=== PATIENT | female | born 1940 | race Caucasian/White ===

== ENCOUNTER 2023-04-03 12:30 | Emergency (ER) | payer MEDICARE, BC, SELFPAY ==
[2023-04-03] VITALS (10 sets, daily range): BP systolic 98–126; BP diastolic 49–84
[2023-04-03 13:04] LABS: % Basophils 0.4 % (0-2); % Eosinophils 0.6 % (0-6); % Immature Granulocytes 0.4 % (0-0.5); % Lymphocytes 23.2 % (20.5-51.1); % Monocytes 7.1 % (1.7-9.3); % Neutrophils 68.3 % (42.2-75.2); Absolute Lymphocytes 1.6 10^3/uL (1.2-3.4); Absolute Monocytes 0.5 10^3/uL (0.1-0.6); Absolute Neutrophils 4.8 10^3/uL (1.4-6.5); Hematocrit 36.7 % (37.0-47.0); Hemoglobin 12.4 g/dL (12.0-16.0); Mean Corp Hgb Conc. 33.8 g/dL (33.0-37.0); Mean Corpuscular Hgb 30.3 pg (27.0-31.0); Mean Corpuscular Volume 89.7 fL (81.0-99.0); Mean Platelet Volume 9.2 fL (7.4-10.4); Nucleated Red Blood Cells % 0 %; Platelet Count 142 10^3/uL (130-400); Red Blood Cell Count 4.09 10^6/uL (4.20-5.40); Red Cell Dist. Width 13.8 % (11.5-14.5)
[2023-04-03 13:15] LABS: COVID-19 Antigen Negative (Negative)
[2023-04-03 13:33] LABS: ALT (SGPT) 27 U/L (0-35); AST (SGOT) 43 U/L (14-36); Albumin 3.6 g/dl (3.5-5.0); Alkaline Phosphatase 87 U/L (38-126); Blood Urea Nitrogen 18 mg/dl (7-17); Calcium 9.5 mg/dl (8.4-10.2); Carbon Dioxide 23 mmol/L (22-30); Chloride 99 mmol/L (98-107); Glucose 128 mg/dl (70-99); Potassium 3.8 mmol/L (3.5-5.1); Sodium 132 mmol/L (135-145); Total Bilirubin 0.8 mg/dl (0.2-1.3); Total Protein 6.1 g/dl (6.3-8.2); eGFR > 60.00
--- NOTE | 2023-04-03 13:34 | ED.GENMED ---
History of Present Illness
General
Chief Complaint: Fatigue
Source: patient and records
Exam Limitations: clinical condition
Time Seen by Provider: 04/03/23 13:21
Travel History
Have you had any contact with someone who has COVID-19?: Yes
Comment: santinorajesh cruz
Do you have any symptoms of coronavirus? Fever > 100 degrees, chills, cough, shortness of breath, sore throat, loss of taste or smell, muscle aches, or headache?: Yes
Symptoms:: cough
History of Present Illness
History of Present Illness:
82-year-old female sent in for general weakness fatigue patient states she has had a cough for few days. Did vomit this morning apparently. Low-grade fever. No shortness of breath chest pain abdominal pain no urinary symptoms.
Past History
Past History
ED Past Medical History: Cancer, CVA, GERD, HTN, IDDM and Other
ED Past Surgical History: Cholecystectomy and Orthopedic
Social History
Tobacco: Non-smoker
Alcohol: None
Drug: None
Personal:
Living: half-way ([facility])
Employment: Other
Family History
Family History: Other
Review of Systems
Review of Systems
All Other Systems: Not applicable
Cardiac: Denies chest pain
ABD/GI: Denies abdominal pain
Phy Exam
Physical Exam
Physical Exam:
GENERAL: Alert. Answers questions appropriately. No distress. Elderly and frail
EYE: Orbits normal.
NECK: Supple, no significant adenopathy.
ENT: Pharynx without erythema
CARDIAC: Regular rate and rhythm with moderate midsystolic murmur
LUNGS: No respiratory distress. Pulse ox is 90 to 94%. Occasional rhonchi in the right base
ABDOMEN: Soft, without focal tenderness or distention
NEUROLOGICAL: Alert. Grossly nonfocal
SKIN: Warm and dry, no rash or lesion, no discoloration, skin intact.
MUSCULOSKELETAL: No edema,no deformity.Good color
PSYCH: Normal and appropriate interaction.
Course
Orders/Labs/Results
Orders:
Orders
04/03/23 12:45
CMP [Comprehensive Metabolic Panel] Urgent
COVID-19 Antigen Urgent
Source: Nasal Swab
Complete Blood Count/With Diff Urgent
Influenza A+B Rapid Molecular Urgent
MAY Source: Nasal Swab
Specimen Description:
04/03/23 13:26
Electrocardiogram (*1) Urgent
Reason for Study: Other
Other Reason for Exam: sepsis
Cardiac Monitoring- Treatment ONCE
EKG- Treatment ONCE
IV Insert/Care/Rem.- Treatment PRN
CXR2 [CR Chest - 2 Views ] Urgent
Comment:
Reason For Exam: cough weak
Pulse Ox/cont/shift [RESP] Urgent
Quantity: 1
04/03/23 13:39
Blood Culture Q30M
MAY Source: Blood/Venous
Specimen Description:
Blood Culture Q30M
MAY Source: Blood/Venous
Specimen Description:
04/03/23 17:22
Urinalysis Reflex To Culture Urgent
Date Specimen was Collected: 04/03/23
Time Specimen was Collected: 17:21
Abnormal Lab Results
04/03/23
12:45
RBC 4.09 L 10^6/uL
(4.20-5.40)
Hct 36.7 L %
(37.0-47.0)
Sodium 132 L mmol/L
(135-145)
BUN 18 H mg/dl
(7-17)
Glucose 128 H mg/dl
(70-99)
AST 43 H U/L
(14-36)
Total Protein 6.1 L g/dl
(6.3-8.2)
04/03/23 12:45
04/03/23 12:45
Vital Signs
Initial and Last Documented VS:
Initial Vital Signs
Temp Pulse Resp BP Pulse Ox
97.9 F 67 16 109/59 95
04/03/23 12:35 04/03/23 12:35 04/03/23 12:35 04/03/23 12:35 04/03/23 12:35
Last Documented Vital Signs
Temp Pulse Resp BP Pulse Ox
97.9 F 63 27 114/59 95
04/03/23 12:35 04/03/23 15:15 04/03/23 15:15 04/03/23 15:00 04/03/23 15:15
*Radiology
Radiology exam reviewed: radiology read reviewed (Negative)
*Pulse Oximetry
Patient hypoxic: no
*EKG
Interpreted by ED Provider?: Yes
Interpretation: abnormal
Comparison EKG: no changes
Heart Rate: 63
Rate: normal
Rhythm: sinus
[place]: normal axis
Interval: first degree heart block
QRS Pattern: normal QRS
Ischemia: no ischemia
*Critical Care Note
Total Time (30-74mins, 75-104mins- exclusive of procedures): Not Applicable
Data Reviewed
Review of Other/Old Records Reveals: Labs, Records and Testing
Update Note
Update Note:
Patient has remained medically stable and nontoxic. In no distress. Symptoms are all viral URI-like symptoms. I did try to contact the daughter to inform her of our plan to discharge and follow-up
ED Attending Note
-
Portions of this chart may have been created with voice recognition software.� Occasional wrong word or��sound alike� substitutions may have occurred due to the inherent limitations of voice recognition software.
Discharge Plan
Departure
Patient Disposition: Home (Routine Discharge)
Date of Disposition: 04/03/23
Time of Disposition: 18:44
Patient with high blood pressure during this ER visit?: No
Discharge Problem:
URI/fatigue
Instructions: Fatigue (DC), Generalized Weakness (DC)
Prescriptions:
No Action
metformin 500 MG tablet
500 mg PO BID@0800,1700
atorvastatin 80 MG tablet
80 mg PO HS
acetaminophen 325 MG tablet
650 mg PO Q4HPRN PRN (Reason: mild pain/fever>100.4)
metoprolol succinate 25 MG tablet extended release 24 hr
25 mg PO DAILY
lacosamide [Vimpat] 150 MG tablet
150 mg PO BID
nitroglycerin [Nitrostat] 0.4 mg Tablet, Sublingual
0.4 mg SUBLINGUAL [id number] PRN (Reason: chest pain)
hydrocortisone 10 mg Tablet
10 mg PO BID
(DME) Ocusoft Eyelid Cleansing Pads Pad
MISCELLANEOUS
Rx Instructions:
apply topical to both eyes
ergocalciferol (vitamin D2) 1,250 mcg (50,000 unit) Capsule
1,250 mcg PO QMONTH
sodium chloride 0.65 % Aerosol,[place]
1 spray INTRANASAL Q4HPRN PRN (Reason: congestion)
hydralazine 25 mg tablet
50 mg PO Q8H
famotidine [Pepcid] 20 mg Tablet
20 mg PO BID
magnesium hydroxide [Milk of Magnesia] 400 mg/5 mL Suspension
2,400 mg PO DAILYPRN PRN (Reason: constipation)
bisacodyl [Dulcolax (bisacodyl)] 10 mg Suppository
10 mg AR [id number] PRN (Reason: if no bm aftr mo)
ferrous sulfate 325 mg (65 mg iron) Tablet
325 mg PO MOWEFR
Coricidin HBP Cold and Flu 2-325 mg Tablet
1 tab PO Q4HPRN PRN (Reason: cough)
magnesium oxide 400 mg magnesium Tablet
400 mg PO DAILY
Senna Plus 8.6-50 mg Capsule
2 tab-cap PO Q48H@0800,1700
Gemtesa 75 mg Tablet
75 mg PO QPM
Referrals:
Dov Marshall MD [Family Provider] - Follow up in 2-3 days
Interventions
Interventions:
*Risk Screen - Suicide Last Done: 04/03/23 12:35
*General Assessment Last Done: 04/03/23 12:35
*Neglect/Abuse Screening Last Done: 04/03/23 12:35
ED- Fall Risk Assessment Last Done: 04/03/23 12:35
*ED COVID-19 Vaccine History Last Done: 04/03/23 12:35
[2023-04-03 17:30] LABS: Urine Albumin Negative (Neg - Trace); Urine Bilirubin Negative (Negative); Urine Character Clear (Clear); Urine Color Yellow; Urine Glucose Negative (Negative); Urine Ketone Negative (Negative); Urine Leukocyte Negative (Negative); Urine Nitrite Negative (Negative); Urine Occult Blood Negative (Negative); Urine Specific Gravity 1.015 (<1.030); Urine Urobilinogen Negative (Neg - 1+)
[2023-04-03] MEDS: TYLENOL 650 MG PO (20:23)
== END 2023-04-03 22:50 | disposition home or self-care (01) ==
LOC: EMR 12:30
PROVIDERS: Student in an Organized Health Care Education/Training Program; EMERGENCY PHYSICIAN Emergency Medicine; FAMILY PHYSICIAN Internal Medicine Geriatric Medicine
DX: R53.83 Other fatigue (principal); J06.9 Acute upper respiratory infection, unspecified
CPT/HCPCS: 99285; 71046; 80053; 81003; 85025; 87040; 87502; 87811; 93005

== ENCOUNTER → 2023-04-12 10:48 | Outpatient (REF) | payer MEDICARE, BC, SELFPAY ==
[2023-04-12 10:59] LABS: Urine Albumin Trace (Neg - Trace); Urine Bilirubin Negative (Negative); Urine Character Very Cloudy (Clear); Urine Color Straw; Urine Glucose Negative (Negative); Urine Ketone Negative (Negative); Urine Leukocyte 2+ (Negative); Urine Nitrite Positive (Negative); Urine Occult Blood Negative (Negative); Urine Urobilinogen Negative (Neg - 1+)
[2023-04-12 11:10] LABS: Urine Squamous Cell >30 /LPF (Few)
[2023-04-12 11:11] LABS: Urine Bacteria Many (Negative); Urine Red Blood Cell 0-2 /HPF (0-2); Urine White Cell 70-80 /HPF (0-5)
== END ==
LOC: OLABN 10:48
PROVIDERS: ATTENDING PHYSICIAN Internal Medicine Geriatric Medicine
DX: R30.9 Painful micturition, unspecified (principal)
CPT/HCPCS: 81003; 81015; 87086; 87088; 87186

== ENCOUNTER → 2023-05-04 09:27 | Outpatient (REF) | payer MEDICARE, BC, SELFPAY ==
[2023-05-04 10:00] LABS: Urine Albumin 1+ (Neg - Trace); Urine Bilirubin Negative (Negative); Urine Character Very Cloudy (Clear); Urine Color Straw; Urine Glucose Negative (Negative); Urine Ketone Negative (Negative); Urine Leukocyte 2+ (Negative); Urine Nitrite Positive (Negative); Urine Occult Blood 1+ (Negative); Urine Specific Gravity 1.015 (<1.030); Urine Urobilinogen Negative (Neg - 1+)
[2023-05-04 10:51] LABS: Urine Bacteria Many (Negative); Urine White Cell >100 /HPF (0-5)
== END ==
LOC: OLABN 09:27
PROVIDERS: ATTENDING PHYSICIAN Internal Medicine Geriatric Medicine
DX: Z87.440 Personal history of urinary (tract) infections (principal); R30.0 Dysuria
CPT/HCPCS: 81003; 81015; 87077; 87086; 87186

== ENCOUNTER → 2023-07-27 10:48 | Outpatient (REF) | payer MEDICARE, BC, SELFPAY ==
[2023-07-27 11:46] LABS: Uric Acid 6.3 mg/dl (2.5-6.2)
== END ==
LOC: OLABN 10:48
PROVIDERS: ATTENDING PHYSICIAN Internal Medicine Geriatric Medicine
DX: E79.0 Hyperuricemia without signs of inflammatory arthritis and tophaceous disease (principal)
CPT/HCPCS: 36415; 84550

== ENCOUNTER → 2023-09-06 10:36 | Outpatient (REF) | payer MEDICARE, BC, SELFPAY | LOC: HWRAD 10:36 | PROVIDERS: ATTENDING PHYSICIAN Internal Medicine Geriatric Medicine; REFERRING PHYSICIAN Internal Medicine Hematology & Oncology | DX: C34.90 Malignant neoplasm of unspecified part of unspecified bronchus or lung (principal) | CPT/HCPCS: 71260; 74177; Q9967 ==

== ENCOUNTER → 2023-09-18 11:35 | Outpatient (REF) | payer MEDICARE, BC, SELFPAY ==
[2023-09-18 12:33] LABS: ALT (SGPT) 17 U/L (0-35); AST (SGOT) 24 U/L (14-36); Albumin 3.8 g/dl (3.5-5.0); Alkaline Phosphatase 96 U/L (38-126); Blood Urea Nitrogen 24 mg/dl (7-17); Calcium 9.8 mg/dl (8.4-10.2); Carbon Dioxide 24 mmol/L (22-30); Chloride 102 mmol/L (98-107); Glucose 99 mg/dl (70-99); Potassium 4.4 mmol/L (3.5-5.1); Sodium 134 mmol/L (135-145); Total Bilirubin 0.4 mg/dl (0.2-1.3); Total Protein 6.2 g/dl (6.3-8.2); eGFR > 60.00
== END ==
LOC: OLABN 11:35
PROVIDERS: ATTENDING PHYSICIAN Internal Medicine Geriatric Medicine
DX: D63.8 Anemia in other chronic diseases classified elsewhere (principal)
CPT/HCPCS: 80053

== ENCOUNTER → 2023-10-16 13:30 | Outpatient (REF) | payer MEDICARE, BC, SELFPAY ==
[2023-10-16 16:57] LABS: Blood Urea Nitrogen 25 mg/dl (7-17); Calcium 9.7 mg/dl (8.4-10.2); Carbon Dioxide 21 mmol/L (22-30); Chloride 105 mmol/L (98-107); Glucose 120 mg/dl (70-99); HDL Cholesterol 38 mg/dl; LDL Cholesterol, Calculated 67 mg/dl; Magnesium 1.7 mg/dl (1.6-2.3); Potassium 4.2 mmol/L (3.5-5.1); Sodium 133 mmol/L (135-145); Total Cholesterol 124 mg/dl (50-199); Triglyceride 97 mg/dl (10-149); Very Low Density Lipoprotein 19 mg/dl (0-30); eGFR > 60.00
[2023-10-16 17:11] LABS: Vitamin D, 25-OH*** 53.3 ng/mL (30-80)
[2023-10-16 17:41] LABS: Hematocrit 30.6 % (37.0-47.0); Hemoglobin 10.3 g/dL (12.0-16.0); Mean Corp Hgb Conc. 33.7 g/dL (33.0-37.0); Mean Corpuscular Hgb 29.8 pg (27.0-31.0); Mean Corpuscular Volume 88.4 fL (81.0-99.0); Mean Platelet Volume 9.8 fL (7.4-10.4); Platelet Count 186 10^3/uL (130-400); Red Blood Cell Count 3.46 10^6/uL (4.20-5.40); Red Cell Dist. Width 13.7 % (11.5-14.5); White Blood Cell Count 7.1 10^3/uL (4.8-10.8)
== END ==
LOC: OLABN 13:30
PROVIDERS: ATTENDING PHYSICIAN Internal Medicine Geriatric Medicine
DX: E78.5 Hyperlipidemia, unspecified (principal); E55.9 Vitamin D deficiency, unspecified; Z79.84 Long term (current) use of oral hypoglycemic drugs; E11.9 Type 2 diabetes mellitus without complications
CPT/HCPCS: 36415; 80048; 80061; 82306; 83036; 83735; 85027

== ENCOUNTER → 2023-12-14 10:49 | Outpatient (REF) | payer MEDICARE, BC, SELFPAY ==
[2023-12-14 11:20] LABS: % Basophils 0.4 % (0-2); % Eosinophils 1.3 % (0-6); % Immature Granulocytes 0.4 % (0-0.5); % Lymphocytes 43.8 % (20.5-51.1); % Monocytes 7.4 % (1.7-9.3); % Neutrophils 46.7 % (42.2-75.2); Absolute Eosinophils 0.1 10^3/uL (0-0.7); Absolute Monocytes 0.5 10^3/uL (0.1-0.6); Absolute Neutrophils 3.2 10^3/uL (1.4-6.5); Hematocrit 33.5 % (37.0-47.0); Hemoglobin 11.6 g/dL (12.0-16.0); Mean Corp Hgb Conc. 34.6 g/dL (33.0-37.0); Mean Corpuscular Hgb 30.9 pg (27.0-31.0); Mean Corpuscular Volume 89.3 fL (81.0-99.0); Mean Platelet Volume 10.1 fL (7.4-10.4); Nucleated Red Blood Cells % 0 %; Platelet Count 158 10^3/uL (130-400); Red Blood Cell Count 3.75 10^6/uL (4.20-5.40); Red Cell Dist. Width 13.9 % (11.5-14.5); White Blood Cell Count 6.9 10^3/uL (4.8-10.8)
[2023-12-14 11:56] LABS: Free T4 1.16 ng/dl (0.78-2.19); Total Thyroxine 7.05 ug/dl (5.5-11.0)
[2023-12-14 12:09] LABS: Cortisol, Random 2.1 ug/dl; TSH 3.84 uIU/ml (0.47-4.68)
[2023-12-14 12:10] LABS: ALT (SGPT) 18 U/L (0-35); AST (SGOT) 23 U/L (14-36); Albumin 3.7 g/dl (3.5-5.0); Alkaline Phosphatase 80 U/L (38-126); Blood Urea Nitrogen 20 mg/dl (7-17); Carbon Dioxide 20 mmol/L (22-30); Chloride 106 mmol/L (98-107); Glucose 111 mg/dl (70-99); Magnesium 1.5 mg/dl (1.6-2.3); Potassium 4.5 mmol/L (3.5-5.1); Sodium 137 mmol/L (135-145); Total Bilirubin 0.5 mg/dl (0.2-1.3); Total Protein 6.2 g/dl (6.3-8.2); eGFR > 60.00
[2023-12-15 16:04] LABS: Adrenocorticotropic Hormone 67.2 pg/mL (7.2-63.3)
== END ==
LOC: OLABN 10:49
PROVIDERS: ATTENDING PHYSICIAN Internal Medicine Geriatric Medicine
DX: C34.90 Malignant neoplasm of unspecified part of unspecified bronchus or lung (principal); E27.40 Unspecified adrenocortical insufficiency; R53.83 Other fatigue; Z79.899 Other long term (current) drug therapy
CPT/HCPCS: 36415; 80053; 82024; 82533; 83735; 84436; 84439; 84443; 85025

== ENCOUNTER 2023-12-25 15:33 | Inpatient (IN) | payer MEDICARE, BC, SELFPAY ==
[2023-12-25] VITALS (114 sets, daily range): BP systolic 71–119; BP diastolic 44–100
--- NOTE | 2023-12-25 11:55 | ED.GENMED ---
History of Present Illness
General
Chief Complaint: Unresponsive
Time Seen by Provider: 12/25/23 11:54
History of Present Illness
History of Present Illness:
TIME OF INITIAL ENCOUNTER: 11:55 AM
HPI: I spoke to EMS for history as the patient is currently unresponsive. EMS indicates that they were called for concerns for 'sepsis'. Family, who arrived later, indicates the patient has a history of lung cancer and had been receiving chemo and
other immunotherapy for treatment.
EXAM:
GENERAL: The patient is unresponsive and critically ill in appearance
HEENT: Dry oral mucosa
CARDIOVASCULAR: No murmurs, tachycardic heart rate, irregular rhythm, No chest wall tenderness
PULMONARY: Increased work of breathing and increased respiratory rate
ABDOMEN: Soft with no peritoneal signs, no tenderness
NEUROLOGIC: Unresponsive, no significant response to sternal rub
PSYCHIATRIC: The patient does not participate with care and does not respond to any questioning
EXTREMITIES: Nontender, no edema, no spontaneous movement
SKIN: Skin appears somewhat mottled but warm
NUMBER AND COMPLEXITY OF PROBLEMS ADDRESSED AT THE ENCOUNTER
� Chronic conditions affecting care: The patient was here in May 2022 with septic shock requiring pressors, at that time she had norovirus gastroenteritis
� Acute Exacerbation and/or Progression of Chronic Illness: This is an acute problem
� Differential Diagnosis includes: Sepsis, septic shock, UTI, pneumonia, progression of malignancy, electrolyte abnormalities such as hyponatremia
AMOUNT AND/OR COMPLEXITY OF DATA TO BE REVIEWED AND ANALYZED
� I performed an independent evaluation of and my interpretation is:
EKG: A-fib rate of 176
CT:
X-rays: Chest x-ray shows opacities
Laboratory Studies: White count 3.3, hemoglobin 12.3, creatinine 2.1 which is new, lactic 7.4, urinalysis suggest infection
Other:
� Review of other/old records: I reviewed records, the patient was here with septic shock in the past
� Clinical information was obtained by an independent historian: I spoke to EMS at bedside and also spoke to the daughter over the phone
� Prescriptions/Medications Considered but not given:
� Further testing considered but not performed:
RISK OF COMPLICATIONS AND/OR MORBIDITY OR MORTALITY OF PATIENT MANAGEMENT
� Social determinants of health affecting care: Comes in from his [facility]
� Discussion with other providers: Hospitalist for admission
� Escalation of care including admission/observation vs risk of discharge considered: The patient is critically ill in appearance, had long discussion with family about end-of-life issues, which she is, for now she is DNR/DNI and
will defer any further treatment such as pressors to hospitalist.
ANY OTHER UPDATES:
12:15 PM: I spoke to the daughter over the phone. She confirms the patient is DNR/DNI. She does not want any aggressive measures. The patient does appear to be septic as she is tachycardic and febrile and is hypotensive. She was given rectal
Tylenol.
1:25 PM: Heart rate remains elevated with rapid A-fib�considered cardioversion versus rate control. Family could not clearly decide any further aggressive measures. For now just continuing fluids and antibiotics.
Past History
Past History
ED Past Medical History: Cancer, CVA, GERD, HTN, IDDM and Other
ED Past Surgical History: Cholecystectomy and Orthopedic
Social History
Tobacco: Non-smoker
Alcohol: None
Drug: None
Personal:
Living: alf ([facility])
Employment: Other
Family History
Family History: Other
Phy Exam
Physical Exam
Physical Exam:
See HPI
Sepsis
Sepsis Screening
Sepsis Assessment: Septic Shock
Sepsis Screening: Lactate >/=4mmol/L and Sustained Hypotension-SBP <90,MAP<65, or SBP decrease 40mmHg or more
Sepsis Screen
Sepsis Screen: Septic Shock
Date: 12/25/23
Time: 14:27
Course
Orders/Labs/Results
Orders:
Orders
12/25/23 11:54
Electrocardiogram (*1) Urgent
Reason for Study: Other
Other Reason for Exam: Possible Sepsis
Cardiac Monitoring- Treatment ONCE
IV Insert/Care/Rem.- Treatment PRN
Straight cath- Treatment ONCE
O2 Therapy [RESP] Urgent
Titrate/Wean O2 to maintain O2 sat greater than (%): 93
Special Instructions: TO MAINTAIN CONTINUOUS O2 SATS > OR = 93%
Pulse Ox/cont/shift [RESP] Urgent
Quantity: 1
Special Instructions: CONTINUOUS
12/25/23 11:55
EKG- Treatment ONCE
CR Chest Portable - 1 View Urgent
Comment:
Reason For Exam: unresposive tachypnea
Reason Study Needs to be Portable: Patient Unstable
12/25/23 11:59
Complete Blood Count/With Diff Urgent
Comprehensive Metabolic Panel Urgent
Lactic Acid Q4H
Comment: ON ICE, CANCEL 2ND ORDER IF FIRST LACTIC ACID LEVEL <2
Urinalysis Reflex To Culture Urgent
Date Specimen was Collected: 12/25/23
Time Specimen was Collected: 11:55
Urine Microscopic Reflex Cult Urgent
Blood Culture Urgent
MAY Source: Blood/Venous
Specimen Description:
Influenza A+B Rapid Molecular Urgent
MAY Source: Nasal Swab
Specimen Description:
Urine Culture Urgent
MAY Source: U
Specimen Description:
Date Specimen was Collected: 12/25/23
Time Specimen was Collected: 11:55
12/25/23 12:05
COVID-19 Antigen Urgent
Source: Nasal Swab
12/25/23 12:07
0.9% Sodium Chloride 1000 ml [Nss] 1,000 ml IV BOLUS
Acetaminophen [Tylenol/Feverall] 650 mg RECTAL NOW STA
12/25/23 12:08
Acetaminophen [Tylenol/Feverall] 650 mg .ROUTE .STK-MED ONE
12/25/23 12:10
Cortisol, Random Urgent
Hydrocortisone Sod Succinate [Solu-Cortef] 100 mg IV NOW STA
12/25/23 12:19
Cefepime HCl [Maxipime] 1,000 mg IV NOW STA
12/25/23 12:20
0.9% Sodium Chloride 1000 ml [Nss] 1,000 ml IV BOLUS
12/25/23 12:24
Sterile Water [Sterile Water For Injection] 10 ml .ROUTE .STK-MED ONE
12/25/23 12:25
Vancomycin [Vancocin] 1,250 mg 0.9% Sodium Chloride 250 ml [Nss] 250 ml IV NOW
12/25/23 14:00
VANCOMYCIN Pharmacy to Dose [VANCOCIN Pharmacy to Dose] 1 each Pharmacy To Prepare [Call Pharmacy To Prepare] 0 ml IV PER PROTOCOL
12/25/23 14:18
Urine Culture Routine
MAY Source: Urine
Specimen Description:
Precautions As Directed
Type of Precautions: Neutropenic
12/25/23 14:19
Urinalysis Routine
12/25/23 16:00
Lactic Acid Q4H
Comment: ON ICE, CANCEL 2ND ORDER IF FIRST LACTIC ACID LEVEL <2
Abnormal Lab Results
12/25/23
11:59
WBC 3.3 L 10^3/uL
(4.8-10.8)
RBC 4.03 L 10^6/uL
(4.20-5.40)
Plt Count 68 L 10^3/uL
(130-400)
Absolute Neuts (auto) 0.2 L* 10^3/uL
(1.4-6.5)
Neutrophils % 5.9 L %
(42.2-75.2)
Lymphocytes % 89.9 H %
(20.5-51.1)
Carbon Dioxide 15 L mmol/L
(22-30)
BUN 48 H mg/dl
(7-17)
Creatinine 2.1 H mg/dL
(0.6-1.0)
Glucose 122 H mg/dl
(70-99)
Lactic Acid 7.4 H* mmol/L
(0.7-2.0)
AST 37 H U/L
(14-36)
Total Protein 5.9 L g/dl
(6.3-8.2)
Albumin 3.4 L g/dl
(3.5-5.0)
Urine Ketones Trace A
(Negative)
Urine Bilirubin 1+ A
(Negative)
Leukocyte Esterase Rfl 2+ A
(Negative)
Urine RBC 3-6 A /HPF
(0-2)
Urine WBC (Reflex) 11-15 A /HPF
(0-5)
Urine Bacteria (Reflex) Moderate A
(Negative)
12/25/23 11:59
12/25/23 11:59
Vital Signs
Initial and Last Documented VS:
Initial Vital Signs
Pulse Resp
197 44
12/25/23 11:51 12/25/23 11:51
Last Documented Vital Signs
Temp Pulse Resp BP Pulse Ox
101.7 F H 163 35 84/63 98
12/25/23 13:55 12/25/23 14:05 12/25/23 14:05 12/25/23 14:05 12/25/23 14:10
*Critical Care Note
Total Time (30-74mins, 75-104mins- exclusive of procedures): 60min
comment:
The patient is critically ill in appearance. She arrives with septic shock. Broad-spectrum antibiotics were given and aggressive IV fluids were also given. Considered cardioversion/rate control however family could not give a clear answer as to
further recommendations/wishes. Confirmed that she is DNR/DNI. Will hold off on pressors for now.
ED Attending Note
-
Portions of this chart may have been created with voice recognition software.� Occasional wrong word or��sound alike� substitutions may have occurred due to the inherent limitations of voice recognition software.
Discharge Plan
Departure
Patient Disposition: Admit
Date of Disposition: 12/25/23
Time of Disposition: 13:20
Presentation/result/management discussed w/ accepting MD/DO: Hospitalist
Discharge Problem:
Septic shock
Prescriptions:
No Action
metformin 500 MG tablet
500 mg PO BID
atorvastatin 80 MG tablet
40 mg PO HS
acetaminophen 325 MG tablet
650 mg PO Q4HPRN PRN (Reason: mild pain/fever>100.4)
metoprolol succinate 25 MG tablet extended release 24 hr
25 mg PO DAILY
lacosamide [Vimpat] 150 MG tablet
150 mg PO BID
nitroglycerin [Nitrostat] 0.4 mg Tablet, Sublingual
0.4 mg SUBLINGUAL [id number] PRN (Reason: chest pain)
hydrocortisone 10 mg Tablet
10 mg PO BID
(DME) [employer]oft Eyelid Cleansing Pads Pad
MISCELLANEOUS
Rx Instructions:
apply topical to both eyes
sodium chloride 0.65 % Aerosol,[place]
1 spray INTRANASAL Q4HPRN PRN (Reason: congestion)
hydralazine 25 mg tablet
50 mg PO Q8H
famotidine [Pepcid] 20 mg Tablet
20 mg PO BID
magnesium hydroxide [Milk of Magnesia] 400 mg/5 mL Suspension
2,400 mg PO DAILYPRN PRN (Reason: constipation lasting more then 3 days)
bisacodyl [Dulcolax (bisacodyl)] 10 mg Suppository
10 mg PA [id number] PRN (Reason: if no bm aftr mom)
ferrous sulfate 325 mg (65 mg iron) Tablet
325 mg PO MOWEFR@0830
Coricidin HBP Cold and Flu 2-325 mg Tablet
2 tab PO Q6H
magnesium oxide 400 mg magnesium Tablet
400 mg PO MOWEFR@0830
Senna Plus 8.6-50 mg Capsule
2 tab-cap PO Q48H@1830
prednisone 10 mg Tablet
30 mg PO UD
Rx Instructions:
give 30mg daily 12/25/23-12/27/23, then 20mg daily on 12/28/23-12/30/23 then 10mg daily on 12/31/23-01/04/24
ondansetron HCl [Zofran] 8 mg Tablet
8 mg PO TIDPRN PRN (Reason: nausea)
dexamethasone 4 mg Tablet
4 mg PO UD
Rx Instructions:
give on 01/08/24 before and after chemo
cranberry 400 mg Capsule
400 mg PO DAILY
folic acid 1 mg Tablet
1 mg PO DAILY
Chloraseptic Lozenge
1 mónica MUCOUS MEMBRANE Q2HPRN PRN (Reason: cough)
cholecalciferol (vitamin D3) 1,250 mcg (50,000 unit) Tablet
1,250 mcg PO WE
Rx Instructions:
every Monday of each month
Eliquis 2.5 mg Tablet
2.5 mg PO BID
guaifenesin [Mucinex] 600 mg Tablet Extended Release 12hr
600 mg PO TID
Gemtesa 75 mg Tablet
75 mg PO QPM
ipratropium-albuterol [DuoNeb] 0.5 mg-3 mg(2.5 mg base)/3 mL Solution For Nebulization
3 ml INHALATION R Q6HPRN PRN (Reason: sob)
Referrals:
UNKNOWN - PT NOT,INTERVIEWE [Family Provider] -
Interventions
Interventions:
*Risk Screen - Suicide Last Done: 12/25/23 12:04
*General Assessment Last Done: 12/25/23 12:04
*Neglect/Abuse Screening Last Done: 12/25/23 12:04
ED- Fall Risk Assessment Last Done: 12/25/23 12:17
*ED COVID-19 Vaccine History Last Done: 12/25/23 12:04
ED- Neurological Assessment Last Done: 12/25/23 12:16
Discharge Date and Time
Print Language: PORTUGUESE
[2023-12-25] MEDS: TYLENOL/FEVERALL 650 MG RECTAL (12:09)
[2023-12-25] MEDS: NSS 1000 IV ×3 (12:11→21:39)
[2023-12-25] MEDS: SOLU-CORTEF 100 MG IV (12:13)
[2023-12-25] MEDS: MAXIPIME 1000 MG IV (12:25)
[2023-12-25 12:27] LABS: Hematocrit 37.2 % (37.0-47.0); Hemoglobin 12.3 g/dL (12.0-16.0); Mean Corp Hgb Conc. 33.1 g/dL (33.0-37.0); Mean Corpuscular Hgb 30.5 pg (27.0-31.0); Mean Corpuscular Volume 92.3 fL (81.0-99.0); Mean Platelet Volume 10.4 fL (7.4-10.4); Platelet Count 68 10^3/uL (130-400); Red Blood Cell Count 4.03 10^6/uL (4.20-5.40); Red Cell Dist. Width 13.7 % (11.5-14.5); White Blood Cell Count 3.3 10^3/uL (4.8-10.8)
[2023-12-25 12:30] LABS: AST (SGOT) 37 U/L (14-36); Albumin 3.4 g/dl (3.5-5.0); Alkaline Phosphatase 60 U/L (38-126); Blood Urea Nitrogen 48 mg/dl (7-17); Carbon Dioxide 15 mmol/L (22-30); Chloride 102 mmol/L (98-107); Estimated Creatinine Clearance 18 ml/min; Glucose 122 mg/dl (70-99); Potassium 4.3 mmol/L (3.5-5.1); Sodium 137 mmol/L (135-145); Total Bilirubin 1.3 mg/dl (0.2-1.3); Total Protein 5.9 g/dl (6.3-8.2); eGFR 22.95
[2023-12-25 12:33] LABS: Lactic Acid 7.4 mmol/L (0.7-2.0)
[2023-12-25 12:34] LABS: Urine Albumin Trace (Neg - Trace); Urine Bilirubin 1+ (Negative); Urine Character Clear (Clear); Urine Color Yellow; Urine Glucose Negative (Negative); Urine Ketone Trace (Negative); Urine Leukocyte 2+ (Negative); Urine Nitrite Negative (Negative); Urine Occult Blood Negative (Negative); Urine Urobilinogen Negative (Neg - 1+)
[2023-12-25 12:38] LABS: ALT (SGPT) 31 U/L (0-35)
[2023-12-25] MEDS: VANCOCIN 275 MG IV (12:48)
[2023-12-25 12:52] LABS: Urine Squamous Cell 16-20 /LPF (Few)
[2023-12-25 12:53] LABS: Urine Bacteria Moderate (Negative)
[2023-12-25 12:56] LABS: COVID-19 Antigen Negative (Negative)
[2023-12-25 13:19] LABS: % Basophils 0.3 % (0-2); % Eosinophils 1.5 % (0-6); % Lymphocytes 89.9 % (20.5-51.1); % Monocytes 2.4 % (1.7-9.3); % Neutrophils 5.9 % (42.2-75.2); Absolute Eosinophils 0.1 10^3/uL (0-0.7); Absolute Lymphocytes 2.9 10^3/uL (1.2-3.4); Absolute Monocytes 0.1 10^3/uL (0.1-0.6); Absolute Neutrophils 0.2 10^3/uL (1.4-6.5); Nucleated Red Blood Cells % 0 %
--- NOTE | 2023-12-25 15:42 | HPS.HSE ---
Addendum entered and electronically signed by Salvador Layton MD 12/25/23 21:53:
Attending Addendum-
I performed a history and physical exam of the patient and discussed his management with the resident. I reviewed the resident's note and agree with the documented findings and plan of care CC/HPI- Patient sent to ED due to unresponsive episode from
[facility]. Patient found to be in hypoxic and septic. Patient on NRB and states she feels SOB. Full 12 point ROS reviewed and negative except as documented Exam- vitals reviewed in EMR GEN-Moderate distress heart irreg irreg tachycardic lungs
crackles throughout abd soft NT LE no edema
Plan:
#Acute Hypoxemic Respiratory Failure/Severe Sepsis from PNA/Neutropenic Fever
- admit to IMU as patient is DNI and initially refusing pressors
- c/s heme onc
- follow ANC, 200 on presentation
- cont cefepime and vancomycin
- trend lactate
- judicious fluids
- start levophed if needed to maintain map > 65
- IVF 30ml/ml, bolus x 2 L given
- patient prone to pulm edema
- overall guarded prognosis
- blood and urine cx-P
- Repeat labs in am
#Rapid Afib
- cards c/s
- unable to start Cardizem due to hypotension
- likely start amiodarone
- start hep gtt as unable to take PO and high CHADsVasc score
# HOLLIE with Metabolic Acidosis
- c/s nephro
- IVF per nephro
- lactated ringers given
- repeat BMP in am
# Adrenal Insufficiency due to adenoma
- stress dose steroids
- bolus given
- repeat BMP in am
- resume home dose if able when able
# LUNG ca
- s/p Neulasta and chemo recently
- c/s hemeonc
- no chemo while sepsis
- repeat labs in am
# Leukopenia/Thrombocytopenia
- like ca related
- repeat CBC in am
# DM-
- hold metformin
- add SSI
# HTN-
- hold hydralazine
# HLD-
- hold atorvastatin for now
-
DVT- hep GTT
CODE- DNR/DNI- pressors OK
ACP
Patient consented to discuss, was alone but d/w family and daughter over phone, time spent explanation of advance directives, changes in health status, patient�s health care wishes if the patient becomes unable to make health decisions, goals of
care, code status, and prognosis- 18 minutes
CC
Due to a high probability of clinically significant, life-threatening deterioration, the patient required a high level of preparedness to intervene emergently. I personally spent this critical care time directly and personally managing the patient.
This critical care time included obtaining a history; examining the patient; ordering and review of studies and STAT labs; arranging urgent treatment with development of a management plan; evaluation of patient's response to treatment; reassessment;
and, discussions with other providers.
This critical care time was performed to assess and manage the high probability of imminent, life-threatening deterioration that could result in multi-organ failure. It was exclusive of separately billable procedures and treating other patients and
teaching time. total time documented is exclusive of any additional time listed that was spent in advance care planning discussion - 75 minutes
Total critical care time: Approximately 75 minutes
Original Note:
Family Physician
-
Family Physician: Unknown
Chief Complaint
-
Allergies
Allergy/AdvReac Type Severity Reaction Status Date / Time
No Known Allergies Allergy Verified 04/20/22 12:09
History of Present Illness
Patient is an 83-year-old female with past medical history of A-fib rate controlled on metoprolol, lung cancer with recent chemotherapy who was brought to ED from [facility] on 12/25/2023 with concerns of sepsis. I spoke with son and
daughter who stated that their mom was found unresponsive but they do not have any further information about why. They however told me that she received chemotherapy and immunotherapy for lung cancer about 6 days ago, she follows oncology with
[facility].
While in the ED, her blood pressure was as low as 80/45 on admission with temperature of 104.5 F max, pulse 161, respiratory 29, saturating at 100% on nonrebreather mask. CXR 12/25/2023 Limited, with suspected retrocardiac opacities representing
either left lung atelectasis or pneumonia. I spoke to daughter about the prospects of starting pressors, and she is totally okay with both pressors and BiPAP. However, they still do not want any invasive procedures done.
Her WBC count is 3.3, Hb 12.3, platelets 68 with ANC 0.2.Her lactic acid level is 7.2, EGFR 22.95, creatinine clearance 18. Her urinalysis was remarkable for UTI, patient was started on vancomycin and cefepime and is being admitted to ICU for
further evaluation and management.
Medical History
Past Medical History
Past Medical History: Reports Arrhythmia (Paroxysmal A-fib), CAD, Cancer (Lung Ca), Dementia, GERD, HTN, NIDDM, Seizures and Other (History of adrenal cancer, hypomagnesemia, NSTEMI, TME, Anemia of chronic disease, depression.)
Past Surgical History: Reports Other
Social History
Unable to obtain full social history at this time due to: Patient Non-verbal
Family History
Family History: Not pertinent
Allergies / Home Medications
Allergies
Allergy/AdvReac Type Severity Reaction Status Date / Time
No Known Allergies Allergy Verified 04/20/22 12:09
Home Medications
acetaminophen 325 mg tablet 650 mg PO Q4HPRN PRN mild pain/fever>100.4 04/08/21
atorvastatin 80 mg tablet 40 mg PO HS High cholesterol 04/08/21
lacosamide 150 mg tablet (Vimpat) 150 mg PO BID Neurological Condition 04/08/21
metformin 500 mg tablet 500 mg PO BID Diabetes 04/08/21
metoprolol succinate 25 mg tablet,extended release 24 hr 25 mg PO DAILY Blood pressure 04/08/21
hydrocortisone 10 mg tablet 10 mg PO BID Anti-inflammatory 01/25/22
miscellaneous medical supply ([employer]oft Eyelid Cleansing Pads) 01/25/22
nitroglycerin 0.4 mg sublingual tablet (Nitrostat) 0.4 mg sublingual [id number] PRN chest pain 01/25/22
hydralazine 25 mg tablet 50 mg PO Q8H Blood pressure 04/20/22
sodium chloride 0.65 % nasal spray aerosol 1 spray intranasal Q4HPRN PRN congestion 04/20/22
bisacodyl 10 mg rectal suppository (Dulcolax (bisacodyl)) 10 mg ME [id number] PRN if no bm aftr mom 04/03/23
chlorpheniramine-acetaminophen 2 mg-325 mg tablet (Coricidin HBP Cold and Flu) 2 tab PO Q6H 04/03/23
famotidine 20 mg tablet (Pepcid) 20 mg PO BID 04/03/23
ferrous sulfate 325 mg (65 mg iron) tablet 325 mg PO MOWEFR@0830 04/03/23
magnesium hydroxide 400 mg/5 mL oral suspension (Milk of Magnesia) 2,400 mg PO DAILYPRN PRN constipation lasting more then 3 days 04/03/23
magnesium oxide 400 mg PO MOWEFR@0830 04/03/23
sennosides 8.6 mg-docusate sodium 50 mg capsule (Senna Plus) 2 tab-cap PO Q48H@1830 04/03/23
apixaban 2.5 mg tablet (Eliquis) 2.5 mg PO BID 12/25/23
cholecalciferol (vitamin D3) 1,250 mcg (50,000 unit) tablet 1,250 mcg PO WE 12/25/23
cranberry 400 mg capsule 400 mg PO DAILY 12/25/23
dexamethasone 4 mg tablet 4 mg PO UD 12/25/23
folic acid 1 mg tablet 1 mg PO DAILY 12/25/23
guaifenesin 600 mg tablet, extended release 12 hr (Mucinex) 600 mg PO TID 12/25/23
ipratropium 0.5 mg-albuterol 3 mg (2.5 mg base)/3 mL nebulization soln 3 ml inhalation R Q6HPRN PRN sob 12/25/23
ondansetron HCl 8 mg tablet 8 mg PO TIDPRN PRN nausea 12/25/23
phenol-phenolate sodium lozenges 1 mónica mucous membrane Q2HPRN PRN cough 12/25/23
prednisone 10 mg tablet 30 mg PO UD 12/25/23
vibegron 75 mg tablet (Gemtesa) 75 mg PO QPM 12/25/23
Allergies reflects when Allergies were last updated in [employer].
Home Medications with original date entered in [employer]
Allergy/Medication List:
If medication reconciliation has not been performed, why?: Other
If Other, explain: Patient unresponsive
Review of Systems
-
Unable to obtain full review of systems at this time due to: Dementia
A 12 point ROS was completed and negative except as noted: Yes
Constitutional: Reports See HPI and Fever
Respiratory: Reports Trouble Breathing
Physical Exam
Vital Signs
Vital Signs
Temp Pulse Resp BP Pulse Ox
101.7 F H 161 29 93/71 100
12/25/23 13:55 12/25/23 15:35 12/25/23 15:35 12/25/23 15:35 12/25/23 15:15
Physical Exam
General: Appears in Distress
Respiratory: Crackles
Cardiac: S1/S2, Irregular Rhythm, Tachycardia and JVD
GI: Soft
Skin: Warm
Laboratory Results
-
12/25/23 11:59
12/25/23 11:59
Laboratory Results
Lactic Acid 7.4 mmol/L (0.7-2.0) H* 12/25/23 11:59
Total Bilirubin 1.3 mg/dl (0.2-1.3) 12/25/23 11:59
AST 37 U/L (14-36) H 12/25/23 11:59
ALT 31 U/L (0-35) 12/25/23 11:59
Alkaline Phosphatase 60 U/L (38-126) 12/25/23 11:59
Data Reviewed
-
Diagnostic Radiology: Image Personally Visualized and interpreted, Report Reviewed by me and Discussed with Physician
Lab Data: Labs Reviewed by me and Discussed with Physician
Old Records: Reviewed
Impression/Plan
-
IMPRESSION:83-year-old female who resides at [facility], with past medical history of A-fib on Eliquis, lung cancer on chemotherapy, who presented to ED 12/25/2023 unresponsive and hypotensive. There is concerns for septic shock with labs
showing lactic acidosis.
Assessment and plan:
#Septic shock:
-Most likely due to UTI vs chronic secondary adrenal insufficiency.
-S/p 3L NS.
-CXR most likely atelectasis versus pneumonia.
-Continue empiric IV vancomycin and cefepime.
-IV hydrocortisone Q8 hours given history of adrenal insufficiency.
-If MAP is <65, start Levophed; family okay with Levophed.
-Nephrology consult.
#A-fib with RVR
-CXR 12/25/2023 with A-fib with RVR
-Patient on 25 mg metoprolol p.o. daily on admission.
-Metoprolol on hold given BP, patient n.p.o.
-Amiodarone started.
-Consider Cardizem drip.
-Cardiology consult.
#HOLLIE
-Creatinine 2.1, baseline 0.7.
-Most likely prerenal given septic shock.
-Continue IV fluid
-Consider pressors with fluid overload.
-Follow creatinine
#Lactic acidosis
-Resolved.
-Initial lactic acid 7.4, 1.9 on repeat s/p 2 bolus IVF.
-Continue IV fluid.
-Monitor for volume overload.
#Bicytopenia
-Platelets 68K, WBC 3.3
-Most likely due to recent chemotherapy/immunotherapy.
-Oncology consult.
-Neutropenic precautions.
-Transfuse platelets if <20 K.
#Hx of Lung cancer.
-Follows oncology at [facility].
-S/p chemotherapy/immunotherapy 6 days ago per daughter.
-Oncology consult.
#Essential hypertension
-Hold hydralazine, and metoprolol given septic shock.
#Adrenal insufficiency
-Stress dose steroids with 100 mg hydrocortisone IV then every 8 hours.
#Type 2 diabetes mellitus
Hold metformin.
-Start sliding scale insulin low.
#GERD
-Continue PPI
#History of CVA
-Continue statin and aspirin when able.
#DVT prophylaxis
-Heparin
[2023-12-25] MEDS: PROTONIX IV 40 MG IV (16:22)
[2023-12-25] MEDS: NSS (PRESERVATIVE FREE) 10 ML IV (16:23)
--- NOTE | 2023-12-25 16:26 | CON.CAR ---
Documented by User: BOBBY Hernandez 12/25/23 16:39
Consultation
Consultation Request
Date/Time Consultation Requested: 12/25/2023 15:00
Date/Time Consultation Performed: 12/25/2023 15:45
Requesting Provider: Dr. Obando (Resident)
Performing Provider: BOBBY Smith for Dr. Chirinos
Reason for Consultation: Atrial fibrillation with rapid ventricular response
Medical History
-
Chief Complaint: Hypoxia and fever
History of Present Illness:
Holly Hester is an 83-year-old female with dementia, seizures, paroxysmal atrial fibrillation (on apixaban), moderate aortic stenosis, hypertension, diabetes, NIDDM, prior CVA, GERD, anemia, adrenal carcinoma with adrenal insufficiency, and prior
lung cancer who presented to the emergency department with a chief complaint of hypoxia. She has associated fever. She was found to be in atrial fibrillation with rapid ventricular response. She is unable to participate in this consultation due
to being nonresponsive. Primary service spoke with family and the plan is for DNR/DNI.
Past Medical History
Past Medical History: Arrhythmias (Paroxysmal atrial fibrillation [on apixaban]), Cancer (Adrenal carcinoma), CVA, GERD, HTN, Hypercholesterolemia, NIDDM, Seizures, Valvular Disease (Moderate aortic stenosis) and Other (dementia)
Social History
Tobacco: Former Smoker
Living: [facility]
Employment: Retired
Family History
Family History: Reviewed & Not Pertinent
Allergies / Home Medications
Allergy/AdvReac Type Severity Reaction Status Date / Time
No Known Allergies Allergy Verified 04/20/22 12:09
�Medication �Instructions �Recorded �Confirmed �Type
acetaminophen 325 mg tablet 650 mg PO Q4HPRN PRN mild 04/08/21 12/25/23 History
pain/fever>100.4
atorvastatin 80 mg tablet 40 mg PO HS High cholesterol 04/08/21 12/25/23 History
lacosamide 150 mg tablet (Vimpat) 150 mg PO BID Neurological 04/08/21 12/25/23 History
Condition
metformin 500 mg tablet 500 mg PO BID Diabetes 04/08/21 12/25/23 History
metoprolol succinate 25 mg 25 mg PO DAILY Blood pressure 04/08/21 12/25/23 History
tablet,extended release 24 hr
hydrocortisone 10 mg tablet 10 mg PO BID Anti-inflammatory 01/25/22 12/25/23 History
miscellaneous medical supply 01/25/22 12/25/23 History
([employer]oft Eyelid Cleansing Pads)
nitroglycerin 0.4 mg sublingual 0.4 mg sublingual [id number] PRN 01/25/22 12/25/23 History
tablet (Nitrostat) chest pain
hydralazine 25 mg tablet 50 mg PO Q8H Blood pressure 04/20/22 12/25/23 History
sodium chloride 0.65 % nasal spray 1 spray intranasal Q4HPRN PRN 04/20/22 12/25/23 History
aerosol congestion
bisacodyl 10 mg rectal suppository 10 mg CA [id number] PRN if no bm aftr 04/03/23 12/25/23 History
(Dulcolax (bisacodyl)) mom
chlorpheniramine-acetaminophen 2 2 tab PO Q6H 04/03/23 12/25/23 History
mg-325 mg tablet (Coricidin HBP
Cold and Flu)
famotidine 20 mg tablet (Pepcid) 20 mg PO BID 04/03/23 12/25/23 History
ferrous sulfate 325 mg (65 mg 325 mg PO MOWEFR@82904/03/23 12/25/23 History
iron) tablet
magnesium hydroxide 400 mg/5 mL 2,400 mg PO DAILYPRN PRN 04/03/23 12/25/23 History
oral suspension (Milk of Magnesia) constipation lasting more then 3
days
magnesium oxide 400 mg PO MOWEFR@82904/03/23 12/25/23 History
sennosides 8.6 mg-docusate sodium 2 tab-cap PO Q48H@1830 04/03/23 12/25/23 History
50 mg capsule (Senna Plus)
apixaban 2.5 mg tablet (Eliquis) 2.5 mg PO BID 12/25/23 12/25/23 History
cholecalciferol (vitamin D3) 1,250 1,250 mcg PO WE 12/25/23 12/25/23 History
mcg (50,000 unit) tablet
cranberry 400 mg capsule 400 mg PO DAILY 12/25/23 12/25/23 History
dexamethasone 4 mg tablet 4 mg PO UD 12/25/23 12/25/23 History
folic acid 1 mg tablet 1 mg PO DAILY 12/25/23 12/25/23 History
guaifenesin 600 mg tablet, 600 mg PO TID 12/25/23 12/25/23 History
extended release 12 hr (Mucinex)
ipratropium 0.5 mg-albuterol 3 mg 3 ml inhalation R Q6HPRN PRN sob 12/25/23 12/25/23 History
(2.5 mg base)/3 mL nebulization
soln
ondansetron HCl 8 mg tablet 8 mg PO TIDPRN PRN nausea 12/25/23 12/25/23 History
phenol-phenolate sodium lozenges 1 mónica mucous membrane Q2HPRN PRN 12/25/23 12/25/23 History
cough
prednisone 10 mg tablet 30 mg PO UD 12/25/23 12/25/23 History
vibegron 75 mg tablet (Gemtesa) 75 mg PO QPM 12/25/23 12/25/23 History
Review of Systems
-
Unable to obtain full review of systems at this time due to: Patient Non Verbal
Physical Exam
Vital Signs
Temp Pulse Resp BP Pulse Ox
100.9 F H 172 28 80/68 99
12/25/23 16:15 12/25/23 16:10 12/25/23 16:10 12/25/23 16:10 12/25/23 15:40
Lab Results
12/25/23 11:59
12/25/23 11:59
Physical Exam
General: Well Developed and Respiratory Distress (Mild)
HEENT: Normocephalic, Anicteric and Moist Mucous Membranes
Respiratory: Crackles and Accessory Resp Muscle Use
Cardiac: S1/S2 and Irregular Rhythm; Negative Peripheral Edema
Breast: Deferred by me
GI: Soft, Non Tender, Non Distended and Normal Bowel Sounds
Rectal: Deferred by Provider
Genito-urinary: No Costovertebral Tender
Musculoskeletal: No Clubbing, No Cyanosis and No Edema
Skin: Warm and Dry
Neuro: AO x 3
Hematologic/Lymphatic: No Lymphadenopathy
Psych: Calm
Impression / Plan
-
BACKGROUND: 83F with paroxysmal atrial fibrillation (apixaban), moderate aortic stenosis, hypertension, dyslipidemia, dementia, former lung cancer, prior CVA, and current adrenal carcinoma presented with hypoxia and fever
Signal Manager: CCP
PLAN:
Sepsis
Acute hypoxic respiratory failure
-She is febrile, tachycardic, HOLLIE, and his lactic acidosis (7.4)
-She is negative for COVID-19 and influenza
-Per primary
Atrial fibrillation with rapid ventricular response
-Rates significantly elevated in the setting of sepsis
-Amiodarone 150 mg bolus x 1 and re-evaluate (she has an HOLLIE and is hypotensive)
-Oral Anticoagulation: Apixaban 2.5 mg twice daily (age 83, weight <60 kg), on hold as she is unresponsive, start heparin drip
-[id number]: score at least 7 (HTN, age 75 or more, Diabetes Mellitus, prior Stroke/TIA, female gender)
HOLLIE, per primary
Aortic stenosis, moderate
Dyslipidemia, on atorvastatin
SUBJECTIVE:
Unable to communicate.
DATA:
Transthoracic echocardiogram, 05/09/2022:
Hyperdynamic left ventricular systolic function. LV ejection fraction is 70-75%
by Marroquin's method of discs.
No regional wall motion abnormalities are seen.
Mild/moderate aortic stenosis. Peak/mean gradients are 27/15mmHg. The valve
area by continuity equation is 1.1cm sq, using a LVOT of 1.9cm. No aortic
regurgitation is seen.
Data Reviewed
-
EKG: Report Reviewed by me (Atrial fibrillation rapid ventricular response, rate 176)

Documented by User: Elroy Chirinos MD (Ellie) 12/25/23 18:30
Impression / Plan
-
BACKGROUND: 83F with paroxysmal atrial fibrillation (apixaban), moderate aortic stenosis, hypertension, dyslipidemia, dementia, former lung cancer, prior CVA, and current adrenal carcinoma presented with hypoxia and fever
Signal Manager: CCP
PLAN:
Sepsis
Acute hypoxic respiratory failure
-She is febrile, tachycardic, HOLLIE, and has lactic acidosis (7.4)
-She is negative for COVID-19 and influenza
-Per primary
Atrial fibrillation with rapid ventricular response
-Rates significantly elevated in the setting of sepsis
-Amiodarone 150 mg bolus x 1 then start drip at 1 mg/min x6h then 0.5mg/min x 18h (she has an HOLLIE and is hypotensive)
-Oral Anticoagulation: Apixaban 2.5 mg twice daily (age 83, weight <60 kg), on hold as she is unresponsive, start heparin drip
-[id number]: score at least 7 (HTN, age 75 or more, Diabetes Mellitus, prior Stroke/TIA, female gender)
HOLLIE, per primary
Aortic stenosis, moderate
Dyslipidemia, on atorvastatin
SUBJECTIVE:
Unable to communicate.
DATA:
Transthoracic echocardiogram, 05/09/2022:
Hyperdynamic left ventricular systolic function. LV ejection fraction is 70-75%
by Marroquin's method of discs.
No regional wall motion abnormalities are seen.
Mild/moderate aortic stenosis. Peak/mean gradients are 27/15mmHg. The valve
area by continuity equation is 1.1cm sq, using a LVOT of 1.9cm. No aortic
regurgitation is seen.
[2023-12-25 16:45] LABS: Lactic Acid 1.9 mmol/L (0.7-2.0)
[2023-12-25] MEDS: CORDARONE 103 MG IV (16:52)
[2023-12-25] MEDS: HEPARIN 25000 UNITS/250 ML IV (16:55)
--- NOTE | 2023-12-25 17:02 | W.CON.NEPH ---
Consultation
-
Date/Time Consultation Requested: 12/25/23 1600
Date/Time Consultation Performed: 12/25/23 1720
Requesting Provider: Dr. Layton
Performing Provider: Dr Hopkins
Reason for Consultation: HOLLIE
Medical History
-
Chief Complaint: HOLLIE
History of Present Illness:
This is an 83-year-old female who resides at [facility]. She has seizure disorder on antiepileptic medications, diabetes mellitus type 2 on metformin therapy, adrenal insufficiency on hydrocortisone therapy. She has a diagnosis of lung cancer
and reportedly has been receiving chemotherapy with [facility]. Reportedly she had chemotherapy last week. She also received Neulasta as well as dexamethasone with her chemotherapy. She was brought into the emergency room today
because of lethargy hypoxia and hypotension. She is minimally responsive. She says that she does have some pain but cannot localize it. In the emergency room her blood pressure was 80 systolic. Her creatinine was elevated at 2.1 up from her
baseline of 0.710 days ago. She also has metabolic acidosis with lactic acidosis. She does have atrial fibrillation on Eliquis therapy. She is currently critically ill and will be going to the ICU
Past Medical History
Seizure disorder
Diabetes type 2
Hypertension
Overactive bladder
Atrial fibrillation
Lung cancer
Right shoulder surgery
Cholecystectomy
Social History
Tobacco: Non-Smoker
Alcohol: None
Family History
Family History: Not Pertinent
Allergies / Home Medications
Allergy/AdvReac Type Severity Reaction Status Date / Time
No Known Allergies Allergy Verified 04/20/22 12:09
�Medication �Instructions �Recorded �Confirmed �Type
acetaminophen 325 mg tablet 650 mg PO Q4HPRN PRN mild 04/08/21 12/25/23 History
pain/fever>100.4
atorvastatin 80 mg tablet 40 mg PO HS High cholesterol 04/08/21 12/25/23 History
lacosamide 150 mg tablet (Vimpat) 150 mg PO BID Neurological 04/08/21 12/25/23 History
Condition
metformin 500 mg tablet 500 mg PO BID Diabetes 04/08/21 12/25/23 History
metoprolol succinate 25 mg 25 mg PO DAILY Blood pressure 04/08/21 12/25/23 History
tablet,extended release 24 hr
hydrocortisone 10 mg tablet 10 mg PO BID Anti-inflammatory 01/25/22 12/25/23 History
miscellaneous medical supply 01/25/22 12/25/23 History
(Ocusoft Eyelid Cleansing Pads)
nitroglycerin 0.4 mg sublingual 0.4 mg sublingual [id number] PRN 01/25/22 12/25/23 History
tablet (Nitrostat) chest pain
hydralazine 25 mg tablet 50 mg PO Q8H Blood pressure 04/20/22 12/25/23 History
sodium chloride 0.65 % nasal spray 1 spray intranasal Q4HPRN PRN 04/20/22 12/25/23 History
aerosol congestion
bisacodyl 10 mg rectal suppository 10 mg ME [id number] PRN if no bm aftr 04/03/23 12/25/23 History
(Dulcolax (bisacodyl)) mom
chlorpheniramine-acetaminophen 2 2 tab PO Q6H 04/03/23 12/25/23 History
mg-325 mg tablet (Coricidin HBP
Cold and Flu)
famotidine 20 mg tablet (Pepcid) 20 mg PO BID 04/03/23 12/25/23 History
ferrous sulfate 325 mg (65 mg 325 mg PO MOWEFR@82904/03/23 12/25/23 History
iron) tablet
magnesium hydroxide 400 mg/5 mL 2,400 mg PO DAILYPRN PRN 04/03/23 12/25/23 History
oral suspension (Milk of Magnesia) constipation lasting more then 3
days
magnesium oxide 400 mg PO MOWEFR@30 04/03/23 12/25/23 History
sennosides 8.6 mg-docusate sodium 2 tab-cap PO Q48H@1830 04/03/23 12/25/23 History
50 mg capsule (Senna Plus)
apixaban 2.5 mg tablet (Eliquis) 2.5 mg PO BID 12/25/23 12/25/23 History
cholecalciferol (vitamin D3) 1,250 1,250 mcg PO WE 12/25/23 12/25/23 History
mcg (50,000 unit) tablet
cranberry 400 mg capsule 400 mg PO DAILY 12/25/23 12/25/23 History
dexamethasone 4 mg tablet 4 mg PO UD 12/25/23 12/25/23 History
folic acid 1 mg tablet 1 mg PO DAILY 12/25/23 12/25/23 History
guaifenesin 600 mg tablet, 600 mg PO TID 12/25/23 12/25/23 History
extended release 12 hr (Mucinex)
ipratropium 0.5 mg-albuterol 3 mg 3 ml inhalation R Q6HPRN PRN sob 12/25/23 12/25/23 History
(2.5 mg base)/3 mL nebulization
soln
ondansetron HCl 8 mg tablet 8 mg PO TIDPRN PRN nausea 12/25/23 12/25/23 History
phenol-phenolate sodium lozenges 1 mónica mucous membrane Q2HPRN PRN 12/25/23 12/25/23 History
cough
prednisone 10 mg tablet 30 mg PO UD 12/25/23 12/25/23 History
vibegron 75 mg tablet (Gemtesa) 75 mg PO QPM 12/25/23 12/25/23 History
Review of Systems
-
Poorly interactive. Endorses pain but cannot localize. No shortness of breath
All other systems: Negative unless noted
Physical Exam
Vital Signs
Vital Signs
Temp Pulse Resp BP Pulse Ox
100.9 F H 151 36 93/69 99
12/25/23 16:15 12/25/23 16:30 12/25/23 16:30 12/25/23 16:30 12/25/23 15:40
Lab Results
WBC 3.3 10^3/uL (4.8-10.8) L 12/25/23 11:59
RBC 4.03 10^6/uL (4.20-5.40) L 12/25/23 11:59
Hgb 12.3 g/dL (12.0-16.0) 12/25/23 11:59
Hct 37.2 % (37.0-47.0) 12/25/23 11:59
Plt Count 68 10^3/uL (130-400) L 12/25/23 11:59
Sodium 137 mmol/L (135-145) 12/25/23 11:59
Potassium 4.3 mmol/L (3.5-5.1) 12/25/23 11:59
Chloride 102 mmol/L (98-107) 12/25/23 11:59
Carbon Dioxide 15 mmol/L (22-30) L 12/25/23 11:59
BUN 48 mg/dl (7-17) H 12/25/23 11:59
Creatinine 2.1 mg/dL (0.6-1.0) H 12/25/23 11:59
eGFR 22.95 12/25/23 11:59
Glucose 122 mg/dl (70-99) H 12/25/23 11:59
Calcium 9.0 mg/dl (8.4-10.2) 12/25/23 11:59
Albumin 3.4 g/dl (3.5-5.0) L 12/25/23 11:59
Laboratory Tests
12/14/23 12/25/23
05:30 11:59
WBC 3.3 L
Absolute Neuts (auto) 0.2 L*
Carbon Dioxide 20 L
Creatinine 0.7
Lactic Acid 7.4 H*
AST 37 H
ALT 31
Physical Exam
Patient is awake alert oriented and in no distress. Mood and affect were pleasant, insight and judgment were good. Pupils are equal round and reactive to light, extraocular movements are intact, sclera were anicteric. Hearing was normal, ears and
nose are intact. Oropharynx was dry. Neck was supple with trachea midline and no thyromegaly. Heart was irregular rate and rhythm without rubs. Lower extremities without edema. Lungs were clear to auscultation bilaterally and with normal
excursion. Abdomen was soft, nontender, with normal active bowel sounds, and no hepatosplenomegaly. Skin was without rash and with normal turgor.
Data Reviewed
-
Radiology: Image Personally Visualized and interpreted (Chest x-ray on 12/25/2023 by my reading shows possible retrocardiac opacities)
Medical Tests (Nuc Med, Echo etc): Image Personally Visualized and interpreted (EKG on 12/25/2023 by my read shows atrial fibrillation rapid ventricular rate left axis deviation)
Labs: Labs Reviewed by me
Old Records: Reviewed
Assessment/Plan
-
Assessment
Lung cancer status post chemotherapy
Hypotension
Metabolic acidosis
lactic acidosis
HOLLIE
Seizure disorder diabetes mellitus type 2
Adrenal insufficiency
Plan
IV fluid resuscitation
Pressors as required, Levophed
Stress dose steroids
Follow BMP
Follow lactate
Follow LFTs
Check urine studies
Family to try to determine goals of care
Try to get records regarding her cancer
Critical care time spent 35 minutes
[2023-12-25 17:09] LABS: APTT 47.6 Sec (23.4-35.0)
[2023-12-25] MEDS: LR 1000 IV (18:09)
[2023-12-25] MEDS: CORDARONE 518 MG IV (18:31)
[2023-12-25 20:08] LABS: Urine Sodium 83 mmol/L (30-90)
[2023-12-25] MEDS: SOLU-CORTEF 50 MG IV (21:38)
[2023-12-25] MEDS: LOPRESSOR 5 MG IV (21:38)
[2023-12-26] VITALS (35 sets, daily range): BP systolic 86–121; BP diastolic 57–106
[2023-12-26 00:11] LABS: APTT 192.9 Sec (23.4-35.0)
[2023-12-26] MEDS: LOPRESSOR 5 MG IV ×4 (03:38→23:59)
[2023-12-26] MEDS: SOLU-CORTEF 50 MG IV ×3 (03:39→19:38)
--- NOTE | 2023-12-26 05:00 | EDRN ---
Report received, patient was placed into a hospital bed after being cleaned up from bowl movement, new gown placed on patient and patient pulled up in bed. VSS will continue to monitor patient.
[2023-12-26] MEDS: DUONEB 3 ML INH (06:19)
--- NOTE | 2023-12-26 06:22 | EDRN ---
Patient has increased coughing, wheezing noted and rhonchi noted, PRN breathing treatment started.
[2023-12-26 06:38] LABS: Hematocrit 25.9 % (37.0-47.0); Hemoglobin 8.8 g/dL (12.0-16.0); Mean Corpuscular Hgb 29.5 pg (27.0-31.0); Mean Corpuscular Volume 86.9 fL (81.0-99.0); Mean Platelet Volume 10.8 fL (7.4-10.4); Platelet Count 43 10^3/uL (130-400); Red Blood Cell Count 2.98 10^6/uL (4.20-5.40); White Blood Cell Count 0.9 10^3/uL (4.8-10.8)
[2023-12-26 06:50] LABS: NT-proBNP 5990 pg/ml
--- NOTE | 2023-12-26 07:03 | EDRN ---
Ignacio texted Irma hawkins about patients temp starting to increase and needing PRN tylenol, she is ordering some meds, also let her know that patients morning labs are off, hgb, hct and platelets dropped, no new orders, states they will address it
during morning rounds
[2023-12-26] MEDS: LOPRESSOR IV (07:06)
--- NOTE | 2023-12-26 07:06 | EDRN ---
Report to DWAIN Pena
[2023-12-26 07:54] LABS: Blood Urea Nitrogen 48 mg/dl (7-17); Calcium 7.6 mg/dl (8.4-10.2); Carbon Dioxide 12 mmol/L (22-30); Chloride 111 mmol/L (98-107); Estimated Creatinine Clearance 31 ml/min; Glucose 252 mg/dl (70-99); Potassium 5.4 mmol/L (3.5-5.1); Sodium 138 mmol/L (135-145); eGFR 44.91
[2023-12-26] MEDS: NSS (PRESERVATIVE FREE) 10 ML IV (08:00)
[2023-12-26] MEDS: PROTONIX IV 40 MG IV (08:00)
[2023-12-26] MEDS: DESENEX/MITRAZOL/ZEASORB 1 APPLIC TOPICAL ×2 (08:01→19:38)
--- NOTE | 2023-12-26 08:18 | W.PN.CD ---
Today's Communication / Plan
-
CBC with abrupt drop in hemoglobin but also abnormal WBC and platelets. Stat repeat CBC ordered
Bicarb also down to 12 despite decrease in lactic acid and improvement in creatinine. Repeat renal profile
IV heparin on hold while CBC being reassessed
Continue amiodarone for rate control. As blood pressure improves can add additional beta-aditya for rate control
Monitor sitting single blood culture pending
Antibiotics directed by primary team
Impression / Plan
-
83-year-old female with dementia, seizures, paroxysmal atrial fibrillation (on apixaban), moderate aortic stenosis, hypertension, diabetes, NIDDM, prior CVA, GERD, anemia, adrenal carcinoma with adrenal insufficiency, and prior lung cancer who
presented to the emergency department with a chief complaint of hypoxia. She has associated fever. She was found to be in atrial fibrillation with rapid ventricular response.
Sepsis
Acute hypoxic respiratory failure
-On admission febrile, tachycardic, HOLLIE, and his lactic acidosis (7.4). Temp currently 100.8
-She is negative for COVID-19 and influenza
-Antibiotics per primary team-
-although lactic acid level has decreased and creatinine has improved bicarbonate down to 12.? Accurate see of labs. Repeat renal profile
Atrial fibrillation with rapid ventricular response
-Rate control improved on IV amiodarone.
-Continue IV amiodarone for rate control
-Anticoagulation currently with heparin. Will need stat repeat of hemoglobin which is dropped from 12.3-8.8. No report of bleeding. Unclear if this is accurate white count is also dropped from 3.3-0.9 and platelets 43. Repeat stat CBC to check
accuracy.
-[id number]: score at least 7 (HTN, age 75 or more, Diabetes Mellitus, prior Stroke/TIA, female gender)
-Follow-up echo this admission
.
Anemia. Acute drop on labs this morning. No acute bleeding noted? Accuracy of lab
-Hold heparin IV
-Stat repeat CBC
HOLLIE, improvement sure. Treatment per primary
Aortic stenosis, moderate. Reassess with echo
Dyslipidemia, on atorvastatin
Physical Exam
Vital Signs/Labs
Vital Signs
Temp Pulse Resp BP Pulse Ox
100.8 F H 107 28 94/71 98
12/26/23 06:38 12/26/23 06:10 12/26/23 06:10 12/26/23 06:00 12/26/23 04:45
12/25/23 12/26/23 12/27/23
06:59 06:59 06:59
Actual Weight 55.8 kg
12/26/23 06:15
12/26/23 06:15
APTT 192.9 Sec (23.4-35.0) H* 12/25/23 23:28
12/26/23
06:15
[id number] Pept 5990
Physical Exam
Constitutional: Other (Tired. Patient was sleeping was able to arouse. Patient oriented to hospital)
Cardiovascular: Rhythm/rate is irregular
Respiratory: Other (Decreased at left base greater than right few crackles at right base)
GI: Soft, Non tender and Normal bowel sounds
Other: Other (No rash detected)
Data Reviewed
-
Date of Service: December 26, 2023
Medical Decision Making: Reviewed Test Results
Echo: Report Reviewed by me
X-Ray/CT/US/MRI/NUC/PET: Report Reviewed by me
Medical Tests (PFT, Pathology etc): Report Reviewed by me
Labs: Labs Reviewed by me
[2023-12-26 08:32] LABS: APTT 120.4 Sec (23.4-35.0)
[2023-12-26 08:50] LABS: Glucose - Point of Care 291 mg/dl (70-99)
[2023-12-26] MEDS: NSS IV (08:50)
--- NOTE | 2023-12-26 08:50 | CON.ONC ---
Impression
Impression
febrile neutropenia
cough, hypoxia, possible PNA on CXR
recurrent lung cancer, recent chemo (first dose) with GCSF at [place]
black stool
pancytopenia, from chemo
rapid afib
Plan
Plan
broad spectrum antibiotics (cefepime, Vanco)
stress dose steroids (on hydrocortisone as outpatient)
follow cultures, fever curve
heme testing of stool, transfuse as clinically indicated
no role for GCSF - got neulasta on 12/20
hold heparin w/ platelets < 50 and suspicion for GI bleeding w/ black stool
DNR
Will follow along
Patient History
History of Present Illness
83 yo w/ recurrent lung cancer (with wade involvement, no disease outside chest), recently resumed treatment, with chemo and immunotherapy (12/18) w/ GCSF (12/20) at [facility] ([facility] Yesterday, she was unresponsive at [facility] (had been
feeling unwell for a few days prior with a sore throat), evaluated in ER and found to have febrile neutropenia (temp 104.5), hypoxia, rapid afib. She's unable to give history, granddaughter at bedside.
Spoke to son (Ramy, via phone) for history.
Patient is usually alert and oriented, in a wheelchair at times.
Started on broad spectrum abx, stress dose steroids, heparin drip.
Labs this am noted for drop in hgb and platelet count < 50, and black stool concerning for GI bleed.
Past-Medical/Surgical History
PMH/PSH - as per the HPI, CVA, GERD, HTN, Hypercholesterolemia, NIDDM, Seizures, Valvular Disease (Moderate aortic stenosis) and Other (dementia)
Social History
Tobacco: Former Smoker
Living: Alf
Employment: Retired
Family History
Family History: Reviewed & Not Pertinent
Patient Medication
�Medication �Instructions �Recorded �Confirmed �Last Taken �Type
acetaminophen 325 mg tablet 650 mg PO Q4HPRN PRN mild 04/08/21 12/25/23 Unknown History
pain/fever>100.4
atorvastatin 80 mg tablet 40 mg PO HS High cholesterol 04/08/21 12/25/23 Unknown History
lacosamide 150 mg tablet (Vimpat) 150 mg PO BID Neurological 04/08/21 12/25/23 12/24/23 History
Condition
metformin 500 mg tablet 500 mg PO BID Diabetes 04/08/21 12/25/23 12/25/23 History
metoprolol succinate 25 mg 25 mg PO DAILY Blood pressure 04/08/21 12/25/23 Unknown History
tablet,extended release 24 hr
hydrocortisone 10 mg tablet 10 mg PO BID Anti-inflammatory 01/25/22 12/25/23 Unknown History
miscellaneous medical supply 01/25/22 12/25/23 Unknown History
(Ocusoft Eyelid Cleansing Pads)
nitroglycerin 0.4 mg sublingual 0.4 mg sublingual [id number] PRN 01/25/22 12/25/23 Unknown History
tablet (Nitrostat) chest pain
hydralazine 25 mg tablet 50 mg PO Q8H Blood pressure 04/20/22 12/25/23 12/25/23 History
sodium chloride 0.65 % nasal spray 1 spray intranasal Q4HPRN PRN 04/20/22 12/25/23 Unknown History
aerosol congestion
bisacodyl 10 mg rectal suppository 10 mg PA [id number] PRN if no bm aftr 04/03/23 12/25/23 Unknown History
(Dulcolax (bisacodyl)) mom
chlorpheniramine-acetaminophen 2 2 tab PO Q6H 04/03/23 12/25/23 12/25/23 History
mg-325 mg tablet (Coricidin HBP
Cold and Flu)
famotidine 20 mg tablet (Pepcid) 20 mg PO BID 04/03/23 12/25/23 Unknown History
ferrous sulfate 325 mg (65 mg 325 mg PO MOWEFR@0830 04/03/23 12/25/23 Unknown History
iron) tablet
magnesium hydroxide 400 mg/5 mL 2,400 mg PO DAILYPRN PRN 04/03/23 12/25/23 Unknown History
oral suspension (Milk of Magnesia) constipation lasting more then 3
days
magnesium oxide 400 mg PO MOWEFR@0830 04/03/23 12/25/23 Unknown History
sennosides 8.6 mg-docusate sodium 2 tab-cap PO Q48H@1830 04/03/23 12/25/23 Unknown History
50 mg capsule (Senna Plus)
apixaban 2.5 mg tablet (Eliquis) 2.5 mg PO BID 12/25/23 12/25/23 Unknown History
cholecalciferol (vitamin D3) 1,250 1,250 mcg PO WE 12/25/23 12/25/23 Unknown History
mcg (50,000 unit) tablet
cranberry 400 mg capsule 400 mg PO DAILY 12/25/23 12/25/23 Unknown History
dexamethasone 4 mg tablet 4 mg PO UD 12/25/23 12/25/23 Unknown History
folic acid 1 mg tablet 1 mg PO DAILY 12/25/23 12/25/23 Unknown History
guaifenesin 600 mg tablet, 600 mg PO TID 12/25/23 12/25/23 Unknown History
extended release 12 hr (Mucinex)
ipratropium 0.5 mg-albuterol 3 mg 3 ml inhalation R Q6HPRN PRN sob 12/25/23 12/25/23 Unknown History
(2.5 mg base)/3 mL nebulization
soln
ondansetron HCl 8 mg tablet 8 mg PO TIDPRN PRN nausea 12/25/23 12/25/23 Unknown History
phenol-phenolate sodium lozenges 1 mónica mucous membrane Q2HPRN PRN 12/25/23 12/25/23 Unknown History
cough
prednisone 10 mg tablet 30 mg PO UD 12/25/23 12/25/23 Unknown History
vibegron 75 mg tablet (Gemtesa) 75 mg PO QPM 12/25/23 12/25/23 Unknown History
Active Medications
Generic Name Dose Route Start Last Admin
Trade Name Freq PRN Reason Stop Dose Admin
Acetaminophen 650 mg 12/26/23 06:50
Acetaminophen 650 Mg Rectal Suppository RECTAL 01/23/24 06:49
Q4HPRN PRN
mild pain/T >100.5
Albuterol/Ipratropium 3 ml 12/25/23 19:57 12/26/23 06:19
Ipratropium 0.5/Albuterol 3 Mg (3 Ml Ampul) INH 3 ml
R Q6HPRN PRN Administration
sob
Protocol
Bisacodyl 10 mg 12/25/23 19:57
Bisacodyl 10 Mg Rectal Suppository RECTAL 01/22/24 19:56
[id number] PRN
if no bm aftr mom
Cefepime HCl 1,000 mg 12/26/23 10:00
Cefepime Hcl 1,000 Mg/11.3 Ml Vial IV
Q8H LUCINDA
Dextrose 12.5 grams 12/25/23 18:20
Dextrose 50% (0.5 Grams/Ml) 50 Ml Syringe IV 01/22/24 18:19
[id number] PRN
hypoglycemia
Protocol
Glucagon 1 mg 12/25/23 18:20
Glucagon 1 Mg Vial IM 01/22/24 18:19
PRN PRN
hypoglycemia
Protocol
Hydrocortisone Sodium Succinate 50 mg 12/25/23 20:00 12/26/23 03:39
Hydrocortisone Sodium Succinate 100 Mg/2 Ml Vial IV 01/22/24 19:59 50 mg
Q8H LUCINDA Administration
Heparin Sodium 25,000 units in 250 mls @ 0 mls/hr 12/25/23 16:30 12/25/23 16:55
Heparin [id number] Units/250 Ml IV 250 mls
PER PROTOCOL LUCINDA Administration
Protocol
Per Protocol
Amiodarone HCl 900 mg/ 518 mls @ 0 mls/hr 12/25/23 17:30 12/25/23 18:31
Dextrose/Water IV 518 mls
PER PROTOCOL LUCINDA Administration
Protocol
Per Protocol
Sodium Bicarbonate 75 meq/ 1,075 mls @ 100 mls/hr 12/26/23 08:45
Sodium Chloride IV 12/27/23 08:32
[id number] LUCINDA
Vancomycin HCl 2,000 mg/ 540 mls @ 270 mls/hr 12/26/23 16:00
Sodium Chloride IV
Q8 LUCINDA
Insulin Aspart 0 units 12/26/23 07:30
Insulin Aspart Low Resistance 300 Units/3 Ml Pen.Injctr SC 01/23/24 07:29
AC LUCINDA
Protocol
Magnesium Hydroxide 30 ml 12/25/23 19:57
Milk Of Magnesia 30 Ml Cup PO 01/22/24 19:56
DAILYPRN PRN
constipation >3 days
Metoprolol Tartrate 5 mg 12/25/23 19:57 12/26/23 07:06
Metoprolol 5 Mg/5 Ml Vial IV 01/22/24 19:56 Not Given
Q6 LUCINDA
Miconazole Nitrate 0 applic 12/26/23 08:00 12/26/23 08:01
Miconazole Powder Bottle TOPICAL 01/23/24 07:59 1 applic
BID LUCINDA Administration
Nitroglycerin 0.4 mg 12/25/23 19:57
Nitroglycerin 0.4 Mg Sl Tablet SL 01/22/24 19:56
[id number] PRN
chest pain
Pantoprazole Sodium 40 mg 12/25/23 16:00 12/26/23 08:00
Pantoprazole Sodium 40 Mg/10 Ml Vial IV 01/22/24 15:59 40 mg
DAILY LUCINDA Administration
Sodium Chloride 10 ml 12/25/23 16:00 12/26/23 08:00
Sodium Chloride 0.9% (Preservative Free) 10 Ml Vial IV 01/22/24 15:59 10 ml
DAILY LUCINDA Administration
Sodium Chloride 0 flush 12/25/23 16:00
Sodium Chloride 0.9% (Flush) Syringe IV 01/22/24 15:59
PER PROTOCOL LUCINDA
Review of Systems
-
Unable to obtain full review of systems at this time due to: Other
All Other Systems: Not reviewed unless documented
Physical Exam
-
General: Appears Chronically Ill; Negative No Apparent Distress or Comfortable
HEENT: Moist Mucous Membranes; Negative Jaundice
Cardiology: Irregular Rate/Rhythm
Pulmonary: Rhonchi
GI: Soft and Normal Bowel Sounds
Musculoskeletal: No Clubbing, No Cyanosis and No Edema
Extremities: Pulses Present; Negative Phlebitic Signs, No C/C/E or Edema
Neurology: No Lateralizing Symptoms
Skin: Warm and Dry
Psych: Agitated
Labs
Lab Results
WBC 0.9 10^3/uL (4.8-10.8) L* 12/26/23 06:15
RBC 2.98 10^6/uL (4.20-5.40) L 12/26/23 06:15
Hgb 8.8 g/dL (12.0-16.0) L D 12/26/23 06:15
Hct 25.9 % (37.0-47.0) L 12/26/23 06:15
MCV 86.9 fL (81.0-99.0) 12/26/23 06:15
MCH 29.5 pg (27.0-31.0) 12/26/23 06:15
MCHC 34.0 g/dL (33.0-37.0) 12/26/23 06:15
RDW 14.0 % (11.5-14.5) 12/26/23 06:15
Plt Count 43 10^3/uL (130-400) L D 12/26/23 06:15
MPV 10.8 fL (7.4-10.4) H 12/26/23 06:15
Abs Immat Gran (auto) 0.0 10^3/uL (0-0.05) 12/25/23 11:59
Absolute Neuts (auto) 0.2 10^3/uL (1.4-6.5) L* 12/25/23 11:59
Absolute Lymphs (auto) 2.9 10^3/uL (1.2-3.4) 12/25/23 11:59
Absolute Monos (auto) 0.1 10^3/uL (0.1-0.6) 12/25/23 11:59
Absolute Eos (auto) 0.1 10^3/uL (0-0.7) 12/25/23 11:59
Absolute Basos (auto) 0.0 10^3/uL (0-0.2) 12/25/23 11:59
Immature Gran % 0.0 % (0-0.5) 12/25/23 11:59
Neutrophils % 5.9 % (42.2-75.2) L 12/25/23 11:59
Lymphocytes % 89.9 % (20.5-51.1) H 12/25/23 11:59
Monocytes % 2.4 % (1.7-9.3) 12/25/23 11:59
Eosinophils % 1.5 % (0-6) 12/25/23 11:59
Basophils % 0.3 % (0-2) 12/25/23 11:59
Creatinine 1.2 mg/dL (0.6-1.0) H 12/26/23 06:15
Vital Signs
Vital Signs
Temp Pulse Resp BP Pulse Ox
100.8 F H 107 28 94/71 98
12/26/23 06:38 12/26/23 06:10 12/26/23 06:10 12/26/23 06:00 12/26/23 04:45
[2023-12-26 08:53] LABS: Band Neutrophils 8 % (0-3); Lymphocytes 34 % (20-51); Monocytes 10 % (2-9); Segmented Neutrophils 32 % (42-75)
[2023-12-26 08:54] LABS: Atypical Lymphocytes 12 %; Myelocytes 4 % (-); Platelets Checked Yes
[2023-12-26 08:55] LABS: Normal RBC Morphology Yes
[2023-12-26] MEDS: NOVOLOG FLEXPEN-LOW RESISTANCE 3 UNITS SC ×3 (08:55→18:28)
[2023-12-26 08:57] LABS: Absolute Neutrophils -Man Diff 0.3 10^3/uL (1.4-6.5)
[2023-12-26 08:57] LABS: Albumin 3.1 g/dl (3.5-5.0); Blood Urea Nitrogen 48 mg/dl (7-17); Carbon Dioxide 12 mmol/L (22-30); Chloride 110 mmol/L (98-107); Estimated Creatinine Clearance 31 ml/min; Glucose 251 mg/dl (70-99); Phosphorus 3.4 mg/dl (2.5-4.5); Potassium 4.8 mmol/L (3.5-5.1); Sodium 139 mmol/L (135-145); eGFR 44.91
--- NOTE | 2023-12-26 09:01 | W.PN.HOSP.TC ---
Addendum entered and electronically signed by Salvador Layton MD 12/26/23 21:27:
Attending Addendum-I saw and evaluated the patient. I reviewed the resident�s note and agree with findings and plan as documented in the resident�s note. Sub: Complains of diarrhea. Per nursing heme neg. Dark stool. Feel weak. Febrile this am. Full
12 point ROS reviewed and negative except as documented Exam- vitals reviewed in EMR GEN-NAD heart irreg irreg tachycardic lungs decreased at bases abd soft NT LE no edema
Plan:
#Acute Hypoxemic Respiratory Failure/Severe Sepsis from PNA/Neutropenic Fever
- admit to IMU- boarding in ED
- heme onc input appreciated
- follow ANC 300
- cont cefepime and vancomycin
- lactate tredning down
- judicious fluids
- start levophed if needed to maintain map > 55
- patient prone to pulm edema
- overall guarded prognosis
- blood and urine cx-NGTD
- check Cdiff toxin neg ag pos
- Repeat labs in am
- repeat blood cx
- c/s ID as still febrile
# Rapid Afib
- improved
- cards input appreciated
- cont amiodarone gtt and metoprolol IV
- hold hep gtt due to decreased plts high risk CVA
- Eliquis on hold
- check echo 12/25 Normal left ventricular size, wall thickness and systolic function.
LV ejection fraction is 55-60%.
Mild aortic stenosis
Moderate tricuspid regurgitation
Compared to the previous report 05/09/2022 Moderate tricuspid regurgitation now
present.
# Stage 1 sacral ulcer
- POA
- wound care
# Acute on Chronic Anemia
- cbc q 12
- HOLD heparin
- heme check stool
- start IV PPI
- tx for HB < 7.5
# Diarrhea
- c diff toxin neg
- repeat c diff
- monitor closely
- contact precautions
# HOLLIE with Metabolic Acidosis
- check ABG
- appreciate nephro input
- start IVF with HCO3
- HCO3 pushes per nephro
- lactated ringers given in ED
- repeat BMP q 12
# Hyperkalemia
- repeat BMP in am
# Adrenal Insufficiency due to adenoma
- stress dose steroids wean daily
- bolus given in ED
- repeat BMP in am
- resume home dose when not septic
# Lung ca
- s/p Neulasta and chemo recently
- hemeonc on board
- no chemo while septic
- repeat labs in am
# Leukopenia/Thrombocytopenia
- worsening
- like ca and sepsis related
- repeat CBC in am
- heme onc on board
# DM-
- hold metformin
- cont SSI
# HTN-
- hold hydralazine
# HLD-
- hold atorvastatin for now
DVT- SCDs
CODE- DNR/DNI
Time spent coordinating care, review of plan of care with resident, personally reviewed records in EMR, med rec, consults, notes, labs, radiology, cards nephro heme onc d/w nursing � 65 mins
Original Note:
Today's Communication/Plan
-
Follow CBC with differential
Continue amiodarone, off heparin
Neutropenic precautions
IV bicarb pushes with continuous IV fluid with bicarb.
Follow cultures.
Assessment / Plan
Assessment / Plan
Impression: 83-year-old female with PMH of A-fib rate controlled on metoprolol, lung cancer presented to ED [facility] 12/25/2023 from [facility] unresponsive with concerns of sepsis.
Assessment:
Septic shock
A-fib with RVR
Anemia
Acute diarrhea
HOLLIE
Sacral stage I ulcer
#Septic shock:
-Most likely due to UTI vs chronic secondary adrenal insufficiency.
-S/p 3L NS.
-CXR most likely atelectasis versus pneumonia.
-Continue IV vancomycin and cefepime.
-IV hydrocortisone Q8 hours given history of adrenal insufficiency.
-If MAP is <65, start Levophed; family okay with Levophed.
-Nephrology consult.
#A-fib with RVR
-Improved with IV amiodarone
-Continue amiodarone for rate control.
-Patient on 25 mg metoprolol p.o. daily on admission, will continue with holding parameters.
-Heparin for anticoagulation on hold.
-Cardiology on board
#Acute anemia
-Hb acutely dropped to 8.8 in a.m., 9.1 on recheck.
-Unclear etiology.
-Will hold heparin
-Follow H&H.
#Acute neutropenic fever
-Tmax 104.5. WBC acutely dropped to 0.9, 0.8 on recheck.
-Rectal Tylenol.
-Continue antibiotics.
-Neutropenic precautions.
-Heme/oncology following.
-Follow fever curve.
#Acute diarrhea
-Greenish/black stool.
-C. difficile antigen positive, toxin negative.
-Salmonella/Shigella culture pending, Campylobacter culture pending, Shiga toxin text pending.
-N.p.o.
-ID consult.
-Speech/swallow evaluation
#HOLLIE
-Creatinine improved to 1.2, baseline 0.7. Overall volume status improving with IVF.
-Most likely prerenal given sepsis vs diarrhea.
-Most likely prerenal given septic shock.
-Mir in place.
-Continue IV fluid
-Consider pressors.
-Follow creatinine
#Lactic acidosis
-Worsening with diarrhea.
-Changed to IV bicarb with bicarb IV pushes.
-Initial lactic acid 7.4, 1.9 on repeat s/p 2 bolus IVF.
-Continue IV fluid.
-Follow volume status.
# Pancytopenia
-Hb acutely dropped to 9.1, platelets 36K, WBC 0.8.
-ANC 0.3
-Most likely due to recent chemotherapy/immunotherapy.
-Neutropenic precautions.
-Monitor H&H, transfuse if <7.
-Transfuse platelets if <20 K.
-Oncology following.
#Stage I sacral ulcer
-Due to decubitus pressure.
-Intermittent patient repositioning.
-Continue to monitor.
#Hx of Lung cancer.
-Follows oncology at [facility].
-Intermittent wheezes and rhonchi on examination.
-Breathing treatment as needed.
-S/p chemotherapy/immunotherapy 6 days ago per daughter.
#Essential hypertension
-Hold hydralazine, and metoprolol given septic shock.
#Adrenal insufficiency
-Stress dose steroids with 100 mg hydrocortisone IV then every 8 hours.
#Type 2 diabetes mellitus
Hold metformin.
-Start sliding scale insulin low.
#GERD
-Continue PPI
#History of CVA
-Continue statin and aspirin when able.
#DVT prophylaxis
-SCDs
Data:
Echocardiography 12/26/2023:
Normal left ventricular size, wall thickness and systolic function.
LV ejection fraction is 55-60%.
Mild aortic stenosis
Moderate tricuspid regurgitation
Compared to the previous report 05/09/2022. Moderate tricuspid regurgitation now
present. Previous study with hyperdynamic left ventricular function and
suspected mild to moderate aortic stenosis.
Anticipated Discharge: > 48 hours
Subjective/Interval History
-
Date of Service: December 26, 2023
Patient seen and examined in the room in no acute distress. She was more awake today and conversing in low tones. Denies chills, chest pain, shortness of breath, abdominal pain, or palpitations.
Objective Data
-
Labs:
Laboratory Results
12/25/23 12/26/23 12/26/23
23:28 06:15 08:14
WBC 0.9 L*
Hgb 8.8 L D
Hct 25.9 L
Plt Count 43 L D
APTT 192.9 H* 120.4 H
Sodium 138
Potassium 5.4 H D
Chloride 111 H
Carbon Dioxide 12 L*
BUN 48 H
Creatinine 1.2 H
Glucose 252 H
Calcium 7.6 L
12/26/23
08:33
WBC Cancelled
Hgb Cancelled
Hct Cancelled
Plt Count Cancelled
APTT
Sodium 139
Potassium 4.8
Chloride 110 H
Carbon Dioxide 12 L*
BUN 48 H
Creatinine 1.2 H
Glucose 251 H
Calcium 8.0 L
Vital Signs:
Vital Signs
Temp Pulse Resp BP Pulse Ox
100.8 F H 107 28 94/71 98
12/26/23 06:38 12/26/23 06:10 12/26/23 06:10 12/26/23 06:00 12/26/23 04:45
I&O
12/25/23 12/26/23 12/27/23
06:59 06:59 06:59
Output Total 700 / 700
Balance -700 / -700
Review of Systems
-
All other systems: Not reviewed unless documented
Constitutional: Reports No Symptoms
Respiratory: Reports No Symptoms
Abdomen/GI: Reports Diarrhea; Denies Abdominal Pain or Vomiting
Physical Exam
-
General: Well Developed and No Apparent Distress; Negative Respiratory Distress
HEENT: Normocephalic, Atraumatic and Moist Mucous Membranes
Respiratory: Clear to Auscultation and Rhonchi; Negative Wheezes or Crackles
Cardiac: S1/S2 and Irregular Rhythm; Negative Murmur, Rub or Gallop
GI: Soft, Nontender, Nondistended and Normal Bowel Sounds; Negative Organomegaly
Rectal: Deferred by Provider
Musculoskeletal: No Clubbing, No Cyanosis and No Edema
Skin: Negative Rash
Neuro: Awake
Psych: Calm
Data Reviewed
-
Diagnostic Radiology: Image personally visualized and interpreted, Report Reviewed by me and Discussed with Physician
Medical Tests (Nuc Med, Echo etc): Image personally visualized and interpreted and Report Reviewed by me
Labs: Labs Reviewed by me and Discussed with Physician
Old Records: Reviewed
[2023-12-26] MEDS: SODIUM BICARBONATE 1075 MEQ IV ×2 (09:05→19:37)
--- NOTE | 2023-12-26 09:22 | W.PN.NEPH.PH ---
Today's Communication / Plan
-
IV bicarb pushes and cont IVF bicarb
recheck labs later
Assessment/Plan
-
Assessment
Lung cancer status post chemotherapy
Hypotension
Metabolic acidosis
lactic acidosis
HOLLIE
Seizure disorder diabetes mellitus type 2
Adrenal insufficiency
new Afib
Plan
HOLLIE-improving with IVF
UA ?UTI sample, pending cx
worsening met acidosis and L acid normal, likely from cl based IVF and diarrhea
changed to IV bicarb per primary, will give bicarb IV pushes too
recheck labs later today
abx per primary
BP are soft on stress dose steroids
follow h/h, prn transfusion, heme follows recent chemo ,AC held
BNP is high, CXR noted PNA, clinically no hypervolemia noted
Family to try to determine goals of care
high risk encounter
d/w nursing
-
-
Date of Service: December 26, 2023
CC / HPI / ROS
-
Chief Complaint:
HOLLIE, met acidosis
History of Present Illness:
cr better at 1.2, bicarb worse at 12
L acid normal
BP soft,
worsening neurotropenia and anemia , low plt
febrile
Afib rate control on Amio
Review of Systems:
offers no pain but looks exhausted
on 2lit of O2
diarrhea per nursing, sent for c diff
non oliguric with johnson
Labs
-
Labs:
WBC Cancelled 12/26/23 08:33
RBC Cancelled 12/26/23 08:33
Hgb Cancelled 12/26/23 08:33
Hct Cancelled 12/26/23 08:33
Plt Count Cancelled 12/26/23 08:33
Sodium 139 mmol/L (135-145) 12/26/23 08:33
Potassium 4.8 mmol/L (3.5-5.1) 12/26/23 08:33
Chloride 110 mmol/L (98-107) H 12/26/23 08:33
Carbon Dioxide 12 mmol/L (22-30) L* 12/26/23 08:33
BUN 48 mg/dl (7-17) H 12/26/23 08:33
Creatinine 1.2 mg/dL (0.6-1.0) H 12/26/23 08:33
eGFR 44.91 12/26/23 08:33
Glucose 251 mg/dl (70-99) H 12/26/23 08:33
Calcium 8.0 mg/dl (8.4-10.2) L 12/26/23 08:33
Phosphorus 3.4 mg/dl (2.5-4.5) 12/26/23 08:33
Bbg-B-Hazuskaczqv Pept 5990 pg/ml 12/26/23 06:15
Albumin 3.1 g/dl (3.5-5.0) L 12/26/23 08:33
Physical Exam
-
Vital Signs:
Vital Signs
Temp Pulse Resp BP Pulse Ox
100.8 F H 107 28 94/71 98
12/26/23 06:38 12/26/23 06:10 12/26/23 06:10 12/26/23 06:00 12/26/23 04:45
Cardiovascular:: Regular rate and rhythm
Lung Excursion:: Abnormal (mild tachypnea, decreased BS)
Abdomen:: Nontender and Soft
Extremity Edema:: None: Bilateral:
Johnson Catheter: Yes
[2023-12-26 09:23] LABS: Glycohemoglobin (HgbA1c) 7.2 % (4.0-5.6); Total Cells Counted 100
--- NOTE | 2023-12-26 09:28 | PHA.VAN.IN ---
Assessment
- Assessment
Renal Function: Appears elevated from baseline (SCR 2.1-->1.2 vs ~0.7)
Concomitant Antimicrobials: cefepime
Plan
- Plan
Initial / Loading Dose: 1250mg - 12/24 12:48
Maintenance Regimen: dosing by level - give 750mg (~13 mg/kg) x1 today
Monitoring: random 12/26 0600
MRSA Screen: Ordered per protocol
Pharmacokinetics Vancomycin I
- -
Patient Age: 83
Patient Sex: Female
Vancomycin Day #: 1
Indication: Neutropenic Fever
Requesting Provider: Dr. Obando (resident)
Pertinent Antimicrobial Allergies:
NKDA
Height / Weight:
Height 5 ft 5 in
Actual Weight 55.8 kg
Pertinent Past Medical History: Recurrent lung cancer, DM
- Vital Signs / Lab Results
Temp Pulse Resp BP Pulse Ox
100.8 F H 107 28 94/71 98
12/26/23 06:38 12/26/23 06:10 12/26/23 06:10 12/26/23 06:00 12/26/23 04:45
Lab Results - Hematology
12/25/23 12/26/23 12/26/23
11:59 06:15 08:33
WBC 3.3 L 0.9 L* Cancelled
Band Neutrophils 8 H
Lab Results - Chemistry
12/25/23 12/26/23 12/26/23
11:59 06:15 08:33
BUN 48 H 48 H 48 H
Creatinine 2.1 H 1.2 H 1.2 H
Estimated Creat Clear 18 31 31
Albumin 3.4 L 3.1 L
12/25/23 12/25/23
11:59 16:20
Lactic Acid 7.4 H* 1.9
Lab Results - Urine
12/25/23
11:59
Urine Nitrite (Reflex) Negative
Leukocyte Esterase Rfl 2+ A
Urine WBC (Reflex) 11-15 A
Ur Squamous Epith Cells 16-20
Urine Bacteria (Reflex) Moderate A
Microbiology Results
12/25/23 11:59 Influenza Types A & B (JASE) - Final
Nasal Swab Negative for Influenza A & B, NAAT
Negative results must be combined with clinical observations
and patient history.
Nucleic Acid Amplification test (NAAT)performed on the
[facility] [employer] platform.
[2023-12-26] MEDS: MAXIPIME 2000 MG IV ×2 (09:42→21:06)
[2023-12-26] MEDS: SODIUM BICARBONATE 50 MEQ IV ×2 (09:42→14:58)
[2023-12-26] MEDS: STERILE WATER FOR INJECTION 10 ML IV ×2 (09:43→21:05)
[2023-12-26 09:49] LABS: Hematocrit 26.3 % (37.0-47.0); Hemoglobin 9.1 g/dL (12.0-16.0); Mean Corp Hgb Conc. 34.6 g/dL (33.0-37.0); Mean Corpuscular Hgb 30.8 pg (27.0-31.0); Mean Corpuscular Volume 89.2 fL (81.0-99.0); Mean Platelet Volume 10.8 fL (7.4-10.4); Platelet Count 36 10^3/uL (130-400); Red Blood Cell Count 2.95 10^6/uL (4.20-5.40); Red Cell Dist. Width 13.9 % (11.5-14.5); White Blood Cell Count 0.8 10^3/uL (4.8-10.8)
[2023-12-26] MEDS: VANCOCIN 150 IV (10:57)
[2023-12-26 12:43] LABS: Glucose - Point of Care 271 mg/dl (70-99)
--- NOTE | 2023-12-26 14:32 | PN.CDI ---
CDI
- -
CDI:
Physician Documentation Request
Admit Date: 12/25/23 15:33
Dear Doctor,
Please review the following and provide your response in the progress notes.
Clinical Indicators:
- RN skin assessment indicates Stage 1 sacrum pressure injury, POA
Physician documentation of the type and location of wounds is required for compliant documentation. Based on the above clinical findings and your assessment, please provide the following in your progress note:
1. Location of the ulcer/wound, including laterality.
2. Type (etiology) of ulcer/wound:
- Diabetic ulcer
- Arterial (ischemic) ulcer
- Traumatic wound
- Venous stasis ulcer
- Pressure (decubitus) ulcer
- Non-healing surgical wound
- Other
- Unable to determine
Use of terms such as suspected, likely, concern for, or probable (associated with a specific diagnosis that is being evaluated, monitored, or treated as if it exists) are acceptable and can be coded in the inpatient setting, when documented at the
time of discharge.
Thank you,
Ponce Kate RN
CDI Specialist
Please use your independent medical judgment in providing your response.
*Source: National Pressure Ulcer Advisory Panel (NPUAP)
[2023-12-26 16:46] LABS: B.E. -2.7 mmol/L; HCO3 20.6 mmol/L (21-28); PCO2 29 mmHg (32-35); PO2 124 mmHg (83-108); pH 7.46 (7.35-7.45)
[2023-12-26 16:57] LABS: O2 Therapy %Oxygen/Room Air 98
[2023-12-26] MEDS: CORDARONE 518 MG IV (17:43)
--- NOTE | 2023-12-26 17:54 | PTCARENOTE ---
Pt received from ED. Amio and IVF infusing. Afib on tele monitor. Coughing with oral intake, TT to Dr. Obando for NPO and speech eval orders. Family at bedside, updated on plan of care.
[2023-12-26 18:06] LABS: Glucose - Point of Care 228 mg/dl (70-99)
[2023-12-26] MEDS: TYLENOL/FEVERALL 650 MG RECTAL (18:25)
[2023-12-26 20:23] LABS: Blood Urea Nitrogen 52 mg/dl (7-17); Calcium 7.6 mg/dl (8.4-10.2); Carbon Dioxide 19 mmol/L (22-30); Estimated Creatinine Clearance 34 ml/min; Glucose 212 mg/dl (70-99); Potassium 4.2 mmol/L (3.5-5.1); eGFR 49.86
[2023-12-26 21:27] LABS: Chloride 108 mmol/L (98-107); Sodium 141 mmol/L (135-145)
[2023-12-26 22:33] LABS: Hematocrit 22.6 % (37.0-47.0)
[2023-12-26] MEDS: NOVOLOG FLEXPEN-LOW RESISTANCE 2 UNITS SC (23:59)
[2023-12-27] VITALS (15 sets, daily range): BP systolic 96–129; BP diastolic 59–85
[2023-12-27 00:09] LABS: Glucose - Point of Care 209 mg/dl (70-99)
--- NOTE | 2023-12-27 02:11 | PTCARENOTE ---
assumed care of patient. pt is AAOx3 but forgetful at times. pt able to make needs known. drowsy but easily arousable. VSS. amio gtt infusing, IV fluids infusing without issues. blood cultures porsche and other labs sent down. 1700 BMP never drawn
during day shift, labs drawn on power and recovery shift engineer. johnson intact draining yellow urine. no BM's yet for shift. care ongoing.
[2023-12-27] MEDS: SOLU-CORTEF 50 MG IV ×2 (03:55→19:45)
[2023-12-27 04:39] LABS: Hematocrit 21.7 % (37.0-47.0); Hemoglobin 7.7 g/dL (12.0-16.0); Mean Corp Hgb Conc. 35.5 g/dL (33.0-37.0); Mean Corpuscular Hgb 30.1 pg (27.0-31.0); Mean Corpuscular Volume 84.8 fL (81.0-99.0); Mean Platelet Volume 11.1 fL (7.4-10.4); Platelet Count 28 10^3/uL (130-400); Red Blood Cell Count 2.56 10^6/uL (4.20-5.40); Red Cell Dist. Width 13.9 % (11.5-14.5); White Blood Cell Count 1.3 10^3/uL (4.8-10.8)
[2023-12-27 04:47] LABS: Vancomycin Random 10.3 ug/ml
[2023-12-27 05:01] LABS: Blood Urea Nitrogen 55 mg/dl (7-17); Calcium 7.7 mg/dl (8.4-10.2); Carbon Dioxide 19 mmol/L (22-30); Chloride 108 mmol/L (98-107); Estimated Creatinine Clearance 34 ml/min; Glucose 198 mg/dl (70-99); Potassium 4.2 mmol/L (3.5-5.1); Sodium 142 mmol/L (135-145); eGFR 49.86
[2023-12-27] MEDS: LOPRESSOR 5 MG IV ×4 (05:08→23:24)
[2023-12-27] MEDS: NOVOLOG FLEXPEN-LOW RESISTANCE 2 UNITS SC ×3 (05:09→23:24)
[2023-12-27 05:18] LABS: Glucose - Point of Care 211 mg/dl (70-99)
--- NOTE | 2023-12-27 05:36 | PTCARENOTE ---
pt had IV amiodarone gtt infusing for 24 hours- 12/25 1830. notified IV team about IV access and site. IV team aware and will pass along this morning.
--- NOTE | 2023-12-27 05:47 | PTCARENOTE ---
this AM pt platelet count critically low-28, no signs of bleeding, no BM's this shift. notified covering OUTBOARD TECHNICIAN, repeat CBC ordered for 0800, type and screen ordered, sent down to lab.
--- NOTE | 2023-12-27 06:36 | W.PN.ONC2 ---
Today's Communication / Plan
-
Cont Abx. So far cultures neg.
Impression
Impression
febrile neutropenia
cough, hypoxia, possible PNA on CXR
recurrent lung cancer, recent chemo (first dose) with GCSF at [place]
black stool
pancytopenia, from chemo
rapid afib
Plan
Plan
broad spectrum antibiotics (cefepime, Vanco)
stress dose steroids (on hydrocortisone as outpatient)
follow cultures, fever curve
heme testing of stool, transfuse as clinically indicated
no role for GCSF - got neulasta on 12/20
hold heparin w/ platelets < 50 and suspicion for GI bleeding w/ black stool
DNR
Subjective/Objective
Chief Complaint
ACS Heme Onc F/U
Subjective
Thirsty. Asking for a drink (she's NPO from an aspiration risk - speech path following). Garbled speech as dentures out.
Vital Signs:
Vital Signs
Temp Pulse Resp BP Pulse Ox
98.8 F 84 27 115/73 98
12/27/23 03:28 12/27/23 06:00 12/27/23 06:00 12/27/23 06:00 12/27/23 06:00
Lab Results:
Laboratory Data
WBC 1.3 10^3/uL (4.8-10.8) L* 12/27/23 04:17
Hgb 7.7 g/dL (12.0-16.0) L 12/27/23 04:17
Plt Count 28 10^3/uL (130-400) L* D 12/27/23 04:17
APTT 120.4 Sec (23.4-35.0) H 12/26/23 08:14
eGFR 49.86 12/27/23 04:17
Physical Exam
Cardiology: S1 and S2
Pulmonary: Clear
GI: Soft
[2023-12-27] MEDS: SODIUM BICARBONATE 1075 MEQ IV ×2 (07:44→19:27)
[2023-12-27] MEDS: PROTONIX IV 40 MG IV (07:45)
[2023-12-27] MEDS: NSS (PRESERVATIVE FREE) 10 ML IV (07:45)
[2023-12-27] MEDS: DESENEX/MITRAZOL/ZEASORB 1 APPLIC TOPICAL ×2 (08:00→19:45)
--- NOTE | 2023-12-27 08:06 | W.PN.HOSP.TC ---
Addendum entered and electronically signed by Salvador Layton MD 12/27/23 22:12:
Attending Addendum-I saw and evaluated the patient. I reviewed the resident�s note and agree with findings and plan as documented in the resident�s note. Sub: No further diarrhea. Per nursing coughing with PO intake. Febrile this am. Full 12 point
ROS reviewed and negative except as documented Exam- vitals reviewed in EMR GEN-NAD heart irreg irreg tachycardic lungs decreased at bases abd soft NT LE no edema
Plan:
#Acute Hypoxemic Respiratory Failure/Severe Sepsis from PNA/Neutropenic Fever
- continue care in IMU
- still febrile
- heme onc input appreciated
- follow ANC 300->1.1
- ID input appreciated
- cont cefepime day # 3 DC vancomycin per ID
- lactate trended down
- start Levophed if needed to maintain map > 55
- overall guarded prognosis
- blood cx pos- GP cocci in clusters 12/24- await sens
- blood cx 12/25- pend
- urine cx-NGTD
- check Cdiff toxin neg ag pos
- Repeat labs in am
# Rapid Afib
- improved
- cards input appreciated
- cont amiodarone gtt and metoprolol IV
- hold hep gtt due to decreased plts (26k) but high risk CVA
- Eliquis on hold
- check echo 12/25 Normal left ventricular size, wall thickness and systolic function.
LV ejection fraction is 55-60%.
Mild aortic stenosis
Moderate tricuspid regurgitation
Compared to the previous report 05/09/2022 Moderate tricuspid regurgitation now
present.
# Stage 1 sacral ulcer
- POA
- wound care
- source of sepsis?
# Acute on Chronic Anemia
- HOLD heparin
- heme check stool-neg
- cont IV PPI
- tx for HB < 7
- repeat CBC stable @ 8
# Diarrhea
- resolved
- c diff toxin neg
# HOLLIE / Metabolic Acidosis
- improved
- ABG - primary respiratory alkalosis with both NG and AG acidosis- compensatory
- appreciate nephro input
- cont IVF with HCO3
- repeat BMP daily
# Severe Dysphagia
- speech on board
- VFSS- 12/26- severe aspiration
- NPO- d/w family no feeding tube
- place PICC line 12/26
# Hyperkalemia
- resolved with bicarb
- repeat BMP in am
# Adrenal Insufficiency due to adenoma
- stress dose steroids wean daily
- bolus given in ED
- repeat BMP in am
- resume home dose when not septic
# Lung ca
- s/p Neulasta 12/20 and chemo recently
- hemeonc on board
- no chemo while septic
- repeat labs in am
# Leukopenia/Thrombocytopenia
- worsening plt count with improved leukopenia
- like ca chemo and sepsis related
- repeat CBC in am
- heme onc on board
# DM-
- hold metformin
- cont SSI
# HTN-
- hold hydralazine
# HLD-
- hold atorvastatin for now
DVT- SCDs
CODE- DNR/DNI
Time spent coordinating care, review of plan of care with resident, personally reviewed records in EMR, med rec, consults, notes, labs, radiology, cards nephro heme onc d/w nursing and family � 60 mins
Original Note:
Today's Communication/Plan
-
N.p.o.
PICC line
Video swallow today
Follow creatinine
Continue antibiotics
Follow CBC
Hold heparin
Assessment / Plan
Assessment / Plan
Impression: 83-year-old female with PMH of A-fib rate controlled on metoprolol, lung cancer presented to ED on 12/25/2023 from [facility] unresponsive with concerns of sepsis.
Assessment:
Septic shock
A-fib with RVR
Pneumonia
Acute diarrhea
HOLLIE
Acute cough
Sacral stage I ulcer
#Septic shock:
-Volume status much improved
-Most likely due to UTI vs chronic secondary adrenal insufficiency.
-S/p 3L NS.
-IV hydrocortisone reduced to Q12 hours for history of adrenal insufficiency.
-If MAP is <65 or SBP <90, start Levophed; family okay with Levophed.
-Nephrology following.
#A-fib with RVR
-Improved with IV amiodarone
-Continue amiodarone for rate control.
-Patient on 25 mg metoprolol p.o. daily on admission, will continue with holding parameters.
-Heparin for anticoagulation on hold.
-Cardiology on board
#Pneumonia
-Most likely community-acquired vs aspiration.
-Repeat CXR 12/27/2023 with right perihilar pneumonia.
-Continue IV vancomycin and cefepime.
#Acute neutropenic fever
-Fever resolved.
-Tmax 101.2 in the past 24h.
-WBC acutely dropped to 0.9 12/26, now 1.6.
-Rectal Tylenol.
-Continue antibiotics.
-Neutropenic precautions.
-Heme/oncology following.
-Follow fever curve.
#Acute diarrhea
-Greenish/black stool negative for blood.
-C. difficile antigen positive, toxin negative.
-Salmonella/Shigella culture pending, Campylobacter culture pending, Shiga toxin text pending.
-ID following.
#Acute cough
-Most likely due to aspiration given CXR reports 12/27/2023.
-Failed video swallow eval.
-N.p.o.
-PICC line
-Speech recs appreciated.
-Spoke to patient's daughter Destiny, who reaffirmed that she and her brother would not want my mom to be on feeding tube. She stated that she would with and see if patient turns the corner in 2 days with repeat video swallow.
#HOLLIE
-Creatinine stable at 1.1, baseline 0.7. Overall volume status improving with IVF.
-Most likely prerenal given sepsis vs diarrhea.
-Mir in place.
-Continue IV fluid
-Follow creatinine
#Lactic acidosis
-improving with 1/4 NS with Bicarb .
-Changed to IV bicarb with bicarb IV pushes 12/26/2023.
-Initial lactic acid 7.4, 1.9 on repeat s/p 2 bolus IVF.
-Continue IV fluid with bicarb, may switch to NSS tomorrow
-Follow volume status.
# Pancytopenia
-Hb stable at 8.0, platelets dropped to 26K (was 36 yesterday), WBC count improved to 1.6 (was 1.3 yesterday).
-ANC 1.1
-Most likely due to recent chemotherapy/immunotherapy.
-Neutropenic precautions.
-Monitor CBC, transfuse if <7.
-Hold heparin.
-Transfuse platelets if <20 K.
-Oncology following.
#Stage I sacral ulcer
-Due to decubitus pressure.
-Intermittent patient repositioning.
-PT/OT
-Continue to monitor.
#Hx of Lung cancer.
-Follows oncology at [facility].
-Intermittent wheezes and rhonchi on examination.
-Breathing treatment as needed.
-S/p chemotherapy/immunotherapy 6 days ago per daughter.
#Essential hypertension
-Hold hydralazine, and metoprolol given septic shock.
#Adrenal insufficiency
-Stress dose steroids with 100 mg hydrocortisone IV then every 8 hours.
#Type 2 diabetes mellitus
Hold metformin.
-Start sliding scale insulin low.
#GERD
-Continue PPI
#History of CVA
-Continue statin and aspirin when able.
#DVT prophylaxis
-SCDs
Data:
Echocardiography 12/26/2023:
Normal left ventricular size, wall thickness and systolic function.
LV ejection fraction is 55-60%.
Mild aortic stenosis
Moderate tricuspid regurgitation
Compared to the previous report 05/09/2022. Moderate tricuspid regurgitation now
present. Previous study with hyperdynamic left ventricular function and
suspected mild to moderate aortic stenosis.
CXR 12/27/2023:
Mild right perihilar pneumonia, not significantly changed when compared with the prior study
Anticipated Discharge: > 48 hours
Subjective/Interval History
-
Date of Service: December 27, 2023
Patient was seen and examined in the room with her granddaughter by bedside, comfortably lying on her bed in no acute cardiopulmonary distress. Her only complaint was that 'I want to drink water'. She appears more alert today and having
appropriate conversations.
Overnight, there was no acute events reported. Patient was seen this morning by speech classified ad taker and had cough with puree 5+ trials but not with liquids. Speech recommended trial of puree 4 diet and video swallow. Patient was able to take
oral amiodarone but had mild cough with swallowing the pill. She however failed the video swallow test and it was recommended to place her on strict n.p.o. for further notice. Her INR was 1.5 and a PICC line was ordered for medications.
Her family has initially indicated that they do not want any form of medical ventilation or artificial feeding. She remains DNR/DNI. She denies chest pain, shortness of breath, palpitations, fever, chills, abdominal pain.
Objective Data
-
Labs:
Laboratory Results
12/26/23 12/26/23 12/27/23
19:43 22:24 04:17
WBC 1.3 L*
Hgb 8.0 L 7.7 L
Hct 22.6 L 21.7 L
Plt Count 28 L* D
Sodium 141 142
Potassium 4.2 4.2
Chloride 108 H 108 H
Carbon Dioxide 19 L 19 L
BUN 52 H 55 H
Creatinine 1.1 H 1.1 H
Glucose 212 H 198 H
Calcium 7.6 L 7.7 L
12/27/23
08:00
WBC Pending
Hgb Pending
Hct Pending
Plt Count Pending
Sodium
Potassium
Chloride
Carbon Dioxide
BUN
Creatinine
Glucose
Calcium
Vital Signs:
Vital Signs
Temp Pulse Resp BP Pulse Ox
98.8 F 84 27 115/73 98
12/27/23 03:28 12/27/23 06:00 12/27/23 06:00 12/27/23 06:00 12/27/23 06:00
I&O
12/26/23 12/27/23 12/28/23
06:59 06:59 06:59
Output Total 700 / 700
Balance -700 / -700
Review of Systems
-
History Source: Patient
All other systems: Not reviewed unless documented
Constitutional: Reports No Symptoms
Respiratory: Reports Cough and Wheezing
Cardiac: Reports No Symptoms; Denies Chest Pain or Palpitations
Abdomen/GI: Reports Diarrhea; Denies Abdominal Pain or Vomiting
Musculoskeletal: Reports No Symptoms
Neuro: Reports No Symptoms; Denies Headache or Numbness
Hematologic / Lymphatic: Reports No Symptoms
Physical Exam
-
General: Well Developed and No Apparent Distress; Negative Respiratory Distress
HEENT: Normocephalic, Atraumatic and Moist Mucous Membranes
Respiratory: Wheezes, Rhonchi and Non Labored Respirations; Negative Crackles
Cardiac: S1/S2 and Irregular Rhythm; Negative Murmur, Rub or Gallop
GI: Soft, Nontender, Nondistended and Normal Bowel Sounds; Negative Organomegaly
Rectal: Deferred by Provider
Musculoskeletal: No Clubbing, No Cyanosis and No Edema
Skin: Negative Rash
Neuro: Awake, Alert and AO x 3
Psych: Calm
Data Reviewed
-
Diagnostic Radiology: Image personally visualized and interpreted, Report Reviewed by me and Discussed with Physician
Medical Tests (Nuc Med, Echo etc): Image personally visualized and interpreted and Report Reviewed by me
Labs: Labs Reviewed by me and Discussed with Physician
Old Records: Reviewed
--- NOTE | 2023-12-27 08:53 | PHA.VAN.FU ---
Vancomycin Assessment / Plan
- Assessment
Renal Function: Stable
Concomitant Antimicrobials: cefepime
- Assessment - Therapeutic Drug Monitoring
Random Level: 10.3 - drawn ~17H after previous dose of 750mg
- Dosing Plan
Dosing by Level: Re-dose today (Vanc 750mg)
- Monitoring Plan
Random Level: 12/27 06
- Follow Up
Pharmacy will continue to follow.
Vancomycin Follow UP
- -
Patient Age: 83
Patient Sex: Female
Vancomycin Day #: 2
Indication: Neutropenic Fever
Requesting Provider: Dr. Obando (resident)
Pertinent Antimicrobial Allergies:
NKDA
Height / Weight:
Height 5 ft 5 in
Actual Weight 55.8 kg
Pertinent Past Medical History: Recurrent lung cancer, DM
- Vital Signs / Lab Results
Temp Pulse Resp BP Pulse Ox
98.8 F 84 27 115/73 98
12/27/23 03:28 12/27/23 06:00 12/27/23 06:00 12/27/23 06:00 12/27/23 06:00
Lab Results - Hematology
12/25/23 12/26/23 12/26/23
11:59 06:15 08:33
WBC 3.3 L 0.9 L* 0.8 L*
Band Neutrophils 8 H
12/27/23
04:17
WBC 1.3 L*
Band Neutrophils
Lab Results - Chemistry
12/25/23 12/26/23 12/26/23
11:59 06:15 08:33
BUN 48 H 48 H 48 H
Creatinine 2.1 H 1.2 H 1.2 H
Estimated Creat Clear 18 31 31
Albumin 3.4 L 3.1 L
12/26/23 12/26/23 12/26/23
11:25 19:43 23:25
BUN Cancelled 52 H Cancelled
Creatinine Cancelled 1.1 H Cancelled
Estimated Creat Clear Cancelled 34 Cancelled
Albumin
12/27/23
04:17
BUN 55 H
Creatinine 1.1 H
Estimated Creat Clear 34
Albumin
12/25/23 12/25/23
11:59 16:20
Lactic Acid 7.4 H* 1.9
Microbiology Results
12/25/23 11:59 Blood Culture - Preliminary
Blood/Venous Positive culture in progress
Gram Stain - Preliminary
12/26/23 09:46 Nasal Screen MRSA (PCR) - Final
Nose MRSA not detected - performed by PCR methodology.
12/25/23 11:59 Urine Culture - Final
Urine
12/26/23 09:03 C. difficile GDH Antigen & Toxins - Final
Feces/Stool C. difficile antigen positive, toxin negative.
Clostridium difficile present, but toxin not detected.
Patient may be a carrier, colonized with nontoxinogenic
strain or the level of toxin in sample is below detection
limits. This information should be used in conjunction with
the patient's clinical history.
12/25/23 11:59 Influenza Types A & B (JASE) - Final
Nasal Swab Negative for Influenza A & B, NAAT
Negative results must be combined with clinical observations
and patient history.
Nucleic Acid Amplification test (NAAT)performed on the
[employer] platform.
Therapeutic Drug Monitoring
Random Vancomycin 10.3 ug/ml 12/27/23 04:17
[2023-12-27 09:07] LABS: % Basophils 1.2 % (0-2); % Immature Granulocytes 1.3 % (0-0.5); % Monocytes 6.1 % (1.7-9.3); % Neutrophils 64.7 % (42.2-75.2); Absolute Lymphocytes 0.5 10^3/uL (1.2-3.4); Absolute Monocytes 0.1 10^3/uL (0.1-0.6); Absolute Neutrophils 1.1 10^3/uL (1.4-6.5); Hematocrit 23.1 % (37.0-47.0); Mean Corp Hgb Conc. 34.6 g/dL (33.0-37.0); Mean Corpuscular Hgb 29.5 pg (27.0-31.0); Mean Corpuscular Volume 85.1 fL (81.0-99.0); Mean Platelet Volume 10.7 fL (7.4-10.4); Nucleated Red Blood Cells % 0 %; Platelet Count 26 10^3/uL (130-400); Red Blood Cell Count 2.75 10^6/uL (4.20-5.40); Red Cell Dist. Width 13.9 % (11.5-14.5); White Blood Cell Count 1.6 10^3/uL (4.8-10.8)
[2023-12-27 09:19] LABS: % Lymphocytes 42.1 % (20.5-51.1); % Monocytes 7.9 % (1.7-9.3); % Neutrophils 47.6 % (42.2-75.2)
[2023-12-27 09:20] LABS: % Basophils 0.8 % (0-2); % Immature Granulocytes 1.6 % (0-0.5); Absolute Lymphocytes 0.5 10^3/uL (1.2-3.4); Absolute Monocytes 0.1 10^3/uL (0.1-0.6); Nucleated Red Blood Cells % 0 %
[2023-12-27 09:21] LABS: Absolute Neutrophils 0.6 10^3/uL (1.4-6.5)
--- NOTE | 2023-12-27 09:35 | W.PN.CD ---
Today's Communication / Plan
-
Switch amiodarone to p.o.
Hold anticoagulation for thrombocytopenia
Impression / Plan
-
83-year-old female with dementia, seizures, paroxysmal atrial fibrillation (on apixaban), mild aortic stenosis, hypertension, diabetes, NIDDM, prior CVA, GERD, anemia, adrenal carcinoma with adrenal insufficiency, and prior lung cancer who
presented to the emergency department with a chief complaint of hypoxia. She has associated fever. She was found to be in atrial fibrillation with rapid ventricular response.
Atrial fibrillation with rapid ventricular response
-Rate control improved on IV amiodarone. Will switch to p.o. given that she can now tolerate a diet
-Anticoagulation is currently on hold due to hemoglobin drop (12.3-8) and thrombocytopenia
-[id number]: score at least 7 (HTN, age 75 or more, Diabetes Mellitus, prior Stroke/TIA, female gender)
Sepsis, neutropenic fever
Acute hypoxic respiratory failure
-On admission febrile, tachycardic, HOLLIE, and lactic acidosis (7.4).
-She is negative for COVID-19 and influenza
-Antibiotics per primary team-
Anemia/thrombocytopenia
-Hold heparin IV
-Workup per primary team
Hypertension
-Holding home hydralazine and metoprolol given sepsis with hypotension
-Resume as tolerated
HOLLIE, resolved
Aortic stenosis, mild
Dyslipidemia, on atorvastatin
Subjective: Tearful that she does not remember me. Otherwise she is not complaining of any pain. No alarms on telemetry. Rhythm is atrial fibrillation with heart rate in the 90s-100s.
Physical Exam
Vital Signs/Labs
Vital Signs
Temp Pulse Resp BP Pulse Ox
98.8 F 84 27 115/73 98
12/27/23 03:28 12/27/23 06:00 12/27/23 06:00 12/27/23 06:00 12/27/23 06:00
12/26/23 12/27/23 12/28/23
06:59 06:59 06:59
Actual Weight 55.8 kg
12/27/23 08:11
12/27/23 04:17
APTT 120.4 Sec (23.4-35.0) H 12/26/23 08:14
12/26/23
06:15
Ibn-Y-Eggvxfwghca Pept 5990
Physical Exam
Constitutional: No acute distress and Comfortable
Cardiovascular: Pedal edema is absent, JVD pressure is normal, Rhythm/rate is irregular and Murmur/rub/gallop absent
Respiratory: Respiratory effort normal and Lungs clear to auscul.
Data Reviewed
-
Date of Service: December 27, 2023
Medical Decision Making: Reviewed Test Results, Independent Historian Assessment, Test Interpretation and Review of Case with other Provider
EKG: Tracing Personally Visualized and interpreted
Echo: Report Reviewed by me
Labs: Labs Reviewed by me
Total Time Spent with Patient (in minutes): 35
--- NOTE | 2023-12-27 09:59 | PTCARENOTE ---
Assumed care for patient during the day. Pt is AAOx3 confused at times. Pt is calling out for water. She remains NPO for the morning. Speech pathology in to evaluate her and cleared her for a pureed diet with thins and supervision. She is in A-fib
on tele. Amiodarone gtt see MAY. With swallowing status, reached out to Dr. Chirinos about route for the amio. Critical WBC lab values, notified Dr. Obando via TT. Pt turned and readjusted. Denture and oral care done. Call mulligan is within reach.
--- NOTE | 2023-12-27 10:10 | PTOTSP ---
Dysphagia Evaluation
Patient with signs concerning for acute oral/pharyngeal dysphagia, dysphagia risk factors (i.e., AMS while admitted with septic shock and AHRF; baseline dementia, lung CA, prior CVA, GERD), and risk factors for aspiration complications
(immunocompromised).
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 CXR with possible L PNA. Objective assessment warranted via video swallow study.
Recommend:
1. Cautious L4 puree, L0 thin liquid diet
2. Medications as best tolerated
3. 1:1 supervision/assistance
4. Small single sips/bites, slow rate, reflux precautions, D/C diet if worsened signs of dysphagia/aspiration
5. Video swallow study
--- NOTE | 2023-12-27 10:38 | W.PN.NEPH.PH ---
Today's Communication / Plan
-
Maintain alkaline IV fluids
Assessment/Plan
-
Assessment
Lung cancer status post chemotherapy
Hypotension
Metabolic acidosis
lactic acidosis
HOLLIE
Seizure disorder diabetes mellitus type 2
Adrenal insufficiency
new Afib
Plan
HOLLIE-improving with IVF
Creatinine of 1.1
Metabolic acidosis persist but improved with bicarbonate IVFs
UA ?UTI sample, pending cx
worsening met acidosis and L acid normal, likely from cl based IVF and diarrhea
abx per primary
BP are soft on stress dose steroids
follow h/h, prn transfusion, heme follows recent chemo ,AC held
BNP is high, CXR noted PNA, clinically no hypervolemia noted
Family to try to determine goals of care
d/w nursing
-
-
Date of Service: December 27, 2023
CC / HPI / ROS
-
Chief Complaint:
HOLLIE, met acidosis
History of Present Illness:
cr better at 1.1, bicarb improved to 19
Lactic acid normal
BP soft,
worsening neurotropenia and anemia , low plt
febrile
Afib rate control on Amio
Review of Systems:
on 2lit of O2
diarrhea per nursing, sent for c diff
non oliguric with johnson
Labs
-
Labs:
WBC 1.6 10^3/uL (4.8-10.8) L* 12/27/23 08:11
RBC 2.75 10^6/uL (4.20-5.40) L 12/27/23 08:11
Hgb 8.0 g/dL (12.0-16.0) L 12/27/23 08:11
Hct 23.1 % (37.0-47.0) L 12/27/23 08:11
Plt Count 26 10^3/uL (130-400) L* 12/27/23 08:11
Sodium 142 mmol/L (135-145) 12/27/23 04:17
Potassium 4.2 mmol/L (3.5-5.1) 12/27/23 04:17
Chloride 108 mmol/L (98-107) H 12/27/23 04:17
Carbon Dioxide 19 mmol/L (22-30) L 12/27/23 04:17
BUN 55 mg/dl (7-17) H 12/27/23 04:17
Creatinine 1.1 mg/dL (0.6-1.0) H 12/27/23 04:17
eGFR 49.86 12/27/23 04:17
Glucose 198 mg/dl (70-99) H 12/27/23 04:17
Calcium 7.7 mg/dl (8.4-10.2) L 12/27/23 04:17
Phosphorus 3.4 mg/dl (2.5-4.5) 12/26/23 08:33
Tfw-T-Yxjgkhznasv Pept 5990 pg/ml 12/26/23 06:15
Albumin 3.1 g/dl (3.5-5.0) L 12/26/23 08:33
Physical Exam
-
Vital Signs:
Vital Signs
Temp Pulse Resp BP Pulse Ox
98.8 F 96 27 108/77 98
12/27/23 03:28 12/27/23 10:00 12/27/23 10:00 12/27/23 10:00 12/27/23 10:00
Cardiovascular:: Regular rate and rhythm
Lung Excursion:: Abnormal (mild tachypnea, decreased BS)
Abdomen:: Nontender and Soft
Extremity Edema:: None: Bilateral:
Johnson Catheter: Yes
[2023-12-27] MEDS: MAXIPIME 2000 MG IV ×2 (10:59→21:17)
[2023-12-27] MEDS: PACERONE 400 MG PO (10:59)
[2023-12-27] MEDS: STERILE WATER FOR INJECTION 10 ML IV ×2 (11:00→21:17)
[2023-12-27] MEDS: VANCOCIN 150 IV (11:22)
--- NOTE | 2023-12-27 11:34 | PTCARENOTE ---
Order to switch amiodarone to PO. Amiodarone stopped. Given PO dose with small sip of water. Pt to go to chest x-ray and video swallow study.
--- NOTE | 2023-12-27 11:53 | PTCARENOTE ---
Pt transported to x-ray and then video swallow study. Pull-over to stretcher.
--- NOTE | 2023-12-27 12:10 | PTOTSP ---
Speech Language Pathology
VIDEOFLUOROSCOPIC SWALLOWING EXAMINATION (VSE) completed. Overall, pt with mild oral and mod-severe pharyngeal dysphagia. Significant pharyngeal residue with aspiration of all textures. Also suspect component of esophageal dysphagia with backflow
from PES into pyriform sinuses with puree, increasing risk of aspiration.
Recommend:
(1) Strict NPO
(2) Oral care 4x/day with suctioning as needed
(3) Non-oral meds
(4) Allow sips of thin water sparingly post oral care given supervision per Aspiration Risk Hydration Protocol (ARHP)
(5) ELECTRIC MOTORS SALESPERSON to continue to follow
--- NOTE | 2023-12-27 13:07 | CM ---
Patient from [facility] with Hx lung CA w recent chemo & Neulasta with Dx sepsis from pneumonia/neutropenic fever, rapid Afib, anemia, thrombocytopena, diarrhea. O2 2L. Receiving IV Abx, IV Steroids, IVF w bicarb. St - dysphagia. VSE
today. Per nurse; confused/forgetful at times, will restart IV Amio as failed VSE - will be kept NPO, IV Levophed never started.
Met with patient who was alert and able to say hello.
Spoke with Derrell, Nurse Goggles Assembler [facility]; the patient resides there in LTC and is on a bed hold. She is normally A/O x3, assisted with ADLs, assisted OOB w/c, able to ambulate with RW, receiving restorative ambulation with nursing (no
PT/OT), able to feed self. Has contact with daughter. She received chemo 12/18 followed by Neulasta 12/19 and on 12/21 she declined and was started on O2. The phone for nurse report [phone], fax [phone].
Plan continue to follow for d/c needs.
Plan contact daughter prior to d/c back to SNF.
Plan return to [facility] when medically ready.
[2023-12-27 13:18] LABS: INR 1.51; PT 18.3 Sec (11.4-14.6)
[2023-12-27 13:29] LABS: Glucose - Point of Care 229 mg/dl (70-99)
--- NOTE | 2023-12-27 14:46 | PTCARENOTE ---
Caring for this pt with orientee- Pt for INR and PICC placement if Amio must continue IV. Per Dr. Obando, pt is for VSE and to hold on PICC until VSE results. Failed VSE, INR drawn and sent. IVT to bedside to place PICC. Amio infusion to be started
after line placement and XR confirmation.
--- NOTE | 2023-12-27 15:26 | PTCARENOTE ---
Pt returned from video swallow see speech pathology note. Pt is strict NPO. Pt to go back on amiodarone gtt. Order to place a PICC. VAT bedside.
--- NOTE | 2023-12-27 15:50 | CON.ID ---
Consultation
-
Date/Time Consultation Requested: 12/26/2023 1941
Date/Time Consultation Performed: 12/27/2023 1530
Requesting Provider: Dr. Hawkins
Performing Provider: Dr. Shaikh
Reason for Consultation: Febrile neutropenia
Chief Complaint / Past History
History of Present Illness
Holly Hester is an 83-year-old female being evaluated at the request of Dr. Hawkins in regards to febrile neutropenia. History is obtained from chart review, along with patient interview.
Patient has an underlying history of recurrent lung cancer and recently has been restarted on chemotherapy and immunotherapy (on 12/19/2023) and he received G-CSF on 12/21/2023. Therapy has been at [facility].
She presented to [facility] on 12/24 from [facility] via EMS after caregivers were concerned for possible sepsis. According to reviewed notes she had been feeling unwell for several days. At that time she complained of pharyngitis.
In the ER she was found to have a fever of 104.5 degrees rectally, and an ANC of 200. Antibiotics were initiated, and Infectious Diseases is asked to comment upon further antimicrobial management.
At this point in time, she denies specific complaints. She denies any headache. She denies any pharyngitis. She denies any chest pain or shortness of breath. She denies abdominal pain, nausea or vomiting.
Past History
Additional Past Medical History:
Chest pain lung cancer
DM
CVA
GERD
HTN
DM
Dementia
Additional Past Surgical History:
Cholecystectomy
Right shoulder surgery
Allergy History:
No Known Allergies Allergy (Verified 04/20/22 12:09)
Medications Reviewed: Yes
Current Antibiotics:
Cefepime 2 g IV every 12 hours
Vancomycin (dosed per pharmacy
Social History
Tobacco: Non-Smoker
Alcohol: None
Drug: None
Living: Shelter
Employment: Retired
Family History
Family History: Not Pertinent
Review of Systems
Vital Signs
Temp Pulse Resp BP Pulse Ox
99.2 F 110 27 105/77 98
12/27/23 07:40 12/27/23 15:00 12/27/23 15:00 12/27/23 14:00 12/27/23 15:08
Physical Exam
Physical Exam
Constitutional: No Acute Distress, Comfortable, Chronically Ill and Non-toxic
Eyes: Pupils Equal, Pupils Round, No Conjunctival Hemorrhage and Sclera Anicteric
Oral: No Thrush and No Ulcers
Cardiovascular: Regular Rate and S1/S2; Negative S3/S4
Pulmonary: Clear; Negative Wheezes, Rales or Rhonchi
Gastrointestinal: Soft, Non Tender and Non Distended
Genito-Urinary: Mir and Clear Urine; Negative Hematuria
Extremities: Negative Edema, Cyanosis or Erythema
Skin: Warm and Dry; Negative Rash or Jaundice
Neurological: Awake and Alert
Psychological: Calm
.
Lab / Diagnostic Study Results
12/27/23 08:11
ANC~1000
12/27/23 04:17
Abs Immat Gran (auto) 0.0 10^3/uL (0-0.05) 12/27/23 08:11
Absolute Neuts (auto) 1.1 10^3/uL (1.4-6.5) L 12/27/23 08:11
Absolute Lymphs (auto) 0.5 10^3/uL (1.2-3.4) L 12/27/23 08:11
Absolute Monos (auto) 0.1 10^3/uL (0.1-0.6) 12/27/23 08:11
Absolute Basos (auto) 0.0 10^3/uL (0-0.2) 12/27/23 08:11
Total Counted 100 12/26/23 06:15
Immature Gran % 1.3 % (0-0.5) H 12/27/23 08:11
Neutrophils % 64.7 % (42.2-75.2) 12/27/23 08:11
Lymphocytes % 28.0 % (20.5-51.1) 12/27/23 08:11
Monocytes % 6.1 % (1.7-9.3) 12/27/23 08:11
Eosinophils % 0.0 % (0-6) 12/27/23 08:11
Basophils % 1.2 % (0-2) 12/27/23 08:11
Abs Neuts (Manual) 0.3 10^3/uL (1.4-6.5) L* 12/26/23 06:15
Segmented Neutrophils 32 % (42-75) L 12/26/23 06:15
Band Neutrophils 8 % (0-3) H 12/26/23 06:15
Lymphocytes (Manual) 34 % (20-51) 12/26/23 06:15
PT 18.3 Sec (11.4-14.6) H 12/27/23 12:53
INR 1.51 12/27/23 12:53
Lactic Acid 1.9 mmol/L (0.7-2.0) 12/25/23 16:20
Ur Squamous Epith Cells 16-20 /LPF (Few) 12/25/23 11:59
Microbiology Results
Micro:
12/26/23 09:03 Salmonella/Shigella Culture - Preliminary
Feces/Stool Culture in Progress
Campylobacter Culture - Preliminary
Culture in Progress
Shiga Toxin Test - Pending
12/25/23 11:59 Blood Culture - Preliminary
Blood/Venous Positive culture in progress
Gram Stain - Preliminary
12/26/23 22:22 Blood Culture - Pending
Blood/Venous
12/26/23 22:22 Blood Culture - Pending
Blood/Venous
12/26/23 09:46 Nasal Screen MRSA (PCR) - Final
Nose MRSA not detected - performed by PCR methodology.
12/25/23 11:59 Urine Culture - Final
Urine
12/26/23 09:03 C. difficile GDH Antigen & Toxins - Final
Feces/Stool C. difficile antigen positive, toxin negative.
Clostridium difficile present, but toxin not detected.
Patient may be a carrier, colonized with nontoxinogenic
strain or the level of toxin in sample is below detection
limits. This information should be used in conjunction with
the patient's clinical history.
12/25/23 11:59 Influenza Types A & B (JASE) - Final
Nasal Swab Negative for Influenza A & B, NAAT
Negative results must be combined with clinical observations
and patient history.
Nucleic Acid Amplification test (NAAT)performed on the
[employer] platform.
Imaging:
12/27/2023 CXR (2 view): Frontal and lateral radiographs of the chest obtained. Cardiac silhouette and pulmonary vasculature radiographically within normal limits. Coarsening of the interstitial markings in the right perihilar region extending
into the upper and lower portions of the right lung suggesting interstitial pneumonia. Left side is clear.
Assessment / Plan
Febrile neutropenia
Right-sided pulmonary infiltrate; ?PNA ?CA
Lung cancer; progression of disease and recently restarted chemotherapy
DM
CVA
GERD
HTN
DM
Dementia
Recommendations:
Continue with cefepime.
MRSA nasal screen negative; can discontinue further vancomycin.
Monitor white count and temperature curve.
Follow pending blood cultures
Further recommendations as additional data is returned.
Continue with supportive measures
--- NOTE | 2023-12-27 17:24 | PTCARENOTE ---
Addendum entered by Sariah Wallace 12/27/23 19:19:
PICC adjusted, IV Amio infusion started, see worklist.
Addendum entered by Sariah Wallace 12/27/23 18:01:
Pt to IR via stretcher.
Original Note:
IVT unable to correctly position PICC. IRAD consult placed. Spoke with Dr. Chirinos regarding amio order and need for central line after 24 hours- as pt is currently rate controlled it is okay to wait for IR adjustment of PICC before starting Amio;
should pt need it sooner, a new peripheral site must be placed and infusion started until PICC is adjusted. Passed on to IVT RN. Per Dr. Obando, IR is aware of need for adjustment.
[2023-12-27 18:00] LABS: Glucose - Point of Care 175 mg/dl (70-99)
[2023-12-27] MEDS: CORDARONE 518 MG IV (19:03)
[2023-12-27] MEDS: NOVOLOG FLEXPEN-LOW RESISTANCE 1 UNITS SC (19:06)
[2023-12-27 23:34] LABS: Glucose - Point of Care 215 mg/dl (70-99)
[2023-12-28] VITALS (15 sets, daily range): BP systolic 98–125; BP diastolic 56–96
[2023-12-28] MEDS: LOPRESSOR 5 MG IV ×4 (05:04→23:29)
[2023-12-28] MEDS: NOVOLOG FLEXPEN-LOW RESISTANCE 2 UNITS SC ×4 (05:04→23:26)
[2023-12-28 05:18] LABS: Glucose - Point of Care 206 mg/dl (70-99)
[2023-12-28 06:48] LABS: Hematocrit 22.2 % (37.0-47.0); Hemoglobin 7.8 g/dL (12.0-16.0); Mean Corp Hgb Conc. 35.1 g/dL (33.0-37.0); Mean Corpuscular Hgb 30.6 pg (27.0-31.0); Mean Corpuscular Volume 87.1 fL (81.0-99.0); Mean Platelet Volume 10.2 fL (7.4-10.4); Platelet Count 26 10^3/uL (130-400); Red Blood Cell Count 2.55 10^6/uL (4.20-5.40); Red Cell Dist. Width 13.8 % (11.5-14.5); White Blood Cell Count 3.8 10^3/uL (4.8-10.8)
[2023-12-28 07:07] LABS: Vancomycin Random 10.4 ug/ml
[2023-12-28] MEDS: SODIUM BICARBONATE 1075 MEQ IV (07:30)
--- NOTE | 2023-12-28 07:46 | W.PN.HOSP.TC ---
Addendum entered and electronically signed by Salvador Layton MD 12/28/23 22:10:
Attending Addendum-I saw and evaluated the patient. I reviewed the resident�s note and agree with findings and plan as documented in the resident�s note. Sub: febrile last PM. Patient staets she is feeling better and stronger. Full 12 point ROS
reviewed and negative except as documented Exam- vitals reviewed in EMR GEN-NAD heart irreg irreg lungs crackles throughout abd soft NT LE trace edema
Plan:
#Acute Hypoxemic Respiratory Failure/Severe Sepsis from PNA/Neutropenic Fever
- transfer to tele
- not neutropenic anymore
- still febrile but fever curve trending down
- heme onc input appreciated
- follow ANC 1.1->2.9
- ID input appreciated
- cont cefepime day # 3 DC vancomycin per ID
- lactate trended down
- Levophed if needed to maintain map > 55
- overall guarded prognosis
- blood cx pos- GP cocci in clusters 12/24- poss contaminant
- blood cx 12/25- NGTD
- urine cx-NGTD
- Cdiff toxin neg ag pos
- Repeat labs in am
# Rapid Afib
- improved
- cards input appreciated
- cont amiodarone gtt and metoprolol IV as patient is NPO
- hold AC due to decreased plts (26k) but high risk CVA (chadsvasc 7)
- check echo 12/25 Normal left ventricular size, wall thickness and systolic function.
LV ejection fraction is 55-60%.
Mild aortic stenosis
Moderate tricuspid regurgitation
Compared to the previous report 05/09/2022 Moderate tricuspid regurgitation now
present.
# Stage 1 sacral ulcer
- POA
- wound care
# Acute on Chronic Anemia
- heme check stool-neg
- cont IV PPI
- tx for HB < 7
- CBC stable @ 8
# Diarrhea
- resolved
- c diff toxin neg
# HOLLIE / Metabolic Acidosis
- improved
- ABG - primary respiratory alkalosis with both NG and AG acidosis- compensatory
- appreciate nephro input
- DC IVF due to congestion
- repeat BMP daily
# Severe Dysphagia
- speech on board
- VFSS- 12/26- severe aspiration
- NPO- d/w family no feeding tube
- place PICC line 12/26
- poor prognosis
# Hyperkalemia
- resolved with bicarb
- repeat BMP in am
# Pancytopenia
- from sepsis/malignancy
- improved
- cbc with diff in am
# Adrenal Insufficiency due to adenoma
- stress dose steroids wean daily
- bolus given in ED
- repeat BMP in am
- resume home dose soon
# Lung ca
- s/p Neulasta 12/20 and chemo recently
- hemeonc on board
- no chemo while septic
- repeat labs in am
# DM-
- hold metformin
- cont SSI
# HTN-
- hold hydralazine
# HLD-
- hold atorvastatin for now
DVT- SCDs
CODE- DNR/DNI - poor prog GOC discussions underway
Time spent coordinating care, review of plan of care with resident, personally reviewed records in EMR, med rec, consults, notes, labs, radiology, cards nephro heme onc d/w nursing and family � 55 mins
Original Note:
Today's Communication/Plan
-
NPO
IV fluids changed to NSS
Monitor CBC
Continue ABX
Downgrade, keep on telemetry
Assessment / Plan
Assessment / Plan
Impression: 83-year-old female with PMH of A-fib rate controlled on metoprolol, lung cancer presented to ED on 12/25/2023 from SNF unresponsive with concerns of sepsis.
Assessment:
Septic shock
Neutropenia
Resolved
Bicytopenia
A-fib with RVR
Pneumonia
Acute diarrhea
HOLLIE
Acute cough
Sacral stage I ulcer
#Septic shock:
-Volume status much improved
-Most likely due to UTI vs chronic secondary adrenal insufficiency.
-IV hydrocortisone reduced to 50mg Q12 hours for history of adrenal insufficiency.
-If MAP is <65 or SBP <90, start Levophed; family okay with Levophed.
-Nephrology following.
#A-fib with RVR
-Improved with IV amiodarone, will continue for rate control.
-Patient on 25 mg metoprolol p.o. daily on admission, will continue with holding parameters.
-Heparin for anticoagulation on hold.
-Monitor on telemetry
-Cardiology on board
#Acute neutropenic fever
-Much improved.
-Multifactorial; Right sided PNA, Recent Chemo, Aspiration
-WBC Improved to 3.8.
-ANC 29,000
-Repeat CXR 12/27/2023 with right perihilar pneumonia.
-Continue IV cefepime, d/c further vanco per ID.
-Follow blood cxs.
-Currently afebrile, Tmax 100.4 in the past 24h.
-Rectal Tylenol since n.p.o.
-Continue antibiotics.
-Heme/oncology following.
-Follow fever curve.
#Acute diarrhea
-Greenish/black stool negative for blood.
-C. difficile antigen positive, toxin negative.
-Salmonella/Shigella culture pending, Campylobacter culture pending, Shiga toxin text pending.
-ID following.
#Acute cough
-Most likely due to aspiration given CXR reports 12/27/2023.
-Failed video swallow eval. 12/27/2023, will repeat in a.m.
-N.p.o.
-Fluoroscopically guided right arm PICC repositioning 12/26
-Speech recs appreciated.
-Spoke to patient's daughter Destiny, who reaffirmed that she and her brother would not want my mom to be on feeding tube. She stated that she would with and see if patient turns the corner in 2 days with repeat video swallow.
#HOLLIE
-Creatinine stable at 1.0, baseline 0.7. Overall volume status improving with IVF.
-Most likely prerenal given sepsis vs diarrhea.
-Mri in place.
-Continue IV fluid
-Follow creatinine
#Lactic acidosis
-Resolved
-d/c / NS with Bicarb.
-Continue NSS
-Follow volume status.
#Bicytopenia
-Hb stable down, 7.8. Platelets stable at 26K, WBC count at 3.8
-ANC 1100.
-Most likely due to recent chemotherapy/immunotherapy.
-Monitor CBC, transfuse if Hb<7.
-Hold heparin.
-Transfuse platelets if <20 K.
-Oncology following.
#Stage I sacral ulcer
-Due to decubitus pressure.
-Intermittent patient repositioning.
-PT/OT
-Continue to monitor.
#Hx of Lung cancer.
-Follows oncology at [facility].
-Intermittent wheezes and rhonchi on examination.
-Breathing treatment as needed.
-S/p chemotherapy/immunotherapy 6 days ago per daughter.
#Essential hypertension
-Hold hydralazine, and metoprolol given septic shock.
#Adrenal insufficiency
-Stress dose steroids with 100 mg hydrocortisone IV then every 8 hours.
#Type 2 diabetes mellitus
Hold metformin.
-Start sliding scale insulin low.
#GERD
-Continue PPI
#History of CVA
-Continue statin and aspirin when able.
#DVT prophylaxis
-SCDs
Data:
Echocardiography 12/26/2023:
Normal left ventricular size, wall thickness and systolic function.
LV ejection fraction is 55-60%.
Mild aortic stenosis
Moderate tricuspid regurgitation
Compared to the previous report 05/09/2022. Moderate tricuspid regurgitation now
present. Previous study with hyperdynamic left ventricular function and
suspected mild to moderate aortic stenosis.
CXR 12/27/2023:
Mild right perihilar pneumonia, not significantly changed when compared with the prior study
Anticipated Discharge: > 48 hours
Subjective/Interval History
-
Date of Service: December 28, 2023
Patient seen and examined. She was lying comfortably on her bed in no acute cardiopulmonary distress and more conversational. She reports feeling better today. She has a low-grade fever Tmax 100.4 overnight controlled on Tylenol, her blood
pressure is stable, she is still tachycardic and tachypneic. Patient has been maintained on 1 L O2 NC and saturating at 98%. Her I's and O's -925. She is currently n.p.o. due to aspiration concerns. She denies chest pain, SOB, chills, abdominal
pain.
Objective Data
-
Labs:
Laboratory Results
12/28/23
06:16
WBC 3.8 L
Hgb 7.8 L
Hct 22.2 L
Plt Count 26 L*
Sodium Pending
Potassium Pending
Chloride Pending
Carbon Dioxide Pending
BUN Pending
Creatinine Pending
Glucose Pending
Calcium Pending
Total Bilirubin Pending
AST Pending
ALT Pending
Alkaline Phosphatase Pending
Vital Signs:
Vital Signs
Temp Pulse Resp BP Pulse Ox
98.1 F 94 29 103/76 98
12/28/23 05:19 12/28/23 06:00 12/28/23 06:00 12/28/23 06:00 12/28/23 06:00
I&O
12/27/23 12/28/23 12/29/23
06:59 06:59 06:59
Output Total 450 / 450
Balance -450 / -450
Review of Systems
-
History Source: Patient
All other systems: Not reviewed unless documented
Constitutional: Reports No Symptoms
Respiratory: Denies Cough or Wheezing
Cardiac: Reports No Symptoms; Denies Chest Pain or Palpitations
Abdomen/GI: Reports Diarrhea; Denies Abdominal Pain or Vomiting
Musculoskeletal: Reports No Symptoms
Neuro: Reports No Symptoms; Denies Headache or Numbness
Hematologic / Lymphatic: Reports No Symptoms
Physical Exam
-
General: Well Developed and No Apparent Distress; Negative Respiratory Distress
HEENT: Normocephalic, Atraumatic and Moist Mucous Membranes
Respiratory: Crackles (Mild bilateral crackles on lung bases) and Non Labored Respirations; Negative Wheezes or Rhonchi
Cardiac: S1/S2 and Irregular Rhythm; Negative Murmur, Rub or Gallop
GI: Soft, Nontender, Nondistended and Normal Bowel Sounds; Negative Organomegaly
Rectal: Deferred by Provider
Musculoskeletal: No Clubbing, No Cyanosis and No Edema
Skin: Negative Rash
Neuro: Awake, Alert and AO x 3
Psych: Calm
Data Reviewed
-
Diagnostic Radiology: Image personally visualized and interpreted, Report Reviewed by me and Discussed with Physician
Medical Tests (Nuc Med, Echo etc): Image personally visualized and interpreted and Report Reviewed by me
Labs: Labs Reviewed by me and Discussed with Physician
Old Records: Reviewed
[2023-12-28 08:28] LABS: ALT (SGPT) 160 U/L (0-35); AST (SGOT) 216 U/L (14-36); Albumin 2.5 g/dl (3.5-5.0); Alkaline Phosphatase 64 U/L (38-126); Blood Urea Nitrogen 52 mg/dl (7-17); Calcium 7.9 mg/dl (8.4-10.2); Carbon Dioxide 21 mmol/L (22-30); Chloride 106 mmol/L (98-107); Estimated Creatinine Clearance 38 ml/min; Glucose 185 mg/dl (70-99); Potassium 3.4 mmol/L (3.5-5.1); Sodium 140 mmol/L (135-145); Total Bilirubin 0.6 mg/dl (0.2-1.3); Total Protein 4.6 g/dl (6.3-8.2)
[2023-12-28] MEDS: DESENEX/MITRAZOL/ZEASORB 1 APPLIC TOPICAL ×2 (08:58→21:04)
[2023-12-28] MEDS: NSS (PRESERVATIVE FREE) 10 ML IV (08:59)
[2023-12-28] MEDS: PROTONIX IV 40 MG IV (08:59)
[2023-12-28] MEDS: SOLU-CORTEF 50 MG IV ×2 (09:00→21:04)
[2023-12-28] MEDS: NSS 1000 IV (09:49)
--- NOTE | 2023-12-28 09:52 | W.PN.CD ---
Today's Communication / Plan
-
A-fib remains rate controlled.
Remains on IV amiodarone. Transition to oral when able to take oral meds
Not on anticoagulation due to anemia and thrombocytopenia. Platelet count 26
Impression / Plan
-
83-year-old female with dementia, seizures, paroxysmal atrial fibrillation (on apixaban), mild aortic stenosis, hypertension, diabetes, NIDDM, prior CVA, GERD, anemia, adrenal carcinoma with adrenal insufficiency, and prior lung cancer who
presented to the emergency department with a chief complaint of hypoxia. She has associated fever. She was found to be in atrial fibrillation with rapid ventricular response.
Atrial fibrillation with rapid ventricular response
-Rate control improved on IV amiodarone. Plan was to switch to p.o. amiodarone but waiting until patient is able to take oral meds.
-Anticoagulation is currently on hold due to hemoglobin drop and thrombocytopenia. 12/28/2023 hemoglobin 7.8 and platelet count 26
-[id number]: score at least 7 (HTN, age 75 or more, Diabetes Mellitus, prior Stroke/TIA, female gender)
Sepsis, neutropenic fever
Acute hypoxic respiratory failure
-On admission febrile, tachycardic, HOLLIE, and lactic acidosis (7.4).
-She is negative for COVID-19 and influenza
-Antibiotics per primary team-
Anemia/thrombocytopenia
-Hold heparin IV
-Workup per primary team
Hypertension
-Holding home hydralazine and metoprolol given sepsis with hypotension
-Resume as tolerated
HOLLIE, resolved
Aortic stenosis, mild
Dyslipidemia, on atorvastatin
Subjective: awake. Cooperative no alarms on telemetry. Much more interactive when I initially saw her in the emergency department. Rate controlled A-fib on amiodarone no chest pain or shortness of breath
Physical Exam
Vital Signs/Labs
Vital Signs
Temp Pulse Resp BP Pulse Ox
100.3 F 94 24 103/76 97
12/28/23 07:00 12/28/23 07:00 12/28/23 07:00 12/28/23 06:00 12/28/23 07:00
12/28/23 06:16
12/28/23 06:16
PT 18.3 Sec (11.4-14.6) H 12/27/23 12:53
INR 1.51 12/27/23 12:53
APTT 120.4 Sec (23.4-35.0) H 12/26/23 08:14
12/26/23
06:15
[id number] Pept 5990
Data Reviewed
-
Date of Service: December 28, 2023
--- NOTE | 2023-12-28 09:53 | W.PN.ONC ---
Today's Communication / Plan
-
Continue to monitor CBC and differential
Transfuse hemoglobin less than 7.0
Hold anticoagulation until platelets >50
GI workup
Monitor LFTs
DNR
Impression
Impression
Neutropenia resolved Neulasta given 12/20
Deconditioning
Recurrent lung cancer, recent chemo (first dose) with GCSF at [place]
Progressive elevation in AST ALT
Atrial fibrillation
Anemia thrombocytopenia stable
Subjective/Objective
Subjective/Objective
Pleasantly confused this morning with some word finding difficulty.
Vital Signs:
Vital Signs
Temp Pulse Resp BP Pulse Ox
100.3 F 94 24 103/76 97
12/28/23 07:00 12/28/23 07:00 12/28/23 07:00 12/28/23 06:00 12/28/23 07:00
Physical Exam
Constitutional: Comfortable no acute distress
Eyes: EOMI no scleral icterus
Cardiovascular: Regular Rate and S1/S2; Negative S3/S4
Pulmonary: Clear; Negative Wheezes, Rales or Rhonchi
Gastrointestinal: Non Distended
Extremities: Negative Edema, Cyanosis or Erythema
Skin: Warm and Dry; Negative Rash or Jaundice
Neurological: Awake and Alert
Psychological: Calm
Lab Results:
Laboratory Data
WBC 3.8 10^3/uL (4.8-10.8) L 12/28/23 06:16
Hgb 7.8 g/dL (12.0-16.0) L 12/28/23 06:16
Plt Count 26 10^3/uL (130-400) L* 12/28/23 06:16
PT 18.3 Sec (11.4-14.6) H 12/27/23 12:53
INR 1.51 12/27/23 12:53
APTT 120.4 Sec (23.4-35.0) H 12/26/23 08:14
eGFR 55.90 12/28/23 06:16
--- NOTE | 2023-12-28 10:07 | CM ---
Patient from [facility] with Hx lung CA w recent chemo & Neulasta with Dx sepsis from pneumonia/neutropenic fever, rapid Afib, anemia, thrombocytopenia, dysphagia. Febrile. O2 1L. NPO/IVF. PICC. Receiving IV Abx, IV Steroids, IV
Amiodarone.
Spoke with Nelida Cho; she confirmed patient resides there in LTC on [facility] bed hold. The phone for nurse report [phone], fax [phone].
Plan continue to follow for d/c needs. May benefit from PT/OT Eval once less medically acute.
Plan contact daughter prior to d/c back to SNF.
Plan return to [facility] when medically ready.
--- NOTE | 2023-12-28 10:57 | W.PN.NEPH.PH ---
Today's Communication / Plan
-
observe
Follow BMP
Currently on saline as patient is n.p.o. and hypotensive
Okay to discontinue Johnson catheter
Assessment/Plan
-
Assessment
Lung cancer status post chemotherapy
Hypotension
Metabolic acidosis
lactic acidosis
HOLLIE
Seizure disorder diabetes mellitus type 2
Adrenal insufficiency
new Afib
Plan
HOLLIE-improving with IVF
Creatinine of 1.0
K at 3.4 : replete
Metabolic acidosis persist but improved with IVFs to 21
UA ?UTI sample, urine culture negative
worsening met acidosis and L acid normal, likely from cl based IVF and diarrhea
abx per primary
BP are soft on stress dose steroids
follow h/h, prn transfusion, heme follows recent chemo ,AC held
BNP is high, CXR noted PNA, clinically no hypervolemia noted
Family to try to determine goals of care
d/w nursing
-
-
Date of Service: December 28, 2023
CC / HPI / ROS
-
Chief Complaint:
HOLLIE, met acidosis
History of Present Illness:
cr better at 1 , bicarb improved to 21
Lactic acid normal
BP soft, now on isotonic saline
worsening neurotropenia and anemia , low plt
febrile
Afib rate control on Amio
Review of Systems:
on 2lit of O2
diarrhea per nursing, sent for c diff
non oliguric with johnson
Labs
-
Labs:
WBC 3.8 10^3/uL (4.8-10.8) L 12/28/23 06:16
RBC 2.55 10^6/uL (4.20-5.40) L 12/28/23 06:16
Hgb 7.8 g/dL (12.0-16.0) L 12/28/23 06:16
Hct 22.2 % (37.0-47.0) L 12/28/23 06:16
Plt Count 26 10^3/uL (130-400) L* 12/28/23 06:16
Sodium 140 mmol/L (135-145) 12/28/23 06:16
Potassium 3.4 mmol/L (3.5-5.1) L 12/28/23 06:16
Chloride 106 mmol/L (98-107) 12/28/23 06:16
Carbon Dioxide 21 mmol/L (22-30) L 12/28/23 06:16
BUN 52 mg/dl (7-17) H 12/28/23 06:16
Creatinine 1.0 mg/dL (0.6-1.0) 12/28/23 06:16
eGFR 55.90 12/28/23 06:16
Glucose 185 mg/dl (70-99) H 12/28/23 06:16
Calcium 7.9 mg/dl (8.4-10.2) L 12/28/23 06:16
Phosphorus 3.4 mg/dl (2.5-4.5) 12/26/23 08:33
Bam-N-Ixdjdwovtdt Pept 5990 pg/ml 12/26/23 06:15
Albumin 2.5 g/dl (3.5-5.0) L 12/28/23 06:16
Physical Exam
-
Vital Signs:
Vital Signs
Temp Pulse Resp BP Pulse Ox
100.3 F 94 24 103/76 97
12/28/23 07:00 12/28/23 07:00 12/28/23 07:00 12/28/23 06:00 12/28/23 07:00
Cardiovascular:: Regular rate and rhythm
Lung Excursion:: Abnormal (mild tachypnea, decreased BS)
Abdomen:: Nontender and Soft
Extremity Edema:: None: Bilateral:
Johnson Catheter: Yes
[2023-12-28] MEDS: MAXIPIME 2000 MG IV ×2 (11:20→21:10)
[2023-12-28] MEDS: STERILE WATER FOR INJECTION 10 ML IV ×2 (11:20→21:09)
--- NOTE | 2023-12-28 11:36 | W.PN.ID1 ---
Date of Service
Date of Service: December 28, 2023
Today's Communication
Continue antibiotics.
Assessment / Plan
Febrile neutropenia
Right-sided pulmonary infiltrate; ?PNA ?CA
Lung cancer; outpatient progression of disease and recently restarted chemotherapy
DM
CVA
GERD
HTN
DM
Dementia
Recommendations:
Continue with cefepime.
MRSA nasal screen negative; vancomycin discontinued.
Monitor white count and temperature curve.
Follow pending blood cultures
Further recommendations as additional data is returned.
Continue with supportive measures
Chief Complaint
-: Pneumonia and Other (Neutropenia)
Subjective / Review of Systems
Patient seen and examined. Overall, she reports feeling somewhat improved today. Little cough.
Review of Systems: Fever
Vital Signs / Physical Exam
Vital Signs
Vital Signs
Temp Pulse Resp BP Pulse Ox
100.3 F 103 24 105/61 97
12/28/23 07:00 12/28/23 11:21 12/28/23 07:00 12/28/23 11:21 12/28/23 07:00
Physical Exam
Constitutional: Comfortable, Chronically Ill and Non-toxic
Eyes: No Conjunctival Hemorrhage and Sclera Anicteric
Cardiovascular: S1/S2; Negative S3/S4
Pulmonary: Coarse and Non Labored
Gastrointestinal: Soft, Non Tender and Non Distended
Extremities: Negative Cyanosis or Erythema
Neurological: Awake and Alert
Psychological: Calm
Objective Data
Lab Data
Lab Results
12/28/23 06:16
12/28/23 06:16
PT 18.3 Sec (11.4-14.6) H 12/27/23 12:53
INR 1.51 12/27/23 12:53
APTT 120.4 Sec (23.4-35.0) H 12/26/23 08:14
Estimated Creat Clear 38 ml/min 12/28/23 06:16
Lactic Acid 1.9 mmol/L (0.7-2.0) 12/25/23 16:20
Total Bilirubin 0.6 mg/dl (0.2-1.3) 12/28/23 06:16
AST 216 U/L (14-36) H 12/28/23 06:16
ALT 160 U/L (0-35) H 12/28/23 06:16
Alkaline Phosphatase 64 U/L (38-126) 12/28/23 06:16
Most recent labs reviewed.
Micro Results:
12/26/23 09:03 Salmonella/Shigella Culture - Final
Feces/Stool No Salmonella, Shigella, Aeromonas or Plesiomonas species
isolated.
Campylobacter Culture - Final
No Campylobacter species isolated.
Shiga Toxin Test - Final
No E. coli Shiga Toxin 1 or 2 detected.
12/25/23 11:59 Blood Culture - Preliminary
Blood/Venous Coagulase neg. staphylococcus
Additional testing on request
Gram Stain - Preliminary
12/26/23 22:22 Blood Culture - Preliminary
Blood/Venous No Growth in 24 hours- Final report to follow
12/26/23 22:22 Blood Culture - Preliminary
Blood/Venous No Growth in 24 hours- Final report to follow
12/26/23 09:46 Nasal Screen MRSA (PCR) - Final
Nose MRSA not detected - performed by PCR methodology.
12/25/23 11:59 Urine Culture - Final
Urine
12/26/23 09:03 C. difficile GDH Antigen & Toxins - Final
Feces/Stool C. difficile antigen positive, toxin negative.
Clostridium difficile present, but toxin not detected.
Patient may be a carrier, colonized with nontoxinogenic
strain or the level of toxin in sample is below detection
limits. This information should be used in conjunction with
the patient's clinical history.
12/25/23 11:59 Influenza Types A & B (JASE) - Final
Nasal Swab Negative for Influenza A & B, NAAT
Negative results must be combined with clinical observations
and patient history.
Nucleic Acid Amplification test (NAAT)performed on the
[employer] platform.
Imaging:
12/27/2023 CXR (2 view): Frontal and lateral radiographs of the chest obtained. Cardiac silhouette and pulmonary vasculature radiographically within normal limits. Coarsening of the interstitial markings in the right perihilar region extending
into the upper and lower portions of the right lung suggesting interstitial pneumonia. Left side is clear.
[2023-12-28 11:39] LABS: % Basophils 0.5 % (0-2); % Immature Granulocytes 1.1 % (0-0.5); % Lymphocytes 18.2 % (20.5-51.1); % Monocytes 3.9 % (1.7-9.3); % Neutrophils 76.3 % (42.2-75.2); Absolute Lymphocytes 0.7 10^3/uL (1.2-3.4); Absolute Monocytes 0.2 10^3/uL (0.1-0.6); Absolute Neutrophils 2.9 10^3/uL (1.4-6.5); Nucleated Red Blood Cells % 0 %
[2023-12-28 12:39] LABS: Glucose - Point of Care 210 mg/dl (70-99)
[2023-12-28] MEDS: KCL 270 MEQ IV (13:07)
[2023-12-28 18:37] LABS: Glucose - Point of Care 224 mg/dl (70-99)
[2023-12-28] MEDS: NSS IV (21:05)
[2023-12-28] MEDS: CORDARONE 518 MG IV (22:33)
[2023-12-28 23:34] LABS: Glucose - Point of Care 237 mg/dl (70-99)
[2023-12-29] VITALS (8 sets, daily range): BP systolic 99–128; BP diastolic 60–84; BMI 20.5
--- NOTE | 2023-12-29 02:19 | PTCARENOTE ---
Caring for pt overnight. aaaox3, but forgetful & confused at times. Denies pain. Amio gtt remains on. IVF IV steroids. Q2t. Incontinent. Mir was removed at 1730 by daysricardo, pt PVR at 2330 was 63cc. Scds. NO other issues at this time, BA on, call
mulligan in reach.
[2023-12-29] MEDS: LOPRESSOR 5 MG IV ×3 (05:07→19:11)
[2023-12-29] MEDS: NOVOLOG FLEXPEN-LOW RESISTANCE 3 UNITS SC (05:13)
[2023-12-29 05:24] LABS: Glucose - Point of Care 254 mg/dl (70-99)
[2023-12-29 05:31] LABS: Hematocrit 24.9 % (37.0-47.0); Hemoglobin 8.5 g/dL (12.0-16.0); Mean Corp Hgb Conc. 34.1 g/dL (33.0-37.0); Mean Corpuscular Hgb 30.5 pg (27.0-31.0); Mean Corpuscular Volume 89.2 fL (81.0-99.0); Mean Platelet Volume 11.6 fL (7.4-10.4); Platelet Count 33 10^3/uL (130-400); Red Blood Cell Count 2.79 10^6/uL (4.20-5.40); White Blood Cell Count 9.2 10^3/uL (4.8-10.8)
[2023-12-29 05:50] LABS: ALT (SGPT) 206 U/L (0-35); AST (SGOT) 219 U/L (14-36); Albumin 2.5 g/dl (3.5-5.0); Alkaline Phosphatase 70 U/L (38-126); Blood Urea Nitrogen 53 mg/dl (7-17); Calcium 8.4 mg/dl (8.4-10.2); Carbon Dioxide 21 mmol/L (22-30); Chloride 109 mmol/L (98-107); Estimated Creatinine Clearance 38 ml/min; Glucose 232 mg/dl (70-99); Potassium 4.2 mmol/L (3.5-5.1); Sodium 143 mmol/L (135-145); Total Bilirubin 0.6 mg/dl (0.2-1.3); Total Protein 4.8 g/dl (6.3-8.2)
[2023-12-29 07:36] LABS: % Basophils 0.7 % (0-2); % Immature Granulocytes 1.9 % (0-0.5); % Lymphocytes 11.8 % (20.5-51.1); % Monocytes 3.3 % (1.7-9.3); % Neutrophils 82.3 % (42.2-75.2); Absolute Basophils 0.1 10^3/uL (0-0.2); Absolute Immature Granulocytes 0.2 10^3/uL (0-0.05); Absolute Lymphocytes 1.1 10^3/uL (1.2-3.4); Absolute Monocytes 0.3 10^3/uL (0.1-0.6); Absolute Neutrophils 7.5 10^3/uL (1.4-6.5); Nucleated Red Blood Cells % 0 %
--- NOTE | 2023-12-29 07:49 | W.PN.HOSP.TC ---
Addendum entered and electronically signed by Salvador Layton MD 12/29/23 20:35:
Attending Addendum-I saw and evaluated the patient. I reviewed the resident�s note and agree with findings and plan as documented in the resident�s note. Sub: afebrile last 24 hours. Patient states she is feeling much better and stronger but still
very weak Full 12 point ROS reviewed and negative except as documented Exam- vitals reviewed in EMR GEN-NAD heart irreg irreg lungs CTA B/L abd soft NT LE trace edema
Plan:
#Acute Hypoxemic Respiratory Failure/Severe Sepsis from PNA/Neutropenic Fever
- not neutropenic anymore
- afebrile
- heme onc input appreciated
- ID input appreciated
- cont cefepime day # 4
- lactate trended down
- blood cx pos 12/24- GP cocci in clusters- poss contaminant
- blood cx from 12/25- NGTD
- urine cx-NGTD
- Cdiff toxin neg ag pos
- Repeat labs in am
# Rapid Atrial Fibrillation
- improved
- cards input appreciated
- transition amiodarone gtt and metoprolol IV to PO as patient is now taking PO
- hold AC due to decreased plts (33k)-high risk CVA (chadsvasc 7)
-echo 12/25- Normal left ventricular size, wall thickness and systolic function.
LV ejection fraction is 55-60%.
Mild aortic stenosis
Moderate tricuspid regurgitation
# Stage 1 sacral ulcer
- POA
- wound care
# Acute on Chronic Anemia
- no active signs of bleed
- heme check stool-neg
- cont PPI
- tx for HB < 7
- repeat CBC in am
# Diarrhea
- resolved
- c diff toxin neg
# HOLLIE / Metabolic Acidosis
- improved
- ABG - primary respiratory alkalosis with both NG and AG acidosis- compensatory
- appreciate nephro input
- repeat BMP in am
# Severe Dysphagia
- speech on board
- VFSS- 12/26- severe aspiration
- repeat VFSS 12/28- advance diet to pureed
- d/w family no feeding tube
- PICC line replaced 12/26
# Hyperkalemia
- resolved with bicarb
- repeat BMP in am
# Transaminitis
- trend
- repeat LFT in am
# Pancytopenia
- from sepsis/malignancy
- improving daily
- cbc with diff in am
# Adrenal Insufficiency due to adenoma
- stress dose steroids weaned to daily
- repeat BMP in am
- resume home dose in am with PO hydrocortisone
# Lung ca
- s/p Neulasta 12/20 and chemo recently
- hemeonc on board
- repeat labs in am
- care per primary onc as OP
# DM-
- hold metformin
- cont SSI
# HTN-
- hold hydralazine
# HLD-
- hold atorvastatin for now
DVT- SCDs->transition to lovenox when plt > 50K
CODE- DNR/DNI
Time spent coordinating care, review of plan of care with resident, personally reviewed records in EMR, med rec, consults, notes, labs, radiology, cards nephro heme onc d/w nursing � 58 mins
Original Note:
Today's Communication/Plan
-
Much improved
Pureed diet with Mildly thick liquids, ARHP
Continue IV fluid
Follow I's and O's, bladder scan
pt/ot
Follow labs.
Assessment / Plan
Assessment / Plan
Impression: 83-year-old female with PMH of A-fib rate controlled on metoprolol, lung cancer presented to ED on 12/25/2023 from SNF unresponsive with concerns of sepsis.
Assessment:
Septic shock
Neutropenia
Resolved
Bicytopenia
A-fib with RVR
Pneumonia
Acute diarrhea
HOLLIE
Acute cough
Sacral stage I ulcer
# Acute hypoxemic respiratory insufficiency/severe sepsis secondary to PNA/neutropenic fever.
-Resolved. Not neutropenic anymore, ANC 1.1 >> 7500
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
-Levophed as needed maintain MAP> 65.
-Blood cultures 12/25/2023 with coagulase-negative staph, repeat blood culture 12/26/2023 NGTD. Urine cultures NGTD, C. difficile toxin is negative, stool cultures negative.
-COVID-negative.
-IV hydrocortisone reduced to 50mg Q12 hours for history of adrenal insufficiency.
-ID appreciated.
-Continue cefepime day #4
-Tmax 100.4 24H, rectal Tylenol, patient n.p.o. follow fever curve.
PT/OT
-Follow labs.
#A-fib with RVR
-Rate controlled on amiodarone.
-Continue IV amiodarone, transition to oral when able.
-CHADVASC score 7; high CVA risk.
-Not on anticoagulation due to thrombocytopenia, platelets improving, will consider anticoagulation down the line.
-Continue metoprolol with holding parameters.
-Monitor on telemetry
-Cardiology appreciated.
#Acute diarrhea
-Resolved
-Greenish/black stool negative for blood.
-C. difficile antigen positive, toxin negative.
-Salmonella/Shigella culture pending, Campylobacter culture pending, Shiga toxin negative.
# Acute cough
-Severe dysphagia with possible aspiration given CXR reports 12/27/2023.
-Failed video swallow eval. 12/27/2023.
-Family not amenable to feeding tube/PEG.
-PICC line in place 12/26.
-VFSS repeated today, Speech recs IDDS4 with mildly thick liquid per speech.
-ARHP.
-Cosider comfort feeds if unsuccessful.
-Speech appreciated.
#Hyperkalemia
-Resolved with Bicarb.
-Follow BMP.
#HOLLIE (prerenal)
-Resolved with IV fluid.
-Discontinue Mir.
-Bladder scan protocol. Follow I's and O's.
-Continue IV fluid
-Follow creatinine
#Lactic acidosis
-Resolved
-d/c 1/ NS with Bicarb.
-Continue NSS
-Follow volume status.
# Pancytopenia
-Likely due to chemo vs sepsis.
-Improved, Hb up to 7.8 >8.5, platelet up 26> 33, WBC count up 3.8 >9.2
-Most likely due to recent chemotherapy/immunotherapy, with bone marrow recovery.
-Heme-onc recs appreciated.
#Adrenal insufficiency secondary to adenoma.
-Stress dose steroids bolus in ED.
-Wean daily, may start home dose soon.
-Follow BMP.
#Stage I sacral ulcer
-Due to decubitus pressure.
-Intermittent patient repositioning.
#Hx of Lung cancer.
-Follows oncology at [facility].
-Intermittent wheezes and rhonchi on examination.
-Breathing treatment as needed.
-S/p chemotherapy/immunotherapy 6 days ago per daughter.
#Essential hypertension
-Hold hydralazine, and metoprolol given septic shock.
#Adrenal insufficiency
-Stress dose steroids with 100 mg hydrocortisone IV then every 8 hours.
#Type 2 diabetes mellitus
-Hold metformin.
-Start sliding scale insulin low.
#GERD
-Continue PPI
#History of CVA
-Continue statin and aspirin when able.
#DVT prophylaxis
-SCDs
Data:
Echocardiography 12/26/2023:
Normal left ventricular size, wall thickness and systolic function.
LV ejection fraction is 55-60%.
Mild aortic stenosis
Moderate tricuspid regurgitation
Compared to the previous report 05/09/2022. Moderate tricuspid regurgitation now
present. Previous study with hyperdynamic left ventricular function and
suspected mild to moderate aortic stenosis.
CXR 12/27/2023:
Mild right perihilar pneumonia, not significantly changed when compared with the prior study
Anticipated Discharge: 24 - 48 hours
Subjective/Interval History
-
Date of Service: December 29, 2023
Patient seen and examined. More comfortable today, jovial, in no acute cardiopulmonary distress. Reports minimal cough, but denies chest pain, shortness of breath, abdominal pain, fever, chills.
Objective Data
-
Labs:
Laboratory Results
12/29/23
05:05
WBC 9.2
Hgb 8.5 L
Hct 24.9 L
Plt Count 33 L D
Sodium 143
Potassium 4.2
Chloride 109 H
Carbon Dioxide 21 L
BUN 53 H
Creatinine 1.0
Glucose 232 H
Calcium 8.4
Total Bilirubin 0.6
AST 219 H
ALT 206 H
Alkaline Phosphatase 70
Vital Signs:
Vital Signs
Temp Pulse Resp BP Pulse Ox
97.8 F 96 24 116/78 95
12/29/23 04:51 12/29/23 05:07 12/29/23 05:02 12/29/23 05:07 12/29/23 05:02
I&O
12/28/23 12/29/23 12/30/23
06:59 06:59 06:59
Intake Total 1152 / 1152
Output Total 450 / 450 475 / 475
Balance -450 / -450 677 / 677
Review of Systems
-
History Source: Patient
All other systems: Not reviewed unless documented
Constitutional: Reports No Symptoms
Respiratory: Denies Cough or Wheezing
Cardiac: Reports No Symptoms; Denies Chest Pain or Palpitations
Abdomen/GI: Reports Diarrhea; Denies Abdominal Pain or Vomiting
Musculoskeletal: Reports No Symptoms
Neuro: Reports No Symptoms; Denies Headache or Numbness
Hematologic / Lymphatic: Reports No Symptoms
Physical Exam
-
General: Well Developed and No Apparent Distress; Negative Respiratory Distress
HEENT: Normocephalic, Atraumatic and Moist Mucous Membranes
Respiratory: Crackles (Mild bilateral crackles on lung bases) and Non Labored Respirations; Negative Wheezes or Rhonchi
Cardiac: S1/S2 and Irregular Rhythm; Negative Murmur, Rub or Gallop
GI: Soft, Nontender, Nondistended and Normal Bowel Sounds; Negative Organomegaly
Rectal: Deferred by Provider
Musculoskeletal: No Clubbing, No Cyanosis and No Edema
Skin: Warm; Negative Rash
Neuro: Awake, Alert and AO x 3
Psych: Calm and Intact Judgement/Insight
Data Reviewed
-
Diagnostic Radiology: Image personally visualized and interpreted, Report Reviewed by me and Discussed with Physician
Medical Tests (Nuc Med, Echo etc): Image personally visualized and interpreted and Report Reviewed by me
Labs: Labs Reviewed by me and Discussed with Physician
Old Records: Reviewed
[2023-12-29] MEDS: NSS 1000 IV ×2 (07:56→21:20)
--- NOTE | 2023-12-29 08:00 | PTCARENOTE ---
Pt AAOx3 some confusion and forgetful Strict NPO . Dual lumen PICC with NSS and amio infusionm.
[2023-12-29] MEDS: SOLU-CORTEF 50 MG IV (09:03)
[2023-12-29] MEDS: NSS (PRESERVATIVE FREE) 10 ML IV (09:05)
[2023-12-29] MEDS: PROTONIX IV 40 MG IV (09:05)
[2023-12-29] MEDS: DESENEX/MITRAZOL/ZEASORB 1 APPLIC TOPICAL ×2 (09:13→21:18)
[2023-12-29] MEDS: SOLU-CORTEF IV (09:14)
--- NOTE | 2023-12-29 09:24 | W.PN.CD ---
Today's Communication / Plan
-
Cont amio rates are controlled
transition to oral when able to take meds
No AC given Plts <50
Impression / Plan
-
83-year-old female with dementia, seizures, paroxysmal atrial fibrillation (on apixaban), mild aortic stenosis, hypertension, diabetes, NIDDM, prior CVA, GERD, anemia, adrenal carcinoma with adrenal insufficiency, and prior lung cancer who
presented to the emergency department with a chief complaint of hypoxia. She has associated fever. She was found to be in atrial fibrillation with rapid ventricular response.
Atrial fibrillation with rapid ventricular response
-Cont IV amiodarone. Plan to switch to p.o. amiodarone but waiting until patient is able to take oral meds.
-Anticoagulation is currently on hold due to hemoglobin drop and thrombocytopenia; Plts remain < 50
-[id number]: score at least 7 (HTN, age 75 or more, Diabetes Mellitus, prior Stroke/TIA, female gender)
Sepsis, neutropenic fever
Acute hypoxic respiratory failure
-On admission febrile, tachycardic, HOLLIE, and lactic acidosis (7.4).
-She is negative for COVID-19 and influenza
-Antibiotics per primary team-
Anemia/thrombocytopenia
-Hold heparin IV
-Workup per primary team
Hypertension
-Holding home hydralazine and metoprolol given sepsis with hypotension
-Resume as tolerated
HOLLIE, resolved
Aortic stenosis, mild
Dyslipidemia, on atorvastatin
Subjective: Feels OK would like to eat
Physical Exam
Vital Signs/Labs
Vital Signs
Temp Pulse Resp BP Pulse Ox
97.4 F 96 24 116/78 95
12/29/23 07:15 12/29/23 05:07 12/29/23 05:02 12/29/23 05:07 12/29/23 05:02
12/29/23 05:05
12/29/23 05:05
PT 18.3 Sec (11.4-14.6) H 12/27/23 12:53
INR 1.51 12/27/23 12:53
APTT 120.4 Sec (23.4-35.0) H 12/26/23 08:14
12/26/23
06:15
Gib-T-Wzbxvyssdtv Pept 5990
Physical Exam
Constitutional: No acute distress and Comfortable
EENT: Anicteric
Cardiovascular: Pedal edema is absent and Rhythm/rate is irregular
Respiratory: Respiratory effort normal and Lungs clear to auscul.
GI: Soft
Neuro/Psych: AO x 3
Data Reviewed
-
Date of Service: December 29, 2023
EKG: Tracing Personally Visualized and interpreted (af)
Echo: Report Reviewed by me
Labs: Labs Reviewed by me
[2023-12-29] MEDS: STERILE WATER FOR INJECTION 10 ML IV ×2 (10:35→21:21)
[2023-12-29] MEDS: MAXIPIME 2000 MG IV ×2 (10:35→21:21)
--- NOTE | 2023-12-29 11:03 | W.PN.ONC2 ---
Today's Communication / Plan
-
daily CBC
nystatin
Impression
Impression
Neutropenia resolved, s/p Neulasta 12/20
Deconditioning
Recurrent lung cancer, recent chemo (first dose) with GCSF at [place]
elevation in AST/ALT with normal bili
Atrial fibrillation
Anemia, thrombocytopenia stable
HOLLIE improved
oral thrush
Plan
Plan
broad spectrum antibiotics per ID
heme testing of stool, transfuse as clinically indicated
avoid anticoagulation, nsaids, and antiplatelets for platelet <50,000
nystatin
further medical oncology management per primary oncologist
Subjective/Objective
Subjective
afebrile, no hypotension, 1L NC
pain in mouth
Vital Signs:
Vital Signs
Temp Pulse Resp BP Pulse Ox
97.4 F 94 26 113/81 94
12/29/23 07:15 12/29/23 10:00 12/29/23 10:00 12/29/23 08:00 12/29/23 10:00
Lab Results:
Laboratory Data
WBC 9.2 10^3/uL (4.8-10.8) 12/29/23 05:05
Hgb 8.5 g/dL (12.0-16.0) L 12/29/23 05:05
Plt Count 33 10^3/uL (130-400) L D 12/29/23 05:05
PT 18.3 Sec (11.4-14.6) H 12/27/23 12:53
INR 1.51 12/27/23 12:53
APTT 120.4 Sec (23.4-35.0) H 12/26/23 08:14
eGFR 55.90 12/29/23 05:05
Physical Exam
Constitutional: Comfortable no acute distress
Eyes: no scleral icterus
ENT oral thrush/mucocitis
Cardiovascular: Regular Rate and S1/S2
Pulmonary: Clear
Gastrointestinal: soft, Non Distended
Extremities: no Edema
Skin: Warm and Dry; no Jaundice
Neurological: Awake and Alert
Psychological: Calm
--- NOTE | 2023-12-29 11:11 | W.PN.NEPH.PH ---
Today's Communication / Plan
-
wean off IVF when PO intake is better
Assessment/Plan
-
Assessment
Lung cancer status post chemotherapy
Hypotension
Metabolic acidosis
lactic acidosis
HOLLIE
Seizure disorder diabetes mellitus type 2
Adrenal insufficiency
new Afib
Plan
HOLLIE-resolved with IVF
Creatinine of 1.0
wean IVF when po intake is better
monitor met acidosis -stable on NS
UA ?UTI sample, urine culture negative
abx per primary
BP are stable on weaning steroids and IV BB
follow h/h, prn transfusion, heme follows recent chemo ,AC held
Family to try to determine goals of care
will s/o, call with ?s
-
-
Date of Service: December 29, 2023
CC / HPI / ROS
-
Chief Complaint:
HOLLIE, met acidosis
History of Present Illness:
cr better at 1 , bicarb stable at 21
BP stable
improving pancytopenia
afebrile
on Amio for afib
Review of Systems:
on 1lit of O2
barely non oliguric with johnson but incontinent too
Labs
-
Labs:
WBC 9.2 10^3/uL (4.8-10.8) 12/29/23 05:05
RBC 2.79 10^6/uL (4.20-5.40) L 12/29/23 05:05
Hgb 8.5 g/dL (12.0-16.0) L 12/29/23 05:05
Hct 24.9 % (37.0-47.0) L 12/29/23 05:05
Plt Count 33 10^3/uL (130-400) L D 12/29/23 05:05
Sodium 143 mmol/L (135-145) 12/29/23 05:05
Potassium 4.2 mmol/L (3.5-5.1) 12/29/23 05:05
Chloride 109 mmol/L (98-107) H 12/29/23 05:05
Carbon Dioxide 21 mmol/L (22-30) L 12/29/23 05:05
BUN 53 mg/dl (7-17) H 12/29/23 05:05
Creatinine 1.0 mg/dL (0.6-1.0) 12/29/23 05:05
eGFR 55.90 12/29/23 05:05
Glucose 232 mg/dl (70-99) H 12/29/23 05:05
Calcium 8.4 mg/dl (8.4-10.2) 12/29/23 05:05
Phosphorus 3.4 mg/dl (2.5-4.5) 12/26/23 08:33
Axs-O-Nimhrftyapg Pept 5990 pg/ml 12/26/23 06:15
Albumin 2.5 g/dl (3.5-5.0) L 12/29/23 05:05
Physical Exam
-
Vital Signs:
Vital Signs
Temp Pulse Resp BP Pulse Ox
97.4 F 94 26 113/81 94
12/29/23 07:15 12/29/23 10:00 12/29/23 10:00 12/29/23 08:00 12/29/23 10:00
Cardiovascular:: Regular rate and rhythm
Respiratory:: Bilateral: CTA (decreased)
Lung Excursion:: Normal
Abdomen:: Nontender and Soft
Extremity Edema:: None: Bilateral:
Johnson Catheter: Yes
--- NOTE | 2023-12-29 12:19 | W.PN.ID1 ---
Date of Service
Date of Service: December 29, 2023
Today's Communication
Continue antibiotics.
Assessment / Plan
Febrile neutropenia
Right-sided pulmonary infiltrate; ?PNA ?CA
Lung cancer; outpatient progression of disease and recently restarted chemotherapy
DM
CVA
GERD
HTN
DM
Dementia
Recommendations:
Continue with cefepime.
MRSA nasal screen negative; vancomycin previously discontinued.
Monitor white count and temperature curve.
Follow pending blood cultures.
With improvement in white count and fevers, may be able to transition to an oral regimen in the next 24 to 48 hours.
Further recommendations as additional data is returned.
Continue with supportive measures
����������������������������������������������������������
Chief Complaint
-: Pneumonia and Other (Neutropenia)
Subjective / Review of Systems
Patient seen and examined. Reports a coughing fit earlier this morning, but otherwise feels well.
Vital Signs / Physical Exam
Vital Signs
Vital Signs
Temp Pulse Resp BP Pulse Ox
97.4 F 94 26 113/81 94
12/29/23 07:15 12/29/23 10:00 12/29/23 10:00 12/29/23 08:00 12/29/23 10:00
Physical Exam
Constitutional: Comfortable, Chronically Ill and Non-toxic
Eyes: No Conjunctival Hemorrhage and Sclera Anicteric
Cardiovascular: S1/S2; Negative S3/S4
Pulmonary: Coarse and Non Labored
Gastrointestinal: Soft, Non Tender and Non Distended
Extremities: Negative Cyanosis or Erythema
Neurological: Awake and Alert
Psychological: Calm
Objective Data
Lab Data
Lab Results
12/29/23 05:05
12/29/23 05:05
PT 18.3 Sec (11.4-14.6) H 12/27/23 12:53
INR 1.51 12/27/23 12:53
APTT 120.4 Sec (23.4-35.0) H 12/26/23 08:14
Estimated Creat Clear 38 ml/min 12/29/23 05:05
Lactic Acid 1.9 mmol/L (0.7-2.0) 12/25/23 16:20
Total Bilirubin 0.6 mg/dl (0.2-1.3) 12/29/23 05:05
AST 219 U/L (14-36) H 12/29/23 05:05
ALT 206 U/L (0-35) H 12/29/23 05:05
Alkaline Phosphatase 70 U/L (38-126) 12/29/23 05:05
Most recent labs reviewed.
Micro Results:
12/25/23 11:59 Blood Culture - Preliminary
Blood/Venous Coagulase neg. staphylococcus
Additional testing on request
Gram Stain - Preliminary
12/26/23 22:22 Blood Culture - Preliminary
Blood/Venous No Growth in 48 hours- Final report to follow
12/26/23 22:22 Blood Culture - Preliminary
Blood/Venous No Growth in 48 hours- Final report to follow
12/26/23 09:03 Salmonella/Shigella Culture - Final
Feces/Stool No Salmonella, Shigella, Aeromonas or Plesiomonas species
isolated.
Campylobacter Culture - Final
No Campylobacter species isolated.
Shiga Toxin Test - Final
No E. coli Shiga Toxin 1 or 2 detected.
12/26/23 09:46 Nasal Screen MRSA (PCR) - Final
Nose MRSA not detected - performed by PCR methodology.
12/25/23 11:59 Urine Culture - Final
Urine
12/26/23 09:03 C. difficile GDH Antigen & Toxins - Final
Feces/Stool C. difficile antigen positive, toxin negative.
Clostridium difficile present, but toxin not detected.
Patient may be a carrier, colonized with nontoxinogenic
strain or the level of toxin in sample is below detection
limits. This information should be used in conjunction with
the patient's clinical history.
12/25/23 11:59 Influenza Types A & B (JASE) - Final
Nasal Swab Negative for Influenza A & B, NAAT
Negative results must be combined with clinical observations
and patient history.
Nucleic Acid Amplification test (NAAT)performed on the
[employer] platform.
Imaging:
12/27/2023 CXR (2 view): Frontal and lateral radiographs of the chest obtained. Cardiac silhouette and pulmonary vasculature radiographically within normal limits. Coarsening of the interstitial markings in the right perihilar region extending
into the upper and lower portions of the right lung suggesting interstitial pneumonia. Left side is clear.
--- NOTE | 2023-12-29 12:24 | CM ---
Patient from [facility] with Hx lung CA w recent chemo & Neulasta with Dx sepsis from pneumonia/neutropenic fever, rapid Afib, anemia, thrombocytopenia, dysphagia. NPO. Plan repeat VSE today. O2 1L. Receiving IV Abx, IV Steroids, IV
Amiodarone. Per nursing; forgetful, A/O.
[facility]: The phone for nurse report [phone], fax [phone].
Message to Resident Gisella; May benefit from PT/OT Eval.
Plan contact daughter prior to d/c back to SNF.
Plan return to [facility] when medically ready.
[2023-12-29] MEDS: NOVOLOG FLEXPEN-LOW RESISTANCE 2 UNITS SC ×2 (12:45→19:06)
[2023-12-29 13:00] LABS: Glucose - Point of Care 228 mg/dl (70-99)
[2023-12-29] MEDS: MYCOSTATIN ORAL SUSPENSION 5 ML PO ×2 (14:12→21:21)
--- NOTE | 2023-12-29 14:23 | PTCARENOTE ---
Pt to [employer]ide[employer] swallow and back no resul;ts yet
--- NOTE | 2023-12-29 14:37 | PTCARENOTE ---
Report to [facility] on 42o-1.
--- NOTE | 2023-12-29 14:55 | PTCARENOTE ---
dentures and insulin pen in belongings bag
--- NOTE | 2023-12-29 15:13 | PTOTSP ---
Speech Therapy Repeat VSE:
Overall, pt presents with mild oral stage dysphagia and moderate pharyngeal stage dysphagia. Improvement from last study completed. Aspiration with thin liquids and penetration with mildly thick liquids via cup.
Recommend:
1. Initiate IDDSI 4 (puree) solids and mildly thick liquids
2. Medications crushed in puree
3. Allow sips of thin water sparingly post oral care given supervision per Aspiration Risk Hydration Protocol (ARHP)
4. Supervision/ Assistance with PO intake
5. Aspiration precautions: upright all meals; small bites/sips; slow rate; liquid wash; remain upright for at least 30 minutes following PO intake
6. Continued ST at acute care level
--- NOTE | 2023-12-29 16:20 | PTCARENOTE ---
1620 Pt transferred from IMU via Bed. Alert and verbalizing. Place on telemetry (rhythm Atrial Fib) heart rate 90's to low 100's, continue on Amiodarone IV drip. Noted MD orders, explain to pt can be on Pureed, [place] thick liquids, continue to
monitor pt closely. Pt daughter at bedside.
[2023-12-29 17:37] LABS: Glucose - Point of Care 220 mg/dl (70-99)
[2023-12-29] MEDS: MYCOSTATIN ORAL SUSPENSION PO (19:11)
[2023-12-29 22:00] LABS: Glucose - Point of Care 221 mg/dl (70-99)
[2023-12-29] MEDS: PACERONE 400 MG PO (22:42)
[2023-12-30 03:05] VITALS: BP 110/83
[2023-12-30 03:41] VITALS: BP 107/76
[2023-12-30 07:00] VITALS: BP 109/74
[2023-12-30 08:57] LABS: Glucose - Point of Care 143 mg/dl (70-99)
[2023-12-30] MEDS: NOVOLOG FLEXPEN-LOW RESISTANCE SC (10:51)
[2023-12-30] MEDS: DESENEX/MITRAZOL/ZEASORB 1 APPLIC TOPICAL ×2 (10:52→19:54)
[2023-12-30] MEDS: STERILE WATER FOR INJECTION 10 ML IV (10:53)
[2023-12-30] MEDS: MYCOSTATIN ORAL SUSPENSION 5 ML PO ×3 (10:54→19:03)
[2023-12-30] MEDS: PACERONE 400 MG PO ×2 (10:54→19:51)
[2023-12-30] MEDS: CORTEF 10 MG PO ×2 (10:54→19:50)
[2023-12-30] MEDS: TOPROL XL 25 MG PO (10:55)
[2023-12-30] MEDS: PROTONIX 40 MG PO (10:55)
[2023-12-30] MEDS: MAXIPIME 2000 MG IV (10:56)
[2023-12-30 11:00] VITALS: BP 112/68
--- NOTE | 2023-12-30 11:15 | W.PN.ID1 ---
Date of Service
Date of Service: December 30, 2023
Today's Communication
Continue antibiotics. See below�
Assessment / Plan
Febrile neutropenia
- resolved
Right-sided pulmonary infiltrate; ?PNA ?CA
Lung cancer; outpatient progression of disease and recently restarted chemotherapy
DM
CVA
GERD
HTN
DM
Dementia
Recommendations:
Continue with antibiotics. Transition to oral cefdinir for an additional 3 days.
MRSA nasal screen negative; vancomycin previously discontinued.
Monitor white count and temperature curve.
Continue with supportive measures
����������������������������������������������������������
Chief Complaint
-: Pneumonia and Other (Neutropenia)
Subjective / Review of Systems
Review of Systems: No Fever, No Chills, Cough and No Sputum Production
Vital Signs / Physical Exam
Vital Signs
Vital Signs
Temp Pulse Resp BP Pulse Ox
98.3 F 101 18 109/74 93
12/30/23 07:00 12/30/23 07:00 12/30/23 07:00 12/30/23 07:00 12/30/23 07:00
Physical Exam
Constitutional: Comfortable, Chronically Ill and Non-toxic
Eyes: No Conjunctival Hemorrhage and Sclera Anicteric
Cardiovascular: S1/S2; Negative S3/S4
Pulmonary: Coarse and Non Labored
Gastrointestinal: Soft, Non Tender and Non Distended
Extremities: Negative Cyanosis or Erythema
Neurological: Awake and Alert
Psychological: Calm
Objective Data
Lab Data
PT 18.3 Sec (11.4-14.6) H 12/27/23 12:53
INR 1.51 12/27/23 12:53
APTT 120.4 Sec (23.4-35.0) H 12/26/23 08:14
Estimated Creat Clear 38 ml/min 12/29/23 05:05
Lactic Acid 1.9 mmol/L (0.7-2.0) 12/25/23 16:20
Total Bilirubin 0.6 mg/dl (0.2-1.3) 12/29/23 05:05
AST 219 U/L (14-36) H 12/29/23 05:05
ALT 206 U/L (0-35) H 12/29/23 05:05
Alkaline Phosphatase 70 U/L (38-126) 12/29/23 05:05
Most recent labs reviewed.
Micro Results:
12/26/23 22:22 Blood Culture - Preliminary
Blood/Venous No Growth in 72 hours- Final report to follow
12/26/23 22:22 Blood Culture - Preliminary
Blood/Venous No Growth in 72 hours- Final report to follow
12/25/23 11:59 Blood Culture - Preliminary
Blood/Venous Coagulase neg. staphylococcus
Additional testing on request
Gram Stain - Preliminary
12/26/23 09:03 Salmonella/Shigella Culture - Final
Feces/Stool No Salmonella, Shigella, Aeromonas or Plesiomonas species
isolated.
Campylobacter Culture - Final
No Campylobacter species isolated.
Shiga Toxin Test - Final
No E. coli Shiga Toxin 1 or 2 detected.
12/26/23 09:46 Nasal Screen MRSA (PCR) - Final
Nose MRSA not detected - performed by PCR methodology.
12/25/23 11:59 Urine Culture - Final
Urine
12/26/23 09:03 C. difficile GDH Antigen & Toxins - Final
Feces/Stool C. difficile antigen positive, toxin negative.
Clostridium difficile present, but toxin not detected.
Patient may be a carrier, colonized with nontoxinogenic
strain or the level of toxin in sample is below detection
limits. This information should be used in conjunction with
the patient's clinical history.
12/25/23 11:59 Influenza Types A & B (JASE) - Final
Nasal Swab Negative for Influenza A & B, NAAT
Negative results must be combined with clinical observations
and patient history.
Nucleic Acid Amplification test (NAAT)performed on the
[employer] platform.
Imaging:
12/27/2023 CXR (2 view): Frontal and lateral radiographs of the chest obtained. Cardiac silhouette and pulmonary vasculature radiographically within normal limits. Coarsening of the interstitial markings in the right perihilar region extending
into the upper and lower portions of the right lung suggesting interstitial pneumonia. Left side is clear.
[2023-12-30 11:49] LABS: Glucose - Point of Care 150 mg/dl (70-99)
--- NOTE | 2023-12-30 12:07 | W.PN.CD ---
Today's Communication / Plan
-
Amio and metoprolol
Eliquis when plateletts allow
Impression / Plan
-
83-year-old female with dementia, seizures, paroxysmal atrial fibrillation (on apixaban), mild aortic stenosis, hypertension, diabetes, NIDDM, prior CVA, GERD, anemia, adrenal carcinoma with adrenal insufficiency, and prior lung cancer who
presented to the emergency department with a chief complaint of hypoxia. She has associated fever. She was found to be in atrial fibrillation with rapid ventricular response.
AFib
- Rhythm, by report paroxysmal pattern, still in AFib 100s here, Amio now PO
- Rate: Currently AFib 100s on Amio 400 BID PO and metoprolol ER PO 25 daily
- [id number]: score at least 7 (HTN, age 75 or more, Diabetes Mellitus, prior Stroke/TIA, female gender)
- Eliquis on hold as thrombocytopenia persists
Recurrent lung cancer, recent chemo (first dose) with GCSF at [place]
Sepsis, neutropenic fever
Acute hypoxic respiratory failure, heart failure not suspected
Cytopenias, per heme/onc
- Neutropenia better
- H/H improved, Hgb now 8.5
- Platelet now up to 33
Hypertension
HOLLIE, resolved
Aortic stenosis, mild
Dyslipidemia, on atorvastatin
Subjective: No CP or dyspnea
Physical Exam
Vital Signs/Labs
Vital Signs
Temp Pulse Resp BP Pulse Ox
98.3 F 101 18 109/74 93
12/30/23 07:00 12/30/23 07:00 12/30/23 07:00 12/30/23 07:00 12/30/23 07:00
PT 18.3 Sec (11.4-14.6) H 12/27/23 12:53
INR 1.51 12/27/23 12:53
APTT 120.4 Sec (23.4-35.0) H 12/26/23 08:14
10/22/24
06:15
Zfe-P-Cvucgnmrowj Pept 5990
Physical Exam
Constitutional: No acute distress
Cardiovascular: Rhythm/rate is irregular and S1S2 is normal
Respiratory: Respiratory effort normal and Lungs clear to auscul.
GI: Soft and Distention absent
Data Reviewed
-
Date of Service: December 30, 2023
[2023-12-30 12:12] LABS: Hematocrit 24.1 % (37.0-47.0); Hemoglobin 8.1 g/dL (12.0-16.0); Mean Corp Hgb Conc. 33.6 g/dL (33.0-37.0); Mean Corpuscular Hgb 29.7 pg (27.0-31.0); Mean Corpuscular Volume 88.3 fL (81.0-99.0); Platelet Count 48 10^3/uL (130-400); Red Blood Cell Count 2.73 10^6/uL (4.20-5.40); Red Cell Dist. Width 14.5 % (11.5-14.5); White Blood Cell Count 13.8 10^3/uL (4.8-10.8)
[2023-12-30 12:15] LABS: ALT (SGPT) 165 U/L (0-35); AST (SGOT) 117 U/L (14-36); Albumin 2.4 g/dl (3.5-5.0); Alkaline Phosphatase 74 U/L (38-126); Blood Urea Nitrogen 37 mg/dl (7-17); Calcium 8.5 mg/dl (8.4-10.2); Carbon Dioxide 22 mmol/L (22-30); Chloride 113 mmol/L (98-107); Estimated Creatinine Clearance 42 ml/min; Glucose 132 mg/dl (70-99); Potassium 3.6 mmol/L (3.5-5.1); Sodium 146 mmol/L (135-145); Total Bilirubin 0.5 mg/dl (0.2-1.3); Total Protein 4.9 g/dl (6.3-8.2); eGFR > 60.00
--- NOTE | 2023-12-30 12:21 | W.PN.HOSP.TC ---
Today's Communication/Plan
-
Monitor vital signs see plan
Continue antibiotics
Continue Amio
Continue with dysphagia diet
PT/OT
Assessment / Plan
Assessment / Plan
Impression: 83-year-old female with PMH of A-fib rate controlled on metoprolol, lung cancer presented to ED on 12/25/2023 from SNF unresponsive with concerns of sepsis.
Assessment:
Septic shock
Neutropenia
Resolved
Bicytopenia
A-fib with RVR
Pneumonia
Acute diarrhea
Severe dysphagia
HOLLIE
Acute cough
Sacral stage I ulcer
Transaminitis
Hyponatremia
# Acute hypoxemic respiratory insufficiency/severe sepsis secondary to PNA/neutropenic fever.
-Resolved. Not neutropenic anymore,. Leukocytosis likely secondary Neulasta
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
off pressors
-Blood cultures 12/25/2023 with coagulase-negative staph, repeat blood culture 12/26/2023 NGTD. Urine cultures NGTD, C. difficile toxin is negative, stool cultures negative.
-COVID-negative.
off IV steroids; now back on home dose PO steroids
-ID appreciated.
-Continue abx per ID
follow fever curve
PT/OT
-Follow labs.
#A-fib with RVR
-Rate controlled on amiodarone.
-Continue amio; cardiology following
-CHADVASC score 7; high CVA risk.
-Not on anticoagulation due to thrombocytopenia, platelets improving, will consider anticoagulation down the line.
-Continue metoprolol with holding parameters.
-Monitor on telemetry
-Cardiology appreciated.
Hyponatremia
Start D5 water
Recheck later today
#Acute diarrhea
-Resolved
-Greenish/black stool negative for blood.
-C. difficile antigen positive, toxin negative.
-Salmonella/Shigella culture pending, Campylobacter culture pending, Shiga toxin negative.
# Acute cough
-Severe dysphagia with possible aspiration given CXR reports 12/27/2023.
-Failed video swallow eval. 12/27/2023.
-Family not amenable to feeding tube/PEG.
-PICC line in place 12/26.
-VFSS repeated 12/28, Speech recs IDDS4 with mildly thick liquid per speech.
-Speech appreciated.
Elevated LFTs
Monitor; no abdominal pain
#Hyperkalemia
-Resolved with Bicarb.
-Follow BMP.
#HOLLIE (prerenal)
-Resolved with IV fluid.
-Discontinue Mir.
-Bladder scan protocol. Follow I's and O's.
-Continue IV fluid
-Follow creatinine
#Lactic acidosis
-Resolved
-d/c / NS with Bicarb.
-Continue NSS
-Follow volume status.
# Pancytopenia
-Likely due to chemo vs sepsis.
Monitor hemoglobin, platelets
-Most likely due to recent chemotherapy/immunotherapy, with bone marrow recovery.
-Heme-onc recs appreciated.
#Adrenal insufficiency secondary to adenoma.
-Stress dose steroids bolus in ED.
Now on home dose
-Follow BMP.
#Stage I sacral ulcer
-Due to decubitus pressure.
-Intermittent patient repositioning.
#Hx of Lung cancer.
-Follows oncology at [facility].
-Intermittent wheezes and rhonchi on examination.
-Breathing treatment as needed.
-S/p chemotherapy/immunotherapy 6 days ago per daughter.
#Essential hypertension
-Hold hydralazine, and metoprolol given septic shock.
#Adrenal insufficiency
Now on home dose steroid
#Type 2 diabetes mellitus
-Hold metformin.
-Start sliding scale insulin low.
#GERD
-Continue PPI
#History of CVA
-Continue statin and aspirin when able.
#DVT prophylaxis
-SCDs
Data:
Echocardiography 12/26/2023:
Normal left ventricular size, wall thickness and systolic function.
LV ejection fraction is 55-60%.
Mild aortic stenosis
Moderate tricuspid regurgitation
Compared to the previous report 05/09/2022. Moderate tricuspid regurgitation now
present. Previous study with hyperdynamic left ventricular function and
suspected mild to moderate aortic stenosis.
CXR 12/27/2023:
Mild right perihilar pneumonia, not significantly changed when compared with the prior study
General: Well Developed and No Apparent Distress; Negative Respiratory Distress
HEENT: Normocephalic, Atraumatic and Moist Mucous Membranes,mouth thrush and ulcers
Respiratory: mild crackles and Non Labored Respirations
Cardiac: S1/S2 and Irregular Rhythm; Negative Murmur, Rub or Gallop
GI: Soft, Nontender, Nondistended and Normal Bowel Sounds
Musculoskeletal: No Edema
Neuro: Awake, Alert and AO x 3
Psych: Calm and Intact Judgement/Insight
I spent a total of 52 minutes with the patient or on the floor. More than 50% of this time involved counseling and coordination of care.
Anticipated Discharge: > 48 hours
Subjective/Interval History
-
Date of Service: December 30, 2023
denies nausea
Objective Data
-
Labs:
Laboratory Results
12/30/23
11:36
WBC 13.8 H
Hgb 8.1 L
Hct 24.1 L
Plt Count 48 L D
Sodium 146 H
Potassium 3.6
Chloride 113 H
Carbon Dioxide 22
BUN 37 H
Creatinine 0.9
Glucose 132 H
Calcium 8.5
Total Bilirubin 0.5
AST 117 H
ALT 165 H
Alkaline Phosphatase 74
Vital Signs:
Vital Signs
Temp Pulse Resp BP Pulse Ox
98.3 F 101 18 109/74 93
12/30/23 07:00 12/30/23 07:00 12/30/23 07:00 12/30/23 07:00 12/30/23 07:00
I&O
12/29/23 12/30/23 12/31/23
06:59 06:59 06:59
Intake Total 1152 / 1152 1000 / 1000
Output Total 475 / 475
Balance 677 / 677 1000 / 1000
[2023-12-30 12:51] LABS: % Basophils 0.7 % (0-2); % Eosinophils 0.1 % (0-6); % Immature Granulocytes 6.1 % (0-0.5); % Lymphocytes 21.6 % (20.5-51.1); % Monocytes 3.3 % (1.7-9.3); % Neutrophils 68.2 % (42.2-75.2); Absolute Basophils 0.1 10^3/uL (0-0.2); Absolute Immature Granulocytes 0.8 10^3/uL (0-0.05); Absolute Monocytes 0.5 10^3/uL (0.1-0.6); Absolute Neutrophils 9.4 10^3/uL (1.4-6.5); Nucleated Red Blood Cells % 0.3 %
[2023-12-30] MEDS: NOVOLOG FLEXPEN-LOW RESISTANCE 1 UNITS SC ×2 (14:48→19:02)
[2023-12-30] MEDS: D5W 1000 IV (14:50)
[2023-12-30 17:04] LABS: Glucose - Point of Care 171 mg/dl (70-99)
[2023-12-30 19:00] VITALS: BP 97/58
[2023-12-30 20:37] LABS: Sodium 139 mmol/L (135-145)
[2023-12-30 21:17] LABS: Glucose - Point of Care 210 mg/dl (70-99)
[2023-12-30] MEDS: OMNICEF 300 MG PO (22:47)
[2023-12-30] MEDS: MYCOSTATIN ORAL SUSPENSION PO (22:55)
[2023-12-30 23:00] VITALS: BP 104/88
[2023-12-31] VITALS (8 sets, daily range): BP systolic 105–127; BP diastolic 66–72; PULSE 93–109; O2SAT 94–95
[2023-12-31] MEDS: D5W 1000 IV (05:46)
[2023-12-31 07:39] LABS: ALT (SGPT) 134 U/L (0-35); AST (SGOT) 74 U/L (14-36); Albumin 2.3 g/dl (3.5-5.0); Alkaline Phosphatase 105 U/L (38-126); Blood Urea Nitrogen 32 mg/dl (7-17); Calcium 8.3 mg/dl (8.4-10.2); Carbon Dioxide 22 mmol/L (22-30); Chloride 109 mmol/L (98-107); Estimated Creatinine Clearance 47 ml/min; Glucose 250 mg/dl (70-99); Potassium 3.5 mmol/L (3.5-5.1); Sodium 141 mmol/L (135-145); Total Bilirubin 0.4 mg/dl (0.2-1.3); Total Protein 4.6 g/dl (6.3-8.2); eGFR > 60.00
[2023-12-31 08:30] LABS: % Basophils 0.3 % (0-2); % Eosinophils 0.1 % (0-6); % Immature Granulocytes 5.9 % (0-0.5); % Lymphocytes 11.2 % (20.5-51.1); % Monocytes 3.3 % (1.7-9.3); % Neutrophils 79.2 % (42.2-75.2); Absolute Immature Granulocytes 0.8 10^3/uL (0-0.05); Absolute Lymphocytes 1.5 10^3/uL (1.2-3.4); Absolute Monocytes 0.4 10^3/uL (0.1-0.6); Absolute Neutrophils 10.6 10^3/uL (1.4-6.5); Hematocrit 20.9 % (37.0-47.0); Mean Corp Hgb Conc. 33.5 g/dL (33.0-37.0); Mean Corpuscular Hgb 30.6 pg (27.0-31.0); Mean Corpuscular Volume 91.3 fL (81.0-99.0); Mean Platelet Volume 11.7 fL (7.4-10.4); Nucleated Red Blood Cells % 0.3 %; Platelet Count 44 10^3/uL (130-400); Red Blood Cell Count 2.29 10^6/uL (4.20-5.40); Red Cell Dist. Width 14.4 % (11.5-14.5); White Blood Cell Count 13.3 10^3/uL (4.8-10.8)
[2023-12-31 08:31] LABS: Glucose - Point of Care 245 mg/dl (70-99)
[2023-12-31] MEDS: NOVOLOG FLEXPEN-LOW RESISTANCE 2 UNITS SC ×3 (08:37→17:07)
[2023-12-31] MEDS: MYCOSTATIN ORAL SUSPENSION 5 ML PO ×4 (08:38→20:58)
[2023-12-31] MEDS: TOPROL XL 25 MG PO (08:38)
[2023-12-31] MEDS: CORTEF 10 MG PO ×2 (08:38→20:54)
[2023-12-31] MEDS: PACERONE 400 MG PO ×2 (08:38→20:54)
[2023-12-31] MEDS: PROTONIX 40 MG PO (08:38)
[2023-12-31] MEDS: DESENEX/MITRAZOL/ZEASORB 1 APPLIC TOPICAL ×2 (08:39→20:58)
--- NOTE | 2023-12-31 09:57 | W.PN.CD ---
Today's Communication / Plan
-
Amio and metoprolol
At discharge anticipate Amiodarone 200 mg daily to minimize toxicity/risk of bradycardia
Eliquis when platelets allow
Consider transfusion PRBC
Impression / Plan
-
83-year-old female with dementia, seizures, paroxysmal atrial fibrillation (on apixaban), mild aortic stenosis, hypertension, diabetes, NIDDM, prior CVA, GERD, anemia, adrenal carcinoma with adrenal insufficiency, and prior lung cancer who
presented to the emergency department with a chief complaint of hypoxia. She has associated fever. She was found to be in atrial fibrillation with rapid ventricular response.
AFib
- Rhythm, by report paroxysmal pattern, still in AFib 100s here, Amio now PO
- Rate: Currently AFib 100s on Amio 400 BID PO and metoprolol ER PO 25 daily
- [id number]: score at least 7 (HTN, age 75 or more, Diabetes Mellitus, prior Stroke/TIA, female gender)
- Eliquis on hold as thrombocytopenia persists
Recurrent lung cancer, recent chemo (first dose) with GCSF at [place]
Sepsis, neutropenic fever
Acute hypoxic respiratory failure, heart failure not suspected
Cytopenias, per heme/onc
- Neutropenia better
- H/H was improved, Hgb 8.5 => but now Hgb 7
- Platelet still low 26 => 33 => 48 => 44
Hypertension
HOLLIE, resolved
Aortic stenosis, mild
Dyslipidemia, on atorvastatin
Subjective: No CP or dyspnea
Physical Exam
Vital Signs/Labs
Vital Signs
Temp Pulse Resp BP Pulse Ox
98.3 F 98 16 113/72 100
12/31/23 07:00 12/31/23 07:00 12/31/23 07:00 12/31/23 07:00 12/31/23 07:00
12/31/23 05:35
12/31/23 05:35
PT 18.3 Sec (11.4-14.6) H 12/27/23 12:53
INR 1.51 12/27/23 12:53
APTT 120.4 Sec (23.4-35.0) H 12/26/23 08:14
12/26/23
06:15
Ezl-P-Cmgdmrezkmd Pept 5990
Physical Exam
Constitutional: No acute distress
EENT: Anicteric
Cardiovascular: Rhythm & rate is regular and Pedal edema is absent
Respiratory: Respiratory effort normal and Lungs clear to auscul.
GI: Soft and Distention absent
Neuro/Psych: Alert
Data Reviewed
-
Date of Service: December 31, 2023
--- NOTE | 2023-12-31 11:27 | W.PN.HOSP.TC ---
Today's Communication/Plan
-
monitor vitals
see plan
repeat H/H later today and transfuse for hemoglobin less than 7
cw abx
cw amio
Assessment / Plan
Assessment / Plan
Impression: 83-year-old female with PMH of A-fib rate controlled on metoprolol, lung cancer presented to ED on 12/25/2023 from SNF unresponsive with concerns of sepsis.
Assessment:
Septic shock
Neutropenia
Resolved
Bicytopenia
A-fib with RVR
Pneumonia
Acute diarrhea
Severe dysphagia
HOLLIE
Acute cough
Sacral stage I ulcer
Transaminitis
Hyponatremia
# Acute hypoxemic respiratory insufficiency/severe sepsis secondary to PNA/neutropenic fever.
-Resolved. Not neutropenic anymore,. Leukocytosis likely secondary Neulasta
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
off pressors
-Blood cultures 12/25/2023 with coagulase-negative staph, repeat blood culture 12/26/2023 NGTD. Urine cultures NGTD, C. difficile toxin is negative, stool cultures negative.
-COVID-negative.
off IV steroids; now back on home dose PO steroids
-ID appreciated.
-Continue abx per ID; on cefdinir
follow fever curve
PT/OT
-Follow labs.
#A-fib with RVR
-Rate controlled on amiodarone.
-Continue amio; cardiology following
-CHADVASC score 7; high CVA risk.
-Not on anticoagulation due to thrombocytopenia, platelets improving, will consider anticoagulation down the line.
-Continue metoprolol with holding parameters.
-Monitor on telemetry
-Cardiology appreciated.
Hyponatremia
Started D5 water; now stop as sodium improving
#Acute diarrhea
-Resolved
-Greenish/black stool negative for blood.
-C. difficile antigen positive, toxin negative.
-Salmonella/Shigella culture pending, Campylobacter culture pending, Shiga toxin negative.
# Acute cough
-Severe dysphagia with possible aspiration given CXR reports 12/27/2023.
-Failed video swallow eval. 12/27/2023.
-Family not amenable to feeding tube/PEG.
-PICC line in place 12/26.
-VFSS repeated 12/28, Speech recs IDDS4 with mildly thick liquid per speech.
-Speech appreciated.
# Pancytopenia
-Likely due to chemo and sepsis.
Monitor hemoglobin, platelets
-Most likely due to recent chemotherapy/immunotherapy, with bone marrow recovery.
-Heme-onc recs appreciated.
check H.H later today and transfuse if hgb<7
Elevated LFTs
Monitor; no abdominal pain
#Hyperkalemia
-Resolved with Bicarb.
-Follow BMP.
#HOLLIE (prerenal)
-Resolved with IV fluid.
-Discontinue Mir.
-Bladder scan protocol. Follow I's and O's.
-Continue IV fluid
-Follow creatinine
#Lactic acidosis
-Resolved
-d/c 1/4 NS with Bicarb.
-Continue NSS
-Follow volume status.
#Adrenal insufficiency secondary to adenoma.
-Stress dose steroids bolus in ED.
Now on home dose
-Follow BMP.
#Stage I sacral ulcer
-Due to decubitus pressure.
-Intermittent patient repositioning.
#Hx of Lung cancer.
-Follows oncology at [facility].
-Intermittent wheezes and rhonchi on examination.
-Breathing treatment as needed.
-S/p chemotherapy/immunotherapy 6 days ago per daughter.
#Essential hypertension
-Hold hydralazine, and metoprolol given septic shock.
#Adrenal insufficiency
Now on home dose steroid
#Type 2 diabetes mellitus
-Hold metformin.
-Start sliding scale insulin low.
#GERD
-Continue PPI
#History of CVA
-Continue statin and aspirin when able.
#DVT prophylaxis
-SCDs
Data:
Echocardiography 12/26/2023:
Normal left ventricular size, wall thickness and systolic function.
LV ejection fraction is 55-60%.
Mild aortic stenosis
Moderate tricuspid regurgitation
Compared to the previous report 05/09/2022. Moderate tricuspid regurgitation now
present. Previous study with hyperdynamic left ventricular function and
suspected mild to moderate aortic stenosis.
CXR 12/27/2023:
Mild right perihilar pneumonia, not significantly changed when compared with the prior study
General: Well Developed and No Apparent Distress; Negative Respiratory Distress
HEENT: Normocephalic, Atraumatic and Moist Mucous Membranes,mouth thrush and ulcers
Respiratory: mild crackles and Non Labored Respirations
Cardiac: S1/S2 and Irregular Rhythm; Negative Murmur, Rub or Gallop
GI: Soft, Nontender, Nondistended and Normal Bowel Sounds
Musculoskeletal: No Edema
Neuro: Awake, Alert and AO x 3
Psych: Calm and Intact Judgement/Insight
I spent a total of 52 minutes with the patient or on the floor. More than 50% of this time involved counseling and coordination of care.
Anticipated Discharge: 24 - 48 hours
Subjective/Interval History
-
Date of Service: December 31, 2023
denies pain
Objective Data
-
Labs:
Laboratory Results
12/31/23
05:35
WBC 13.3 H
Hgb 7.0 L
Hct 20.9 L*
Plt Count 44 L
Sodium 141
Potassium 3.5
Chloride 109 H
Carbon Dioxide 22
BUN 32 H
Creatinine 0.8
Glucose 250 H
Calcium 8.3 L
Total Bilirubin 0.4
AST 74 H
ALT 134 H
Alkaline Phosphatase 105
Vital Signs:
Vital Signs
Temp Pulse Resp BP Pulse Ox
97.8 F 86 16 116/71 96
12/31/23 11:26 12/31/23 11:26 12/31/23 11:26 12/31/23 11:26 12/31/23 11:26
I&O
12/30/23 12/31/23 01/01/24
06:59 06:59 06:59
Intake Total 1000 / 1000 680 / 680
Balance 1000 / 1000 680 / 680
[2023-12-31 12:19] LABS: Glucose - Point of Care 238 mg/dl (70-99)
--- NOTE | 2023-12-31 12:49 | W.PN.ID1 ---
Date of Service
Date of Service: December 31, 2023
Today's Communication
Continue antibiotics.
Assessment / Plan
Febrile neutropenia
- resolved
Right-sided pulmonary infiltrate; ?PNA ?CA
Lung cancer; outpatient progression of disease and recently restarted chemotherapy
DM
CVA
GERD
HTN
DM
Dementia
Recommendations:
Continue with oral cefdinir for an additional 2 days.
MRSA nasal screen negative; vancomycin previously discontinued.
Monitor white count and temperature curve.
Continue with supportive measures
����������������������������������������������������������
Chief Complaint
-: Pneumonia and Other (Neutropenia)
Subjective / Review of Systems
Review of Systems: No Fever and No Chills
Vital Signs / Physical Exam
Vital Signs
Vital Signs
Temp Pulse Resp BP Pulse Ox
97.8 F 86 16 116/71 96
12/31/23 11:26 12/31/23 11:26 12/31/23 11:26 12/31/23 11:26 12/31/23 11:26
Physical Exam
Constitutional: No Acute Distress, Comfortable, Chronically Ill and Non-toxic
Pulmonary: Non Labored
Gastrointestinal: Non Distended
Neurological: Awake and Alert
Psychological: Calm
Objective Data
Lab Data
Lab Results
12/31/23 05:35
PT 18.3 Sec (11.4-14.6) H 12/27/23 12:53
INR 1.51 12/27/23 12:53
APTT 120.4 Sec (23.4-35.0) H 12/26/23 08:14
Estimated Creat Clear 47 ml/min 12/31/23 05:35
Lactic Acid 1.9 mmol/L (0.7-2.0) 12/25/23 16:20
Total Bilirubin 0.4 mg/dl (0.2-1.3) 12/31/23 05:35
AST 74 U/L (14-36) H 12/31/23 05:35
ALT 134 U/L (0-35) H 12/31/23 05:35
Alkaline Phosphatase 105 U/L (38-126) 12/31/23 05:35
Most recent labs reviewed.
Chest X-Ray: Image Reviewed and Report Reviewed
Micro Results:
12/26/23 22:22 Blood Culture - Preliminary
Blood/Venous No Growth in 4 days- Final report to follow
12/26/23 22:22 Blood Culture - Preliminary
Blood/Venous No Growth in 4 days- Final report to follow
12/25/23 11:59 Blood Culture - Preliminary
Blood/Venous Coagulase neg. staphylococcus
Additional testing on request
Gram Stain - Preliminary
12/26/23 09:03 Salmonella/Shigella Culture - Final
Feces/Stool No Salmonella, Shigella, Aeromonas or Plesiomonas species
isolated.
Campylobacter Culture - Final
No Campylobacter species isolated.
Shiga Toxin Test - Final
No E. coli Shiga Toxin 1 or 2 detected.
12/26/23 09:46 Nasal Screen MRSA (PCR) - Final
Nose MRSA not detected - performed by PCR methodology.
12/25/23 11:59 Urine Culture - Final
Urine
12/26/23 09:03 C. difficile GDH Antigen & Toxins - Final
Feces/Stool C. difficile antigen positive, toxin negative.
Clostridium difficile present, but toxin not detected.
Patient may be a carrier, colonized with nontoxinogenic
strain or the level of toxin in sample is below detection
limits. This information should be used in conjunction with
the patient's clinical history.
12/25/23 11:59 Influenza Types A & B (JASE) - Final
Nasal Swab Negative for Influenza A & B, NAAT
Negative results must be combined with clinical observations
and patient history.
Nucleic Acid Amplification test (NAAT)performed on the
[employer] platform.
Imaging:
12/27/2023 CXR (2 view): Frontal and lateral radiographs of the chest obtained. Cardiac silhouette and pulmonary vasculature radiographically within normal limits. Coarsening of the interstitial markings in the right perihilar region extending
into the upper and lower portions of the right lung suggesting interstitial pneumonia. Left side is clear.
[2023-12-31 17:06] LABS: Glucose - Point of Care 238 mg/dl (70-99)
[2023-12-31] MEDS: OMNICEF 300 MG PO (20:53)
[2023-12-31 20:57] LABS: Glucose - Point of Care 221 mg/dl (70-99)
[2023-12-31 23:58] LABS: Hematocrit 21.1 % (37.0-47.0); Hemoglobin 7.1 g/dL (12.0-16.0)
[2024-01-01] VITALS (8 sets, daily range): BP systolic 119–138; BP diastolic 68–88
[2024-01-01 05:56] LABS: Hematocrit 21.3 % (37.0-47.0); Hemoglobin 7.2 g/dL (12.0-16.0); Mean Corp Hgb Conc. 33.8 g/dL (33.0-37.0); Mean Corpuscular Hgb 29.9 pg (27.0-31.0); Mean Corpuscular Volume 88.4 fL (81.0-99.0); Mean Platelet Volume 11.8 fL (7.4-10.4); Platelet Count 68 10^3/uL (130-400); Red Blood Cell Count 2.41 10^6/uL (4.20-5.40); Red Cell Dist. Width 14.1 % (11.5-14.5); White Blood Cell Count 20.3 10^3/uL (4.8-10.8)
[2024-01-01 06:16] LABS: ALT (SGPT) 112 U/L (0-35); AST (SGOT) 51 U/L (14-36); Albumin 2.7 g/dl (3.5-5.0); Alkaline Phosphatase 101 U/L (38-126); Blood Urea Nitrogen 25 mg/dl (7-17); Calcium 8.6 mg/dl (8.4-10.2); Carbon Dioxide 23 mmol/L (22-30); Chloride 110 mmol/L (98-107); Estimated Creatinine Clearance 54 ml/min; Glucose 204 mg/dl (70-99); Potassium 3.6 mmol/L (3.5-5.1); Sodium 145 mmol/L (135-145); Total Bilirubin 0.5 mg/dl (0.2-1.3); Total Protein 5.4 g/dl (6.3-8.2); eGFR > 60.00
[2024-01-01 07:39] LABS: Glucose - Point of Care 211 mg/dl (70-99)
[2024-01-01 07:53] LABS: % Basophils 0.5 % (0-2); % Eosinophils 0.2 % (0-6); % Immature Granulocytes 6.8 % (0-0.5); % Lymphocytes 7.5 % (20.5-51.1); % Monocytes 3.2 % (1.7-9.3); % Neutrophils 81.8 % (42.2-75.2); Absolute Basophils 0.1 10^3/uL (0-0.2); Absolute Immature Granulocytes 1.4 10^3/uL (0-0.05); Absolute Lymphocytes 1.5 10^3/uL (1.2-3.4); Absolute Monocytes 0.7 10^3/uL (0.1-0.6); Absolute Neutrophils 16.6 10^3/uL (1.4-6.5); Nucleated Red Blood Cells % 0.1 %
[2024-01-01] MEDS: DESENEX/MITRAZOL/ZEASORB 1 APPLIC TOPICAL ×2 (07:54→20:53)
[2024-01-01] MEDS: MYCOSTATIN ORAL SUSPENSION 5 ML PO ×2 (07:54→12:21)
[2024-01-01] MEDS: NOVOLOG FLEXPEN-LOW RESISTANCE 2 UNITS SC ×2 (07:54→12:22)
[2024-01-01] MEDS: PACERONE 400 MG PO ×2 (07:54→20:53)
[2024-01-01] MEDS: CORTEF 10 MG PO ×2 (07:54→20:53)
[2024-01-01] MEDS: TOPROL XL 25 MG PO (07:54)
[2024-01-01] MEDS: PROTONIX 40 MG PO (07:54)
--- NOTE | 2024-01-01 08:38 | W.PN.CD ---
Today's Communication / Plan
-
Cont amio and metop
At discharge make amio 200 mg
Monitor Hgb now Eliquis is restarted
Impression / Plan
-
83-year-old female with dementia, seizures, paroxysmal atrial fibrillation (on apixaban), mild aortic stenosis, hypertension, diabetes, NIDDM, prior CVA, GERD, anemia, adrenal carcinoma with adrenal insufficiency, and prior lung cancer who
presented to the emergency department with a chief complaint of hypoxia. She has associated fever. She was found to be in atrial fibrillation with rapid ventricular response.
AFib
- Rhythm, by report paroxysmal pattern, still in AFib 100s here, Amio now PO
- Rate: Currently AFib 100s on Amio 400 BID PO and metoprolol ER PO 25 daily
- [id number]: score at least 7 (HTN, age 75 or more, Diabetes Mellitus, prior Stroke/TIA, female gender)
- Plts are 68, Hgb 7.2, restart Eliquis 2.5 mg
Recurrent lung cancer, recent chemo (first dose) with GCSF at [place]
Sepsis, neutropenic fever
Acute hypoxic respiratory failure, heart failure not suspected
Cytopenias, per heme/onc
- Neutropenia better
- H/H was improved, Hgb 8.5 => but now Hgb 7
- Platelet still low 26 => 33 => 48 => 44
Hypertension
HOLLIE, resolved
Aortic stenosis, mild
Dyslipidemia, on atorvastatin
Subjective: No CP or dyspnea
Physical Exam
Vital Signs/Labs
Vital Signs
Temp Pulse Resp BP Pulse Ox
97.5 F 83 16 130/68 99
01/01/24 07:43 01/01/24 07:43 01/01/24 07:43 01/01/24 07:43 01/01/24 07:43
01/01/24 05:28
01/01/24 05:28
PT 18.3 Sec (11.4-14.6) H 12/27/23 12:53
INR 1.51 12/27/23 12:53
APTT 120.4 Sec (23.4-35.0) H 12/26/23 08:14
12/26/23
06:15
Flw-X-Ktrvrbveogh Pept 5990
Physical Exam
Constitutional: No acute distress and Comfortable
EENT: Anicteric
Cardiovascular: Pedal edema is absent and Rhythm/rate is irregular
Respiratory: Respiratory effort normal
GI: Soft
Neuro/Psych: Alert and Oriented
Data Reviewed
-
Date of Service: January 01, 2024
EKG: Tracing Personally Visualized and interpreted (af)
Echo: Report Reviewed by me
Labs: Labs Reviewed by me
--- NOTE | 2024-01-01 10:50 | W.PN.HOSP.TC ---
Addendum entered and electronically signed by Salvador Layton MD 01/01/24 21:38:
Attending Addendum-I saw and evaluated the patient. I reviewed the resident�s note and agree with findings and plan as documented in the resident�s note. Sub: afebrile. Patient states she feels fine but actively coughing s/p nystatin. 'Im not ready
to !' Full 12 point ROS reviewed and negative except as documented Exam- vitals reviewed in EMR GEN-NAD heart irreg irreg lungs scattered exp wheeze fine rhonchi at bases abd soft NT LE trace edema
Plan:
# Acute Hypoxemic Respiratory Failure/Severe Sepsis from PNA/Neutropenic Fever
- resolved
- afebrile
- heme onc-signed off
- ID-signed off
- on cefdinir x 1 additional day
- blood cx pos 12/24- GP cocci in clusters- contaminant
- blood cx from 12/25- NGTD
- Cdiff toxin neg ag pos
- Repeat labs in am
# Rapid Atrial Fibrillation
- resolved
- cards input appreciated
- cont PO amiodarone and metoprolol
- restart eliquis 2.5 (wt<60 age >80)
- echo 12/25- Normal left ventricular size, wall thickness and systolic function.
LV ejection fraction is 55-60%.
Mild aortic stenosis
Moderate tricuspid regurgitation
# Stage 1 sacral ulcer
- POA
- wound care
# Acute on Chronic Anemia
- no active signs of bleed
- heme check stool-neg
- cont PPI
- tx for HB < 7
- repeat CBC in am
- OP w/u for anemia
# Severe Dysphagia/Aspiration
- speech on board
- VFSS- 12/26- severe aspiration
- repeat VFSS 12/28- advance diet to pureed
- d/w family no feeding tube/DHT
- patient likely silently aspirating- poor prognosis
# Transaminitis
- resolving
- trend
- repeat LFT in am
# Leukocytosis
- from steroids recent neulasta and likely aspirating
- cont to follow
- repeat CBC in am
# Adrenal Insufficiency due to adenoma
- stress dose steroids weaned to daily
- repeat BMP in am
- resume home dose PO hydrocortisone
# Lung ca
- s/p Neulasta 12/20 and chemo recently
- hemeonc on board
- repeat labs in am
- care per primary onc as OP
# DM-
- hold metformin
- cont SSI
# HTN-
- hold hydralazine
# HLD-
- hold atorvastatin for now
DVT- on eliquis
CODE- DNR/DNI
Dispo Eventual [facility] to [facility] when able
Time spent coordinating care, review of plan of care with resident, personally reviewed records in EMR, med rec, consults, notes, labs, radiology, d/w nursing � 55 mins
Original Note:
Today's Communication/Plan
-
Continue antibiotic
Continue steroid
Restart Eliquis
Monitor hemoglobin
Assessment / Plan
Assessment / Plan
Impression: 83-year-old female with PMH of A-fib rate controlled on metoprolol, lung cancer presented to ED on 12/25/2023 from [facility] unresponsive with concerns of sepsis.
Plan:
# Acute hypoxemic respiratory insufficiency
#severe sepsis secondary to PNA
#neutropenic fever.
-Neutropenia has resolved.
-Leukocytosis likely secondary Neulasta or to aspiration pneumonitis
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
-Off pressors
-Blood cultures 12/25/2023 with coagulase-negative staph, repeat blood culture 12/26/2023 NGTD. Urine cultures NGTD, C. difficile toxin is negative, stool cultures negative.
-COVID-negative.
IV steroids discontinued, now back on home dose PO steroids
-ID appreciated.
-Continue abx per ID; on cefdinir, will receive 1 extra day
follow fever curve
PT/OT
Daily CBC
#A-fib with RVR
-Rate controlled on amiodarone.
-Still currently in A-fib
-Continue amio; cardiology following
-CHADVASC score 7; high CVA risk.
-Patient restarted on Eliquis 2.5 twice daily due to her weight and age
-Continue metoprolol with holding parameters.
-Monitor on telemetry
-Cardiology appreciated.
#Hyponatremia
Resolved
Previously she received D5 water, stopped as sodium normalized
Daily CMP
#Acute diarrhea
-Resolved
-Greenish/black stool negative for blood.
-C. difficile antigen positive, toxin negative.
-Salmonella/Shigella culture pending, Campylobacter culture pending, Shiga toxin negative.
# Acute cough
-Severe dysphagia with possible aspiration given CXR reports 12/27/2023.
-Failed video swallow eval. 12/27/2023.
-Family not amenable to feeding tube/PEG.
-PICC line in place 12/26.
-VFSS repeated 12/28, Speech recs IDDS4 with mildly thick liquid per speech.
-Speech appreciated.
# Pancytopenia
-Likely due to chemo and sepsis.
Monitor hemoglobin, platelets
-Most likely due to recent chemotherapy/immunotherapy, with bone marrow recovery.
-Heme-onc recs appreciated.
check H.H later today and transfuse if hgb<7
Elevated LFTs
Monitor; no abdominal pain
#Hyperkalemia
-Resolved with Bicarb.
-Follow BMP.
#HOLLIE (prerenal)
-Resolved with IV fluid.
-Discontinue Mir.
-Bladder scan protocol. Follow I's and O's.
-Continue IV fluid
-Follow creatinine
#Lactic acidosis
-Resolved
-d/c 1/4 NS with Bicarb.
-Continue NSS
-Follow volume status.
#Adrenal insufficiency secondary to adenoma.
-Stress dose steroids bolus in ED.
Now on home dose
-Follow BMP.
#Stage I sacral ulcer
-Due to decubitus pressure.
-Intermittent patient repositioning.
#Hx of Lung cancer.
-Follows oncology at [facility].
-Intermittent wheezes and rhonchi on examination.
-Breathing treatment as needed.
-S/p chemotherapy/immunotherapy
#Essential hypertension
-Continue metoprolol
-Holding hydralazine
#Adrenal insufficiency
-Now on home dose steroid
#Type 2 diabetes mellitus
-Hold metformin.
-Start sliding scale insulin low.
#GERD
-Continue PPI
#History of CVA
-Continue statin and aspirin when able.
DVT prophylaxis Eliquis
CODE STATUS DNR
Diet: IDDSI 4
Anticipated Discharge: > 48 hours
Subjective/Interval History
-
Date of Service: January 01, 2024
No acute events overnight
Patient reports coughing fit after nystatin, possible aspiration
Objective Data
-
Labs:
Laboratory Results
12/31/23 01/01/24
23:43 05:28
WBC 20.3 H
Hgb 7.1 L 7.2 L
Hct 21.1 L 21.3 L
Plt Count 68 L D
Sodium 145
Potassium 3.6
Chloride 110 H
Carbon Dioxide 23
BUN 25 H
Creatinine 0.7
Glucose 204 H
Calcium 8.6
Total Bilirubin 0.5
AST 51 H
ALT 112 H
Alkaline Phosphatase 101
Vital Signs:
Vital Signs
Temp Pulse Resp BP Pulse Ox
97.5 F 83 16 130/68 99
01/01/24 07:43 01/01/24 07:43 01/01/24 07:43 01/01/24 07:43 01/01/24 07:43
I&O
12/31/23 01/01/24 01/02/24
06:59 06:59 06:59
Intake Total 680 / 680
Balance 680 / 680
Review of Systems
-
History Source: Patient
Constitutional: Reports No Symptoms
Respiratory: Reports Cough
Cardiac: Reports No Symptoms
Abdomen/GI: Reports No Symptoms
Physical Exam
-
General: Appears Chronically Ill
Respiratory: Clear to Auscultation
Cardiac: S1/S2 and Irregular Rhythm
GI: Soft, Nontender, Nondistended and Normal Bowel Sounds
Musculoskeletal: No Edema
Skin: Warm and Dry
Neuro: Awake, Alert, Oriented and AO x 3
Psych: Calm and Intact Judgement/Insight
Data Reviewed
-
Labs: Labs Reviewed by me and Discussed with Physician
[2024-01-01] MEDS: ELIQUIS 2.5 MG PO ×2 (10:51→20:53)
[2024-01-01 12:22] LABS: Glucose - Point of Care 215 mg/dl (70-99)
[2024-01-01] MEDS: DUONEB 3 ML INH (13:25)
--- NOTE | 2024-01-01 14:22 | CM ---
CM continues to follow for pt's return to [facility] when medically ready. Pt has an MA bed hold at the facility.
CM to coordinate transport back to [facility] at discharge.
--- NOTE | 2024-01-01 14:31 | W.PN.ID1 ---
Date of Service
Date of Service: January 01, 2024
Today's Communication
Sign off
Assessment / Plan
Febrile neutropenia
- resolved
Right-sided pulmonary infiltrate; ?PNA ?CA
Lung cancer; outpatient progression of disease and recently restarted chemotherapy
DM
CVA
GERD
HTN
DM
Dementia
Recommendations:
Continue with oral cefdinir for 1 additional day.
Continue with supportive measures
Little more to offer from a Infectious diseases standpoint.
Will see again at your request.
����������������������������������������������������������
Chief Complaint
-: Pneumonia and Other (Neutropenia)
Subjective / Review of Systems
Patient seen and examined. Reports feeling somewhat weak today.
Review of Systems: No Fever and No Chills
Vital Signs / Physical Exam
Vital Signs
Vital Signs
Temp Pulse Resp BP Pulse Ox
98.0 F 86 18 129/88 100
01/01/24 11:38 01/01/24 13:28 01/01/24 13:28 01/01/24 12:36 01/01/24 13:28
Physical Exam
Constitutional: No Acute Distress, Comfortable, Chronically Ill and Non-toxic
Eyes: Sclera Anicteric
Cardiovascular: S1/S2; Negative S3/S4
Pulmonary: Coarse and Non Labored
Gastrointestinal: Non Distended
Extremities: Negative Edema or Cyanosis
Neurological: Awake and Alert
Psychological: Calm
Objective Data
Lab Data
Lab Results
01/01/24 05:28
01/01/24 05:28
PT 18.3 Sec (11.4-14.6) H 12/27/23 12:53
INR 1.51 12/27/23 12:53
APTT 120.4 Sec (23.4-35.0) H 12/26/23 08:14
Estimated Creat Clear 54 ml/min 01/01/24 05:28
Lactic Acid 1.9 mmol/L (0.7-2.0) 12/25/23 16:20
Total Bilirubin 0.5 mg/dl (0.2-1.3) 01/01/24 05:28
AST 51 U/L (14-36) H 01/01/24 05:28
ALT 112 U/L (0-35) H 01/01/24 05:28
Alkaline Phosphatase 101 U/L (38-126) 01/01/24 05:28
Most recent labs reviewed.
Micro Results:
12/25/23 11:59 Blood Culture - Final
Blood/Venous Coagulase neg. staphylococcus
Additional testing on request
Gram Stain - Final
12/26/23 22:22 Blood Culture - Final
Blood/Venous No Growth - Final Report
12/26/23 22:22 Blood Culture - Final
Blood/Venous No Growth - Final Report
12/26/23 09:03 Salmonella/Shigella Culture - Final
Feces/Stool No Salmonella, Shigella, Aeromonas or Plesiomonas species
isolated.
Campylobacter Culture - Final
No Campylobacter species isolated.
Shiga Toxin Test - Final
No E. coli Shiga Toxin 1 or 2 detected.
12/26/23 09:46 Nasal Screen MRSA (PCR) - Final
Nose MRSA not detected - performed by PCR methodology.
12/25/23 11:59 Urine Culture - Final
Urine
12/26/23 09:03 C. difficile GDH Antigen & Toxins - Final
Feces/Stool C. difficile antigen positive, toxin negative.
Clostridium difficile present, but toxin not detected.
Patient may be a carrier, colonized with nontoxinogenic
strain or the level of toxin in sample is below detection
limits. This information should be used in conjunction with
the patient's clinical history.
12/25/23 11:59 Influenza Types A & B (JASE) - Final
Nasal Swab Negative for Influenza A & B, NAAT
Negative results must be combined with clinical observations
and patient history.
Nucleic Acid Amplification test (NAAT)performed on the
[employer] platform.
Imaging:
12/27/2023 CXR (2 view): Frontal and lateral radiographs of the chest obtained. Cardiac silhouette and pulmonary vasculature radiographically within normal limits. Coarsening of the interstitial markings in the right perihilar region extending
into the upper and lower portions of the right lung suggesting interstitial pneumonia. Left side is clear.
[2024-01-01 16:58] LABS: Glucose - Point of Care 253 mg/dl (70-99)
[2024-01-01] MEDS: NOVOLOG FLEXPEN-LOW RESISTANCE 3 UNITS SC (17:26)
--- NOTE | 2024-01-01 17:34 | W.PN.ONC2 ---
Today's Communication / Plan
-
Counts stable, no intervention needed from Med Onc.
Please call with questions, otherwise further management as per primary med onc.
Impression
Impression
Neutropenia resolved, s/p Neulasta 12/20
Deconditioning
Recurrent lung cancer, recent chemo (first dose) with GCSF at [place]
Elevation in AST/ALT with normal bili
Atrial fibrillation
Anemia, thrombocytopenia stable
HOLLIE improved
Oral thrush
Plan
Plan
Broad spectrum antibiotics per ID
Reported dark stool on admission. Stool heme negative. Has not undergone iron studies or GI consult, but can be deferred with Hgb stable.
Pt now day 12 after chemo, anticipate count recovery, platelets already improving.
Hgb stable without transfusion.
Increase in WBC reflects Neulasta 12/20
further medical oncology management per primary oncologist
Subjective/Objective
Chief Complaint
Heme/Onc follow up of chemo-related cytopenias, lung cancer
Subjective
Denies new complaint. States not OOB much, stood briefly yesterday. Tired of liquid diet.
Vital Signs:
Vital Signs
Temp Pulse Resp BP Pulse Ox
98.1 F 100 17 123/75 99
01/01/24 15:36 01/01/24 15:36 01/01/24 15:36 01/01/24 15:36 01/01/24 15:36
Lab Results:
Laboratory Data
WBC 20.3 10^3/uL (4.8-10.8) H 01/01/24 05:28
Hgb 7.2 g/dL (12.0-16.0) L 01/01/24 05:28
Plt Count 68 10^3/uL (130-400) L D 01/01/24 05:28
PT 18.3 Sec (11.4-14.6) H 12/27/23 12:53
INR 1.51 12/27/23 12:53
APTT 120.4 Sec (23.4-35.0) H 12/26/23 08:14
eGFR > 60.00 01/01/24 05:28
Physical Exam
HEENT: Moist Mucous Membranes; No Jaundice
Cardiology: Normal Sinus Rhythm, S1 and S2
Pulmonary: Clear; No Wheezes
GI: Soft and Normal Bowel Sounds
Extremities: Pulses Present; No Phlebitic Signs
Neuro: Non Focal
[2024-01-01] MEDS: OMNICEF 300 MG PO (20:53)
[2024-01-01 21:42] LABS: Glucose - Point of Care 260 mg/dl (70-99)
[2024-01-02] VITALS (9 sets, daily range): BP systolic 123–151; BP diastolic 73–98; PULSE 74
[2024-01-02] MEDS: DUONEB 3 ML INH (02:38)
[2024-01-02 05:15] LABS: Hematocrit 20.6 % (37.0-47.0); Mean Corpuscular Hgb 30.2 pg (27.0-31.0); Mean Corpuscular Volume 88.8 fL (81.0-99.0); Mean Platelet Volume 10.9 fL (7.4-10.4); Platelet Count 99 10^3/uL (130-400); Red Blood Cell Count 2.32 10^6/uL (4.20-5.40); Red Cell Dist. Width 14.2 % (11.5-14.5); White Blood Cell Count 19.8 10^3/uL (4.8-10.8)
[2024-01-02 05:34] LABS: ALT (SGPT) 86 U/L (0-35); AST (SGOT) 34 U/L (14-36); Albumin 2.6 g/dl (3.5-5.0); Alkaline Phosphatase 101 U/L (38-126); Blood Urea Nitrogen 21 mg/dl (7-17); Calcium 8.4 mg/dl (8.4-10.2); Carbon Dioxide 23 mmol/L (22-30); Chloride 110 mmol/L (98-107); Estimated Creatinine Clearance 54 ml/min; Glucose 226 mg/dl (70-99); Potassium 3.4 mmol/L (3.5-5.1); Sodium 146 mmol/L (135-145); Total Bilirubin 0.4 mg/dl (0.2-1.3); Total Protein 5.1 g/dl (6.3-8.2); eGFR > 60.00
--- NOTE | 2024-01-02 05:48 | PTCARENOTE ---
Critical hematocrit called from lab; value was 20.6. Wendie [employer] made aware, no new orders. Patient asymptomatic.
[2024-01-02 07:34] LABS: Glucose - Point of Care 234 mg/dl (70-99)
--- NOTE | 2024-01-02 07:51 | W.PN.HOSP.TC ---
Addendum entered and electronically signed by Salvador Layton MD 01/02/24 22:40:
Attending Addendum-I saw and evaluated the patient. I reviewed the resident�s note and agree with findings and plan as documented in the resident�s note. Sub: patient with no complaints but coughing throughout exam. Denies SOB but appears as such.
Full 12 point ROS reviewed and negative except as documented Exam- vitals reviewed in EMR GEN-NAD heart irreg irreg lungs scattered exp wheeze fine rhonchi at bases abd soft NT LE trace edema
Plan:
# Acute Hypoxemic Respiratory Failure/Severe Sepsis from PNA/Neutropenic Fever
- resolved now off o2
- afebrile
- heme onc-signed off
- ID-signed off
- on cefdinir last day
- blood cx pos 12/24- GP cocci in clusters- contaminant
- blood cx from 12/25- NGTD
- Cdiff toxin neg ag pos
- Repeat labs in am
# Rapid Atrial Fibrillation
- resolved
- cards input appreciated
- decrease PO amiodarone
- increase metoprolol XL
- cont eliquis 2.5 (wt<60 age >80)
- echo 12/25- Normal left ventricular size, wall thickness and systolic function.
LV ejection fraction is 55-60%.
Mild aortic stenosis
Moderate tricuspid regurgitation
# Thrush
- fluconazole x 1
# Stage 1 sacral ulcer
- POA
- wound care
# Acute on Chronic Anemia
- no active signs of bleed
- heme check stool-neg
- cont PPI
- tx 1 unit PRBC 01/01- consent obtained
- repeat CBC in am
- OP w/u for anemia
# Severe Dysphagia/Aspiration
- speech on board
- VFSS- 12/26- severe aspiration
- repeat VFSS 12/28- cont IDDSI 4
- d/w family no feeding tube/DHT
- patient likely silently aspirating- poor prognosis
# Transaminitis
- resolving
- trend
- repeat LFT in am
# Leukocytosis
- from steroids, recent neulasta, and likely aspirating
- cont to follow
- repeat CBC in am
# Adrenal Insufficiency due to adenoma
- stress dose steroids weaned to daily
- repeat BMP in am
- resume home dose PO hydrocortisone
# Lung ca
- s/p Neulasta 12/20 and chemo recently
- hemeonc on board
- repeat labs in am
- care per primary onc as OP
# DM-
- hold metformin
- cont SSI
# HTN-
- DC hydralazine
- increase toprol XL
# HLD-
- restart atorvastatin on DC
DVT- on eliquis
CODE- DNR/DNI
[facility] in 24-48 hours
Time spent coordinating care, review of plan of care with resident, personally reviewed records in EMR, med rec, consults, notes, labs, radiology, d/w nursing � 60 mins
Original Note:
Today's Communication/Plan
-
Initiate fluconazole
Restart fluids
Transfuse unit packed red blood cell/type and screen
Assessment / Plan
Assessment / Plan
Impression: 83-year-old female with PMH of A-fib rate controlled on metoprolol, lung cancer presented to ED on 12/25/2023 from SNF unresponsive with concerns of sepsis.
Plan:
# Acute hypoxemic respiratory insufficiency
#severe sepsis secondary to PNA
#neutropenic fever.
-Neutropenia has resolved.
-Leukocytosis likely secondary Neulasta or to aspiration pneumonitis
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
-Off pressors
-Blood cultures 12/25/2023 with coagulase-negative staph, repeat blood culture 12/26/2023 NGTD. Urine cultures NGTD, C. difficile toxin is negative, stool cultures negative.
-COVID-negative.
IV steroids discontinued, now back on home dose PO steroids
Last day of cefdinir
follow fever curve
PT/OT
Daily CBC
#A-fib with RVR
-Rate controlled on amiodarone.
-Still currently in A-fib
-Continue amio; cardiology following
-CHADVASC score 7; high CVA risk.
-Patient restarted on Eliquis 2.5 twice daily due to her weight and age
-Continue metoprolol with holding parameters.
-Monitor on telemetry
-Planning to discharge patient on amiodarone 200 mg per cardiology
-Cardiology appreciated.
#Anemia
Hemoglobin returned 7.0
Type and screen ordered
Consent for blood obtained
1 unit packed red blood cells given
Check CBC in a.m.
#Leukocytosis
Patient previously had lymphopenia, now has leukocytosis
Etiology is likely secondary to aspiration and/or aspiration pneumonitis
#Oral thrush
Oral thrush likely secondary to chemo and immune suppression
Patient was receiving nystatin swish and swallow, however patient was aspirating on nystatin swish and swallow
Discontinue nystatin and replaced with single dose oral fluconazole
Checked EKG before initiating fluconazole, QTc was not prolonged
#Hypokalemia
Potassium 3.4 this morning
Status post 40 KCl p.o.
Recheck CMP in a.m.
#Hyponatremia
Resolved
Previously she received D5 water, stopped as sodium normalized
Daily CMP
#Hyponatremia
Sodium returned 146
Likely secondary to dehydration because patient has decreased oral intake
Restarted D5 water and half-normal saline
Recheck CMP in a.m.
#Acute diarrhea
-Resolved
-Greenish/black stool negative for blood.
-C. difficile antigen positive, toxin negative.
-Salmonella/Shigella culture pending, Campylobacter culture pending, Shiga toxin negative.
# Acute cough
-Severe dysphagia with possible aspiration given CXR reports 12/27/2023.
-Failed video swallow eval. 12/27/2023.
-Family not amenable to feeding tube/PEG.
-PICC line in place 12/26.
-VFSS repeated 12/28, Speech recs IDDS4 with mildly thick liquid per speech.
-Speech appreciated.
# Pancytopenia
Likely secondary to chemo
Has resolved, now has leukocytosis, platelets are recovering, hemoglobin stable around 7
Oral thrush present on mouth, has been getting nystatin swish and swallow
Patient began having aspiration, coughing after swish and swallow nystatin
Held nystatin, will consider other oral antifungal agent
Monitor hemoglobin, platelets
Heme-onc recs appreciated, has signed off at this point
check H.H later today and transfuse if hgb<7
Elevated LFTs
Monitor; no abdominal pain
#Hyperkalemia
-Resolved with Bicarb.
-Follow BMP.
#HOLLIE (prerenal)
-Resolved with IV fluid.
-Discontinue Mir.
-Bladder scan protocol. Follow I's and O's.
-Continue IV fluid
-Follow creatinine
#Lactic acidosis
-Resolved
-d/c 1/4 NS with Bicarb.
-Continue NSS
-Follow volume status.
#Adrenal insufficiency secondary to adenoma.
-Stress dose steroids bolus in ED.
Now on home dose
-Follow BMP.
#Stage I sacral ulcer
-Due to decubitus pressure.
-Intermittent patient repositioning.
#Hx of Lung cancer.
-Follows oncology at [facility].
-Intermittent wheezes and rhonchi on examination.
-Breathing treatment as needed.
-S/p chemotherapy/immunotherapy
#Essential hypertension
-Continue metoprolol
-Holding hydralazine
#Adrenal insufficiency
-Now on home dose steroid
#Type 2 diabetes mellitus
-Hold metformin.
-Start sliding scale insulin low.
#GERD
-Continue PPI
#History of CVA
-Continue statin and aspirin when able.
DVT prophylaxis Eliquis
CODE STATUS DNR
Diet: IDDSI 4
Anticipated Discharge: 24 - 48 hours
Subjective/Interval History
-
Date of Service: January 02, 2024
Patient reports doing better than yesterday, still complaining of dry mouth
Coughing fit after oral nystatin swish and swallow
Held nystatin due to aspiration risk
Patient currently still in A-fib
Objective Data
-
Labs:
Laboratory Results
01/02/24
04:33
WBC 19.8 H
Hgb 7.0 L
Hct 20.6 L*
Plt Count 99 L D
Sodium 146 H
Potassium 3.4 L
Chloride 110 H
Carbon Dioxide 23
BUN 21 H
Creatinine 0.7
Glucose 226 H
Calcium 8.4
Total Bilirubin 0.4
AST 34
ALT 86 H
Alkaline Phosphatase 101
Vital Signs:
Vital Signs
Temp Pulse Resp BP Pulse Ox
98.2 F 106 18 124/74 93
01/02/24 07:18 01/02/24 07:18 01/02/24 07:18 01/02/24 07:18 01/02/24 07:18
I&O
01/01/24 01/02/24 01/03/24
06:59 06:59 06:59
Intake Total 660 / 660
Balance 660 / 660
Review of Systems
-
History Source: Patient
Constitutional: Reports No Symptoms
Respiratory: Reports Cough
Cardiac: Reports No Symptoms
Abdomen/GI: Reports No Symptoms
Physical Exam
-
General: Appears Chronically Ill
Respiratory: Clear to Auscultation; Negative Wheezes
Cardiac: S1/S2 and Irregular Rhythm
Musculoskeletal: No Edema
Skin: Warm and Dry
Neuro: Awake, Alert, Oriented and AO x 3
Psych: Calm and Intact Judgement/Insight
Data Reviewed
-
Labs: Labs Reviewed by me and Discussed with Physician
[2024-01-02] MEDS: NOVOLOG FLEXPEN-LOW RESISTANCE 2 UNITS SC (08:22)
[2024-01-02] MEDS: TOPROL XL 25 MG PO (08:23)
[2024-01-02] MEDS: PACERONE 400 MG PO ×2 (08:23→19:37)
[2024-01-02] MEDS: CORTEF 10 MG PO ×2 (08:23→19:35)
[2024-01-02] MEDS: KCL 40 MEQ PO (08:24)
[2024-01-02] MEDS: ELIQUIS 2.5 MG PO ×2 (08:24→19:37)
[2024-01-02] MEDS: PROTONIX 40 MG PO (08:24)
[2024-01-02] MEDS: DESENEX/MITRAZOL/ZEASORB 1 APPLIC TOPICAL ×2 (08:30→19:36)
--- NOTE | 2024-01-02 09:54 | W.PN.CD ---
Today's Communication / Plan
-
transition amio to 200mg po daily on discharge
continue eliquis and bb
I will sign off
Impression / Plan
-
83-year-old female with dementia, seizures, paroxysmal atrial fibrillation (on apixaban), mild aortic stenosis, hypertension, diabetes, NIDDM, prior CVA, GERD, anemia, adrenal carcinoma with adrenal insufficiency, and prior lung cancer who
presented to the emergency department with a chief complaint of hypoxia. She has associated fever. She was found to be in atrial fibrillation with rapid ventricular response.
AFib
- Rhythm, by report paroxysmal pattern, still in AFib 100s here, Amio now PO
- Rate: Currently AFib rate controlled on Amio 400 BID PO and metoprolol ER PO 25 daily
-transition amiodarone to 200mg daily on discharge
- [id number]: score at least 7 (HTN, age 75 or more, Diabetes Mellitus, prior Stroke/TIA, female gender)
- Eliquis 2.5 mg resumed, plt and hgb stable
Recurrent lung cancer, recent chemo (first dose) with GCSF at [facility]
Sepsis, neutropenic fever
Acute hypoxic respiratory failure, heart failure not suspected
Cytopenias, per heme/onc
- Neutropenia better
- H/H was improved, Hgb 8.5 => but now Hgb 7
- Platelet still low 26 => 33 => 48 => 44
Hypertension
HOLLIE, resolved
Aortic stenosis, mild
Dyslipidemia, on atorvastatin
Subjective: No CP or dyspnea,'I need a beautification day'
Physical Exam
Vital Signs/Labs
Vital Signs
Temp Pulse Resp BP Pulse Ox
98.2 F 106 18 124/74 93
01/02/24 07:18 01/02/24 07:18 01/02/24 07:18 01/02/24 07:18 01/02/24 09:46
01/02/24 04:33
01/02/24 04:33
PT 18.3 Sec (11.4-14.6) H 12/27/23 12:53
INR 1.51 12/27/23 12:53
APTT 120.4 Sec (23.4-35.0) H 12/26/23 08:14
12/26/23
06:15
[id number] Pept 5990
Physical Exam
Constitutional: No acute distress
Cardiovascular: Pedal edema is absent, Rhythm/rate is irregular and JVD present (large v wave)
Respiratory: Respiratory effort normal and Crackles Present (at the bases)
Neuro/Psych: AO x 3
Data Reviewed
-
Date of Service: January 02, 2024
Medical Decision Making: Review of Case with other Provider (Dr Mas I will sign off, amio instructions)
--- NOTE | 2024-01-02 11:01 | CM ---
CM reviewed chart, met with patient bedside. Patient LTC resident from [facility], clinicals sent in [facility]. CM will continue to follow for all discharge planning needs.
Plan; return to [facility] when medically stable.
Report [phone]
.
[2024-01-02] MEDS: MYCOSTATIN ORAL SUSPENSION PO (11:47)
[2024-01-02 12:05] LABS: Glucose - Point of Care 295 mg/dl (70-99)
[2024-01-02] MEDS: NOVOLOG FLEXPEN-LOW RESISTANCE 3 UNITS SC ×2 (13:17→17:21)
[2024-01-02] MEDS: DIFLUCAN 200 MG PO (13:17)
[2024-01-02 17:04] LABS: Glucose - Point of Care 275 mg/dl (70-99)
[2024-01-02] MEDS: D5/0.45%NACL 1000 IV (19:48)
[2024-01-02 21:13] LABS: Glucose - Point of Care 295 mg/dl (70-99)
[2024-01-02] MEDS: OMNICEF 300 MG PO (21:18)
[2024-01-03] MEDS: DUONEB 3 ML INH ×2 (02:43→08:16)
[2024-01-03 03:00] VITALS: BP 160/98
[2024-01-03] MEDS: D5/0.45%NACL 1000 IV (05:11)
[2024-01-03 05:51] LABS: Hematocrit 25.5 % (37.0-47.0); Hemoglobin 8.8 g/dL (12.0-16.0); Mean Corp Hgb Conc. 34.5 g/dL (33.0-37.0); Mean Corpuscular Hgb 30.3 pg (27.0-31.0); Mean Corpuscular Volume 87.9 fL (81.0-99.0); Mean Platelet Volume 10.1 fL (7.4-10.4); Platelet Count 140 10^3/uL (130-400); Red Cell Dist. Width 14.5 % (11.5-14.5); White Blood Cell Count 20.9 10^3/uL (4.8-10.8)
[2024-01-03 06:17] LABS: ALT (SGPT) 68 U/L (0-35); AST (SGOT) 28 U/L (14-36); Albumin 2.6 g/dl (3.5-5.0); Alkaline Phosphatase 113 U/L (38-126); Blood Urea Nitrogen 16 mg/dl (7-17); Calcium 8.2 mg/dl (8.4-10.2); Carbon Dioxide 23 mmol/L (22-30); Chloride 109 mmol/L (98-107); Estimated Creatinine Clearance 63 ml/min; Glucose 323 mg/dl (70-99); Potassium 3.4 mmol/L (3.5-5.1); Sodium 145 mmol/L (135-145); Total Bilirubin 0.7 mg/dl (0.2-1.3); Total Protein 5.2 g/dl (6.3-8.2); eGFR > 60.00
[2024-01-03 07:00] VITALS: BP 153/92
[2024-01-03 08:11] LABS: Glucose - Point of Care 314 mg/dl (70-99)
--- NOTE | 2024-01-03 09:50 | W.PN.HOSP.TC ---
Addendum entered and electronically signed by Salvador Layton MD 01/03/24 23:00:
Attending Addendum-I saw and evaluated the patient. I reviewed the resident�s note and agree with findings and plan as documented in the resident�s note. Sub: coughing on entry to room. states she didnt sleep well. . Feel weak but no other
complaints. Full 12 point ROS reviewed and negative except as documented Exam- vitals reviewed in EMR GEN-NAD chronically ill appearing heart irreg irreg lungs fine rhonchi at bases abd soft NT LE trace edema
Plan:
# Acute Hypoxemic Respiratory Failure/Severe Sepsis from PNA/Neutropenic Fever
- resolved now off o2
- afebrile
- heme onc-signed off
- ID-signed off
- completed course of cefdinir
- blood cx pos 12/24- GP cocci in clusters- contaminant
- blood cx from 12/25- NGTD
- Repeat labs in am
# Rapid Atrial Fibrillation
- resolved
- cards input appreciated
- cont decreased dose PO amiodarone
- cont increased metoprolol XL
- cont eliquis 2.5 (wt<60 age >80)
- echo 12/25- Normal left ventricular size, wall thickness and systolic function.
LV ejection fraction is 55-60%.
Mild aortic stenosis
Moderate tricuspid regurgitation
# Thrush
- fluconazole x 1
# Stage 1 sacral ulcer
- POA
- wound care
# Acute on Chronic Anemia
- no active signs of bleed from ca
- heme check stool-neg
- cont PPI
- tx 1 unit PRBC 01/01 hb 7->8.8
- repeat CBC in am
# Severe Dysphagia/Aspiration
- speech on board
- VFSS- 12/26- severe aspiration
- repeat VFSS 12/28- cont IDDSI 4
- d/w family no feeding tube/DHT
- patient likely aspirating- poor prognosis
- pall care appropriate patient resistant
# Transaminitis
- resolving
- trend
- repeat LFT in am
# Hypokalemia-
- replete
- repeat BMP in am
# Leukocytosis
- from steroids, recent neulasta, and likely aspirating
- cont to follow
- repeat CBC in am
# Adrenal Insufficiency due to adenoma
- stress dose steroids weaned to daily
- repeat BMP in am
- resume home dose PO hydrocortisone
# Lung ca
- s/p Neulasta 12/20 and chemo recently
- hemeonc on board
- repeat labs in am
- care per primary onc as OP
# DM-
- restart metformin
- cont SSI
# HTN-
- DC hydralazine
- increase toprol XL
# HLD-
- restart atorvastatin on DC
DVT- on eliquis
CODE- DNR/DNI
[facility] in AM
Time spent coordinating care, review of plan of care with resident, personally reviewed records in EMR, med rec, consults, notes, labs, radiology, d/w nursing � 56 mins
Original Note:
Today's Communication/Plan
-
Palliative care discussion
Replete potassium
Continue IV fluids
Continue steroids
Assessment / Plan
Assessment / Plan
Impression: 83-year-old female with PMH of A-fib rate controlled on metoprolol, lung cancer presented to ED on 12/25/2023 from SNF unresponsive with concerns of sepsis.
Plan:
# Acute hypoxemic respiratory insufficiency
#severe sepsis secondary to PNA
#neutropenic fever.
-Neutropenia has resolved.
-Leukocytosis likely secondary Neulasta or to aspiration pneumonitis
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
-Off pressors
-Blood cultures 12/25/2023 with coagulase-negative staph, repeat blood culture 12/26/2023 NGTD. Urine cultures NGTD, C. difficile toxin is negative, stool cultures negative.
-COVID-negative.
IV steroids discontinued, now back on home dose PO steroids
No longer receiving antibiotics
Infectious disease has signed off, appreciate recommendations
follow fever curve
PT/OT
Daily CBC
#A-fib with RVR
-Rate controlled on amiodarone.
-Still currently in A-fib
-Continue amio; cardiology following
-CHADVASC score 7; high CVA risk.
-Patient restarted on Eliquis 2.5 twice daily due to her weight and age
-Continue metoprolol with holding parameters.
-Monitor on telemetry
-Planning to discharge patient on amiodarone 200 mg per cardiology
-Cardiology appreciated.
# Acute on chronic anemia
Hemoglobin was 7.0
Consent for blood obtained and patient received 1 unit packed red blood cell on 01/02/2024
Hemoglobin increased from 7-8.8
Daily CBC
#Leukocytosis
Patient previously had lymphopenia, now has leukocytosis
May be secondary to steroids or to aspiration pneumonitis
#Oral thrush
Oral thrush likely secondary to chemo and immune suppression
Patient was receiving nystatin swish and swallow, however patient was aspirating on nystatin swish and swallow
Discontinue nystatin and replaced with single dose oral fluconazole
Checked EKG before initiating fluconazole, QTc was not prolonged
#Hypokalemia
Potassium 3.4 this morning
Status post 40 KCl p.o.
Recheck CMP in a.m.
#Hyponatremia
Resolved
Daily CMP
# Hypernatremia
Sodium 145 today
Likely secondary to dehydration because patient has decreased oral intake
Discontinue IV fluids
Recheck CMP in a.m.
#Hyperglycemia
Likely secondary to steroids
Was covering patient with low resistant sliding scale, increased to medium resistance sliding scale
Restarted patient's home dose metformin
#Acute diarrhea
-Resolved
-Greenish/black stool negative for blood.
-C. difficile antigen positive, toxin negative.
-Salmonella/Shigella culture pending, Campylobacter culture pending, Shiga toxin negative.
# Acute cough
-Severe dysphagia with possible aspiration given CXR reports 12/27/2023.
-Failed video swallow eval. 12/27/2023.
-Family not amenable to feeding tube/PEG.
-PICC line in place 12/26.
-VFSS repeated 12/28, Speech recs IDDS4 with mildly thick liquid per speech.
-Speech appreciated.
# Pancytopenia
Likely secondary to chemo
Has resolved, now has leukocytosis, platelets are recovering, hemoglobin stable around 7
Oral thrush present on mouth, has been getting nystatin swish and swallow
Patient began having aspiration, coughing after swish and swallow nystatin
Held nystatin, will consider other oral antifungal agent
Monitor hemoglobin, platelets
Heme-onc recs appreciated, has signed off at this point
check H.H later today and transfuse if hgb<7
Elevated LFTs
Monitor; no abdominal pain
#Hyperkalemia
-Resolved with Bicarb.
-Follow BMP.
#HOLLIE (prerenal)
-Resolved with IV fluid.
-Discontinue Mir.
-Bladder scan protocol. Follow I's and O's.
-Follow creatinine
#Lactic acidosis
-Resolved
-Follow volume status.
#Adrenal insufficiency secondary to adenoma.
-Stress dose steroids bolus in ED.
Now on home dose
-Follow BMP.
#Stage I sacral ulcer
-Due to decubitus pressure.
-Intermittent patient repositioning.
#Hx of Lung cancer.
-Follows oncology at [facility].
-Breathing treatment as needed.
-S/p chemotherapy/immunotherapy
#Essential hypertension
-Continue metoprolol
-Holding hydralazine
#Adrenal insufficiency
-Now on home dose steroid
#Type 2 diabetes mellitus
-Restart metformin
Medium resistance sliding scale
#GERD
-Continue PPI
#History of CVA
-Continue statin and aspirin when able.
Palliative care discussion:
Spoke to patient about option of palliative care, or continuing with chemotherapy. Patient reports that she does not want to be sick anymore, explained to patient that chemotherapy will likely make her sick again as she only received 1 cycle and
had to be hospitalized for. Recommended continuing conversation with her medical oncologist at [facility]. Called daughter to discuss, daughter was in agreements about palliative care discussion and are still currently deciding whether they will we
will not pursue more chemotherapy. Will continue to update daughter throughout stay. Currently planning on having patient follow-up with palliative care consult at her facility after discharge.
DVT prophylaxis Eliquis
CODE STATUS DNR
Diet: IDDSI 4
Anticipated Discharge: 24 - 48 hours
Subjective/Interval History
-
Date of Service: January 03, 2024
Patient had episode of shortness of breath, resolved with nebulizers
Still coughing
Still currently in A-fib
Objective Data
-
Labs:
Laboratory Results
01/03/24 01/03/24
05:04 05:05
WBC 20.9 H
Hgb 8.8 L D
Hct 25.5 L
Plt Count 140 D
Sodium 145
Potassium 3.4 L
Chloride 109 H
Carbon Dioxide 23
BUN 16
Creatinine 0.6
Glucose 323 H
Calcium 8.2 L
Total Bilirubin 0.7
AST 28
ALT 68 H
Alkaline Phosphatase 113
Vital Signs:
Vital Signs
Temp Pulse Resp BP Pulse Ox
98.7 F 89 22 153/92 100
01/03/24 07:00 01/03/24 07:00 01/03/24 07:00 01/03/24 07:00 01/03/24 07:00
I&O
01/02/24 01/03/24 01/04/24
06:59 06:59 06:59
Intake Total 660 / 660 250 / 250
Balance 660 / 660 250 / 250
Review of Systems
-
History Source: Patient
Constitutional: Reports No Symptoms
Respiratory: Reports Cough and Trouble Breathing
Cardiac: Reports No Symptoms
Abdomen/GI: Reports No Symptoms
Physical Exam
-
General: Appears Chronically Ill
Respiratory: Clear to Auscultation
Cardiac: S1/S2 and Irregular Rhythm
GI: Soft, Nontender, Nondistended and Normal Bowel Sounds
Musculoskeletal: No Edema
Skin: Warm and Dry
Neuro: Awake, Alert, Oriented and AO x 3
Psych: Calm and Intact Judgement/Insight
Data Reviewed
-
Labs: Labs Reviewed by me and Discussed with Physician
[2024-01-03] MEDS: NOVOLOG FLEXPEN-LOW RESISTANCE 4 UNITS SC ×2 (10:00→11:45)
[2024-01-03] MEDS: KCL 40 MEQ PO (10:01)
[2024-01-03] MEDS: CORTEF 10 MG PO ×2 (10:04→19:14)
[2024-01-03] MEDS: PROTONIX 40 MG PO (10:05)
[2024-01-03] MEDS: TOPROL XL 50 MG PO (10:05)
[2024-01-03] MEDS: ELIQUIS 2.5 MG PO ×2 (10:06→19:14)
[2024-01-03] MEDS: PACERONE 200 MG PO (10:06)
[2024-01-03] MEDS: DESENEX/MITRAZOL/ZEASORB 1 APPLIC TOPICAL ×2 (10:10→19:14)
[2024-01-03 11:00] VITALS: BP 125/73
[2024-01-03 11:01] LABS: Glucose - Point of Care 315 mg/dl (70-99)
[2024-01-03] MEDS: 0.45%NACL 1000 IV (11:43)
--- NOTE | 2024-01-03 14:11 | CM ---
CM reviewed chart, reviewed with Resident, plan for discharge tomorrow. Update to Jamari in admissions at [facility]. Voicemail left for patients daughter to discuss discharge planning. Ambulance forms on chart. CM will continue to follow for
all discharge planning needs.
Plan; return to [facility] SNF when medically stable.
Report [phone]
.
[2024-01-03 14:54] VITALS: BP 110/68
[2024-01-03 16:56] LABS: Glucose - Point of Care 223 mg/dl (70-99)
[2024-01-03] MEDS: NOVOLOG FLEXPEN-MODERATE RESISTANCE 3 UNITS SC (17:41)
[2024-01-03] MEDS: GLUCOPHAGE 500 MG PO (17:47)
[2024-01-03 19:25] VITALS: BP 129/75
[2024-01-03] MEDS: VENTOLIN NEBULES 1.25 MG INH (21:04)
[2024-01-03 21:15] LABS: Glucose - Point of Care 240 mg/dl (70-99)
[2024-01-03 22:54] VITALS: BP 109/73
[2024-01-04] VITALS (7 sets, daily range): BP systolic 112–143; BP diastolic 71–93; PULSE 103; O2SAT 93
[2024-01-04 05:06] LABS: Hemoglobin 8.8 g/dL (12.0-16.0); Mean Corp Hgb Conc. 33.8 g/dL (33.0-37.0); Mean Corpuscular Hgb 30.2 pg (27.0-31.0); Mean Corpuscular Volume 89.3 fL (81.0-99.0); Mean Platelet Volume 10.3 fL (7.4-10.4); Platelet Count 189 10^3/uL (130-400); Red Blood Cell Count 2.91 10^6/uL (4.20-5.40); Red Cell Dist. Width 14.5 % (11.5-14.5); White Blood Cell Count 21.4 10^3/uL (4.8-10.8)
[2024-01-04 05:15] LABS: ALT (SGPT) 58 U/L (0-35); AST (SGOT) 30 U/L (14-36); Albumin 2.5 g/dl (3.5-5.0); Alkaline Phosphatase 108 U/L (38-126); Blood Urea Nitrogen 12 mg/dl (7-17); Calcium 8.2 mg/dl (8.4-10.2); Carbon Dioxide 24 mmol/L (22-30); Chloride 109 mmol/L (98-107); Estimated Creatinine Clearance 63 ml/min; Glucose 176 mg/dl (70-99); Potassium 3.9 mmol/L (3.5-5.1); Sodium 143 mmol/L (135-145); Total Bilirubin 0.7 mg/dl (0.2-1.3); Total Protein 5.1 g/dl (6.3-8.2); eGFR > 60.00
[2024-01-04 07:25] LABS: Glucose - Point of Care 172 mg/dl (70-99)
--- NOTE | 2024-01-04 09:47 | CM ---
CM reviewed chart, discussed with Resident, patient will remain in hospital for one more day. CM spoke with admissions at [facility], relayed plan for discharge tomorrow. CM will continue to follow for all discharge planning needs.
Plan; [facility], ambulance transport, tomorrow.
[facility]
Report: [phone]
[2024-01-04] MEDS: PROTONIX 40 MG PO (10:00)
[2024-01-04] MEDS: TOPROL XL 50 MG PO (10:00)
[2024-01-04] MEDS: ELIQUIS 2.5 MG PO ×2 (10:00→19:41)
[2024-01-04] MEDS: PACERONE 200 MG PO (10:00)
[2024-01-04] MEDS: CORTEF 10 MG PO ×2 (10:00→19:40)
[2024-01-04] MEDS: GLUCOPHAGE 500 MG PO ×2 (10:00→17:18)
[2024-01-04] MEDS: NOVOLOG FLEXPEN-MODERATE RESISTANCE 1 UNITS SC ×2 (10:01→13:22)
[2024-01-04] MEDS: DESENEX/MITRAZOL/ZEASORB 1 APPLIC TOPICAL ×2 (10:04→19:40)
--- NOTE | 2024-01-04 10:22 | W.PN.HOSP.TC ---
Addendum entered and electronically signed by Salvador Layton MD 01/04/24 23:00:
Attending Addendum-I saw and evaluated the patient. I reviewed the resident�s note and agree with findings and plan as documented in the resident�s note. Sub: seen sitting in chair. continues to feel weak but no other complaints. Full 12 point ROS
reviewed and negative except as documented Exam- vitals reviewed in EMR GEN-NAD chronically ill appearing heart irreg irreg lungs rhonchi at bases abd soft NT LE trace edema
Plan:
# Acute Hypoxemic Respiratory Failure/Severe Sepsis from PNA/Neutropenic Fever
- resolved now off o2
- afebrile
- heme onc-signed off
- ID-signed off
- completed course of cefdinir
- blood cx pos 12/24- GP cocci in clusters- contaminant
- blood cx from 12/25- NGTD
- Repeat labs in am
# Rapid Atrial Fibrillation
- resolved now RC'd
- cards input appreciated
- cont decreased dose PO amiodarone
- cont increased metoprolol XL
- cont eliquis 2.5 (wt<60 age >80)
- echo 12/25- Normal left ventricular size, wall thickness and systolic function.
LV ejection fraction is 55-60%.
Mild aortic stenosis
Moderate tricuspid regurgitation
# Thrush
- fluconazole x 1
- nystatin S/S
# Stage 1 sacral ulcer
- POA
- wound care
# Acute on Chronic Anemia
- no active signs of bleed from ca
- heme check stool-neg
- cont PPI
- tx 1 unit PRBC 01/01
- Hb stable
- repeat CBC in am
# Severe Dysphagia/Aspiration
- speech on board
- VFSS- 12/26- severe aspiration
- repeat VFSS 12/28- cont IDDSI 4
- d/w family no feeding tube/DHT
- patient likely aspirating- poor prognosis
- pall care c/s placed- input appreciated
# Transaminitis
- resolving
# Hypokalemia-
- replete
- repeat BMP in am
# Leukocytosis
- worsening
- from steroids, recent Neulasta, and likely aspirating
- cont to follow
- repeat CBC in am
- poor prognosis
# Adrenal Insufficiency due to adenoma
- repeat BMP in am
- cont home dose PO hydrocortisone
# Lung ca
- s/p Neulasta 12/20 and chemo recently
- hemeonc on board
- repeat labs in am
- poor prog
- pall care conslt appreciated
# DM-
- cont metformin
- cont SSI
# HTN-
- DC'd hydralazine
- cont increased toprol XL
# HLD-
- restart atorvastatin on DC
DVT- on eliquis
CODE- DNR/DNI
Dispo-DC to [facility] in AM hopefully with pall care at facility
Time spent coordinating care, review of plan of care with resident, personally reviewed records in EMR, med rec, consults, notes, labs, radiology, d/w nursing and pall care � 53 mins
Original Note:
Today's Communication/Plan
-
Magic mouthwash for odynophagia
Palliative care consult
Planning discharge to [facility] tomorrow
Assessment / Plan
Assessment / Plan
Impression: 83-year-old female with PMH of A-fib rate controlled on metoprolol, lung cancer presented to ED on 12/25/2023 from SNF unresponsive with concerns of sepsis.
Plan:
# Acute hypoxemic respiratory insufficiency
#severe sepsis secondary to PNA
#neutropenic fever.
-Neutropenia has resolved.
-Leukocytosis likely secondary Neulasta or to aspiration pneumonitis
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
-Off pressors
-Blood cultures 12/25/2023 with coagulase-negative staph, repeat blood culture 12/26/2023 NGTD. Urine cultures NGTD, C. difficile toxin is negative, stool cultures negative.
-COVID-negative.
IV steroids discontinued, now back on home dose PO steroids
No longer receiving antibiotics
Infectious disease has signed off, appreciate recommendations
follow fever curve
PT/OT
Daily CBC
#A-fib with RVR
-Rate controlled on amiodarone.
-Still currently in A-fib
-Continue amio
-CHADVASC score 7; high CVA risk.
-Patient restarted on Eliquis 2.5 twice daily due to her weight and age
-Planning to discharge patient on p.o. amiodarone 200 daily per cardiology
-Cardiology signed off
-Continue metoprolol with holding parameters.
-Monitor on telemetry
-Planning to discharge patient on amiodarone 200 mg per cardiology
-Cardiology appreciated.
# Acute on chronic anemia
Hemoglobin was 7.0
Consent for blood obtained and patient received 1 unit packed red blood cell on 01/02/2024
Hemoglobin increased from 7-8.8
Daily CBC
#Oral/pharyngeal mucositis
Patient developed sores around outside mouth, complaining of pain with swallowing
Did not see any sores on roof of patient's mouth
Ordered Magic mouthwash rinse and spit with speech and swallow's approval
#Leukocytosis
Patient previously had lymphopenia, now has leukocytosis
May be secondary to steroids or to aspiration pneumonitis
#Oral thrush
Oral thrush likely secondary to chemo and immune suppression
Patient was receiving nystatin swish and swallow, however patient was aspirating on nystatin swish and swallow
Discontinue nystatin and replaced with single dose oral fluconazole
Checked EKG before initiating fluconazole, QTc was not prolonged
#Hypokalemia
Potassium 3.4 this morning
Status post 40 KCl p.o.
Recheck CMP in a.m.
#Hyponatremia
Resolved
Daily CMP
# Hypernatremia
Sodium 145 today
Likely secondary to dehydration because patient has decreased oral intake
Discontinue IV fluids
Recheck CMP in a.m.
#Hyperglycemia
Likely secondary to steroids
Was covering patient with low resistant sliding scale, increased to medium resistance sliding scale
Restarted patient's home dose metformin
#Acute diarrhea
-Resolved
-Greenish/black stool negative for blood.
-C. difficile antigen positive, toxin negative.
-Salmonella/Shigella culture pending, Campylobacter culture pending, Shiga toxin negative.
# Acute cough
-Severe dysphagia with possible aspiration given CXR reports 12/27/2023.
-Failed video swallow eval. 12/27/2023.
-Family not amenable to feeding tube/PEG.
-PICC line in place 12/26.
-VFSS repeated 12/28, Speech recs IDDS4 with mildly thick liquid per speech.
-Speech appreciated.
# Pancytopenia
Likely secondary to chemo
Has resolved, now has leukocytosis, platelets are recovering, hemoglobin stable around 7
Oral thrush present on mouth, has been getting nystatin swish and swallow
Patient began having aspiration, coughing after swish and swallow nystatin
Held nystatin, will consider other oral antifungal agent
Monitor hemoglobin, platelets
Heme-onc recs appreciated, has signed off at this point
check H.H later today and transfuse if hgb<7
Elevated LFTs
Monitor; no abdominal pain
#Hyperkalemia
-Resolved with Bicarb.
-Follow BMP.
#HOLLIE (prerenal)
-Resolved with IV fluid.
-Discontinue Mir.
-Bladder scan protocol. Follow I's and O's.
-Follow creatinine
#Lactic acidosis
-Resolved
-Follow volume status.
#Adrenal insufficiency secondary to adenoma.
-Stress dose steroids bolus in ED.
Now on home dose
-Follow BMP.
#Stage I sacral ulcer
-Due to decubitus pressure.
-Intermittent patient repositioning.
#Hx of Lung cancer.
-Follows oncology at [facility].
-Breathing treatment as needed.
-S/p chemotherapy/immunotherapy
#Essential hypertension
-Continue metoprolol
-Holding hydralazine
#Adrenal insufficiency
-Now on home dose steroid
#Type 2 diabetes mellitus
-Restart metformin
Medium resistance sliding scale
Sugars within acceptable limits today
#GERD
-Continue PPI
#History of CVA
-Continue statin and aspirin when able.
Palliative care discussion:
Spoke to patient about option of palliative care, or continuing with chemotherapy. Patient reports that she does not want to be sick anymore, explained to patient that chemotherapy will likely make her sick again as she only received 1 cycle and
had to be hospitalized for. Recommended continuing conversation with her medical oncologist at [facility]. Called daughter to discuss, daughter was in agreements about palliative care discussion and are still currently deciding whether they will or
will not pursue more chemotherapy. Will continue to update daughter throughout stay. Currently planning on having patient follow-up with palliative care consult at her facility after discharge.
Formal palliative care consult placed.
DVT prophylaxis Eliquis
CODE STATUS DNR
Diet: IDDSI 4
Anticipated Discharge: Today
Subjective/Interval History
-
Date of Service: January 04, 2024
Patient reports not feeling well, reports that her shortness of breath has resolved
Does report slight pain of the right thumb tendon with a positive Anh test
Still in A-fib
Objective Data
-
Labs:
Laboratory Results
01/04/24
04:29
WBC 21.4 H
Hgb 8.8 L
Hct 26.0 L
Plt Count 189 D
Sodium 143
Potassium 3.9
Chloride 109 H
Carbon Dioxide 24
BUN 12
Creatinine 0.6
Glucose 176 H
Calcium 8.2 L
Total Bilirubin 0.7
AST 30
ALT 58 H
Alkaline Phosphatase 108
Vital Signs:
Vital Signs
Temp Pulse Resp BP Pulse Ox
98.5 F 101 22 140/93 94
01/04/24 07:30 01/04/24 07:30 01/04/24 07:30 01/04/24 07:30 01/04/24 07:30
I&O
01/03/24 01/04/24 01/05/24
06:59 06:59 06:59
Intake Total 250 / 250 240 / 240
Balance 250 / 250 240 / 240
Review of Systems
-
History Source: Patient
Constitutional: Reports Other (General malaise)
Respiratory: Reports Cough; Denies Trouble Breathing or Wheezing
Cardiac: Reports No Symptoms
Abdomen/GI: Reports No Symptoms
Physical Exam
-
General: Appears Chronically Ill
HEENT: Other (New sores on outside of mouth, did not see any sores on roof of mouth)
Respiratory: Clear to Auscultation
Cardiac: S1/S2 and Irregular Rhythm
GI: Soft, Nontender, Nondistended and Normal Bowel Sounds
Musculoskeletal: No Edema
Skin: Warm and Dry
Neuro: Awake, Alert, Oriented and AO x 3
Psych: Calm and Intact Judgement/Insight
--- NOTE | 2024-01-04 10:23 | W.CON.PAL ---
Consultation
-
Date/Time Consultation Requested: 01/03
Date/Time Consultation Performed: 01/03
Performing Provider: Helen Steele
Reason for Consult: Goals of Care Discussion
Reason for Admission
Illness Course/HPI
Holly is an 83 year old F with PMH of afib, lung cancer s/p recent chemotherapy (follows at [facility]) admitted from SNF with unresponsiveness and fevers.
Upon admission, BP 80/45, temperature 104.5, tachycardic 161, saturating at 100% on nonrebreather mask. CXR with suspected retrocardiac opacities representing either left lung atelectasis or pneumonia. White count 3.3, platelets <50, lactic acid
7.2. +UA and was started on vancomycin and cefepime. Admitted to ICU for further management.
Thrombocytopenia resolved, leukocytosis likely secondary to Neulasta. Onc following.
Also with dysphagia, silent aspiration. Patient and family not interested in further workup at this point. Made DNR/DNI.
Per team, likely not pursuing further cancer treatment. Planned for discharge back to [facility] in the next day or two where she is a LTC resident.
Seen at bedside with no family present. States she feels better today than yesterday but still weak/tired. Defers discussion about discharge plan to children.
Goals of Care Discussion
-
Individuals Present for Discussion & Relationship to Patient:
Spoke with daughter Destiny. Goal is for continued follow up with oncology at [facility]. Will probably defer her scheduled treatment on Monday but want to see if she can bounce back and maybe tolerate more treatment. Discussed hospice vs palliative
and that she could opt for hospice at any time if goal is no more treatment. Expressed understanding.
Patient able to participate in discussion at time of visit: No
Patient's Information Preferences: Defer to Family
Objective Data
-
Objective Data:
Vital Signs
Temp Pulse Resp BP Pulse Ox
98.5 F 101 22 140/93 94
01/04/24 07:30 01/04/24 07:30 01/04/24 07:30 01/04/24 07:30 01/04/24 07:30
Laboratory Results
01/04/24 04:29
01/04/24 04:29
PT 18.3 Sec (11.4-14.6) H 12/27/23 12:53
INR 1.51 12/27/23 12:53
APTT 120.4 Sec (23.4-35.0) H 12/26/23 08:14
Hemoglobin A1c 7.2 % (4.0-5.6) H 12/26/23 06:15
Total Protein 5.1 g/dl (6.3-8.2) L 01/04/24 04:29
Albumin 2.5 g/dl (3.5-5.0) L 01/04/24 04:29
Urine Color Yellow 12/25/23 11:59
Urine Clarity Clear (Clear) 12/25/23 11:59
Urine pH 5.0 (5.0-9.0) 12/25/23 11:59
Ur Specific [place] 1.020 (<1.030) 12/25/23 11:59
Urine Ketones Trace (Negative) A 12/25/23 11:59
Urine Bilirubin 1+ (Negative) A 12/25/23 11:59
Palliative Performance Scale
Palliative Performance Scale:
PPS Level Ambulation Activity & Evidence of Disease Self Care Intake Conscious Level
100% Full Normal Activity & Work; Full Intake Full
No Evidence of Disease
90% Full Normal Activity & Work; Full Normal Full
Some Evidence of Disease
80% Full Normal Activity with Effort Full Normal or Full
Some Evidence of Disease Reduced
70% Reduced Unable Normal Job/Work Full Normal or Full
Significant Disease Reduced
60% Reduced Unable Hobby/Housework Occasional Normal or Full or Confusion
Significant Disease Assistance Reduced
50% Mainly Sit/Lie Unable to do Any Work Considerable Normal or Full or Confusion
Extensive Disease Assistance Req'd Reduced
40% Mainly in Bed Unable to do Most Activity Mainly Assistance Normal or Full or Drowsy;
Extensive Disease Reduced +/- Confusion
30% Totally Bed Unable to do Any Activity Total Care Normal or Full or Drowsy;
Bound Extensive Disease Reduced +/- Confusion
20% Totally Bed Bound Unable to do Any Activity Total Care Minimal to Full or Drowsy;
Extensive Disease Sips +/- Confusion
10% Totally Bed Bound Unable to do Any Activity Total Care Mouth Care Drowsy or Coma;
Extensive Disease Only +/- Confusion
0%
PPS Score Level:
Palliative Performance Score Response
Palliative Performance Score Response: 60%
Physical Exam
-
General: Comfortable and Appears Chronically Ill
HEENT: Normocephalic
Respiratory: Clear to Auscultation
Cardiac: Regular Rhythm
Peripheral Vascular: No Edema
GI: Soft and Nontender
Skin: Warm
Neuro: AO x 3
Psych: Calm
Assessment / Plan
-
Assessment/Plan:
83 year old F with recurrent lung cancer, recently started chemo and immunotherapy admitted with neutropenic fever. Now resolved.
Goal is to continue follow up with oncology and see if patient able to bounce back and tolerate more treatment down the line. Daughter knows hospice an option any time in the future.
Planned for discharged back to LTC at [facility] tomorrow.
Care Reviewed
Data Reviewed
Medical Tests: I reviewed
Reviewed with: Patient and Family
[2024-01-04 12:20] LABS: Glucose - Point of Care 196 mg/dl (70-99)
[2024-01-04 17:13] LABS: Glucose - Point of Care 231 mg/dl (70-99)
[2024-01-04] MEDS: NOVOLOG FLEXPEN-MODERATE RESISTANCE 3 UNITS SC (17:18)
[2024-01-04 21:13] LABS: Glucose - Point of Care 201 mg/dl (70-99)
[2024-01-04] MEDS: MAGIC OR MIRACLE MOUTHWASH 5 ML PO (22:23)
[2024-01-05 02:45] VITALS: BP 125/80
[2024-01-05 05:46] LABS: Hematocrit 25.9 % (37.0-47.0); Hemoglobin 8.8 g/dL (12.0-16.0); Mean Corpuscular Hgb 30.2 pg (27.0-31.0); Platelet Count 236 10^3/uL (130-400); Red Blood Cell Count 2.91 10^6/uL (4.20-5.40); Red Cell Dist. Width 14.5 % (11.5-14.5); White Blood Cell Count 22.3 10^3/uL (4.8-10.8)
[2024-01-05 06:07] LABS: ALT (SGPT) 46 U/L (0-35); AST (SGOT) 25 U/L (14-36); Albumin 2.4 g/dl (3.5-5.0); Alkaline Phosphatase 99 U/L (38-126); Blood Urea Nitrogen 13 mg/dl (7-17); Calcium 8.1 mg/dl (8.4-10.2); Carbon Dioxide 25 mmol/L (22-30); Chloride 107 mmol/L (98-107); Estimated Creatinine Clearance 63 ml/min; Glucose 145 mg/dl (70-99); Potassium 3.6 mmol/L (3.5-5.1); Sodium 143 mmol/L (135-145); Total Bilirubin 0.7 mg/dl (0.2-1.3); Total Protein 4.9 g/dl (6.3-8.2); eGFR > 60.00
[2024-01-05 07:43] LABS: Glucose - Point of Care 153 mg/dl (70-99)
[2024-01-05 07:55] VITALS: BP 127/75
[2024-01-05] MEDS: ELIQUIS 2.5 MG PO (09:24)
[2024-01-05] MEDS: TOPROL XL 50 MG PO (09:24)
[2024-01-05] MEDS: PROTONIX 40 MG PO (09:24)
[2024-01-05] MEDS: GLUCOPHAGE 500 MG PO (09:24)
[2024-01-05] MEDS: PACERONE 200 MG PO (09:24)
[2024-01-05] MEDS: CORTEF 10 MG PO (09:24)
[2024-01-05] MEDS: DESENEX/MITRAZOL/ZEASORB 1 APPLIC TOPICAL (09:27)
[2024-01-05] MEDS: NOVOLOG FLEXPEN-MODERATE RESISTANCE 1 UNITS SC (09:29)
--- NOTE | 2024-01-05 09:34 | W.PN.HOSP.TC ---
Addendum entered and electronically signed by Salvador Layton MD 01/05/24 23:11:
Attending Addendum-I saw and evaluated the patient. I reviewed the resident�s note and agree with findings and plan as documented in the resident�s note. Sub: seen sitting in chair. feels weak but no other complaints. Full 12 point ROS reviewed and
negative except as documented Exam- vitals reviewed in EMR GEN-NAD chronically ill appearing heart irreg irreg lungs rhonchi at bases abd soft NT LE trace edema
Plan:
# Acute Hypoxemic Respiratory Failure/Severe Sepsis from PNA/Neutropenic Fever
- resolved off o2
- afebrile
- completed course of cefdinir
# Rapid Atrial Fibrillation
- resolved now RC'd
- cards input appreciated
- cont decreased dose PO amiodarone
- cont increased metoprolol XL
- cont eliquis 2.5 (wt<60 age >80)
- echo 12/25- Normal left ventricular size, wall thickness and systolic function.
LV ejection fraction is 55-60%.
Mild aortic stenosis
Moderate tricuspid regurgitation
# Thrush
- fluconazole x 1
- nystatin S/S
# Stage 1 sacral ulcer
- POA
- wound care
# Acute on Chronic Anemia
- no active signs of bleed from ca
- heme check stool-neg
- cont PPI
- tx 1 unit PRBC 01/01
- Hb stable
# Severe Dysphagia/Aspiration
- speech on board
- VFSS- 12/26- severe aspiration
- repeat VFSS 12/28- cont IDDSI 4
- d/w family no feeding tube/DHT
- patient likely aspirating- poor prognosis
- pall care c/s- input appreciated
# Transaminitis
- resolving
# Hypokalemia-
- replete
- repeat BMP in am
# Leukocytosis
- worsening
- from steroids, recent Neulasta, and likely aspirating
- cont to follow
- repeat CBC in am
- poor prognosis
# Adrenal Insufficiency due to adenoma
- repeat BMP in am
- cont home dose PO hydrocortisone
# Lung ca
- s/p Neulasta 12/20 and chemo recently
- hemeonc on board
- repeat labs in am
- poor prog
- pall care conslt appreciated
# DM-
- cont metformin
- cont SSI
# HTN-
- DC'd hydralazine
- cont increased toprol XL
# HLD-
- restart atorvastatin on DC
DVT- on eliquis
CODE- DNR/DNI
Dispo-DC to [facility] today pall care at facility
Time spent coordinating care, DC planning, review of DC plan of care with resident, transition of care, review of records, med rec/scripts sent electronically, consults, notes, d/w consultants, nursing, family, and CM� 36 mins
Original Note:
Today's Communication/Plan
-
Discharge to [facility] with amiodarone 200 per cardiology and Magic mouthwash swish and spit
Assessment / Plan
Assessment / Plan
Impression: 83-year-old female with PMH of A-fib rate controlled on metoprolol, lung cancer presented to ED on 12/25/2023 from SNF unresponsive with concerns of sepsis.
Plan:
# Acute hypoxemic respiratory insufficiency
#severe sepsis secondary to PNA
#neutropenic fever.
-Neutropenia has resolved.
-Leukocytosis likely secondary Neulasta or to aspiration pneumonitis
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
-Off pressors
-Blood cultures 12/25/2023 with coagulase-negative staph, repeat blood culture 12/26/2023 NGTD. Urine cultures NGTD, C. difficile toxin is negative, stool cultures negative.
-COVID-negative.
IV steroids discontinued, now back on home dose PO steroids
No longer receiving antibiotics
Infectious disease has signed off, appreciate recommendations
follow fever curve
PT/OT
Daily CBC
#A-fib with RVR
-Rate controlled on amiodarone.
-Still currently in A-fib
-Continue amio
-CHADVASC score 7; high CVA risk.
-Patient restarted on Eliquis 2.5 twice daily due to her weight and age
-Planning to discharge patient on p.o. amiodarone 200 daily per cardiology
-Cardiology signed off
-Continue metoprolol with holding parameters.
-Monitor on telemetry
-Planning to discharge patient on amiodarone 200 mg per cardiology
-Cardiology appreciated.
# Acute on chronic anemia
Stable
Hemoglobin was 7.0
Consent for blood obtained and patient received 1 unit packed red blood cell on 01/02/2024
Hemoglobin increased from 7-8.8
Daily CBC
#Oral/pharyngeal mucositis
Patient developed sores around outside mouth, complaining of pain with swallowing
Did not see any sores on roof of patient's mouth
Ordered Magic mouthwash rinse and spit with speech and swallow's approval
will discharge with Magic mouthwash rinse and spit
#Leukocytosis
Patient previously had lymphopenia, now has leukocytosis
May be secondary to steroids or to aspiration pneumonitis
#Oral thrush
Oral thrush likely secondary to chemo and immune suppression
Patient was receiving nystatin swish and swallow, however patient was aspirating on nystatin swish and swallow
Discontinue nystatin and replaced with single dose oral fluconazole
Checked EKG before initiating fluconazole, QTc was not prolonged
#Hypokalemia
Resolved
Status post p.o. repletion
Recheck CMP in a.m.
#Hyponatremia
Resolved
Daily CMP
# Hypernatremia
Resolved
Recheck CMP in a.m.
#Hyperglycemia
Likely secondary to steroids
Was covering patient with low resistant sliding scale, increased to medium resistance sliding scale
Restarted patient's home dose metformin
#Acute diarrhea
-Resolved
-Greenish/black stool negative for blood.
-C. difficile antigen positive, toxin negative.
-Salmonella/Shigella culture pending, Campylobacter culture pending, Shiga toxin negative.
# Acute cough
-Severe dysphagia with possible aspiration given CXR reports 12/27/2023.
-Failed video swallow eval. 12/27/2023.
-Family not amenable to feeding tube/PEG.
-PICC line in place 12/26.
-VFSS repeated 12/28, Speech recs IDDS4 with mildly thick liquid per speech.
-Speech appreciated.
# Pancytopenia
Likely secondary to chemo
Has resolved, now has leukocytosis, platelets are recovering, hemoglobin stable around 7
Oral thrush present on mouth, has been getting nystatin swish and swallow
Patient began having aspiration, coughing after swish and swallow nystatin
Discontinue nystatin swish and swallow
Monitor hemoglobin, platelets
Heme-onc recs appreciated, has signed off at this point
check H.H later today and transfuse if hgb<7
Elevated LFTs
Monitor; no abdominal pain
#Hyperkalemia
-Resolved with Bicarb.
-Follow BMP.
#HOLLIE (prerenal)
-Resolved with IV fluid.
-Discontinue Mir.
-Bladder scan protocol. Follow I's and O's.
-Follow creatinine
#Lactic acidosis
-Resolved
-Follow volume status.
#Adrenal insufficiency secondary to adenoma.
-Stress dose steroids bolus in ED.
Now on home dose
-Follow BMP.
#Stage I sacral ulcer
-Due to decubitus pressure.
-Intermittent patient repositioning.
#Hx of Lung cancer.
-Follows oncology at [facility].
-Breathing treatment as needed.
-S/p chemotherapy/immunotherapy
#Essential hypertension
-Continue metoprolol
-Holding hydralazine
#Adrenal insufficiency
-Now on home dose steroid
#Type 2 diabetes mellitus
-Restart metformin
Medium resistance sliding scale
Sugars within acceptable limits today
#GERD
-Continue PPI
#History of CVA
-Continue statin and aspirin when able.
Palliative care discussion:
Spoke to patient about option of palliative care, or continuing with chemotherapy. Patient reports that she does not want to be sick anymore, explained to patient that chemotherapy will likely make her sick again as she only received 1 cycle and
had to be hospitalized for. Recommended continuing conversation with her medical oncologist at [place]. Called daughter to discuss, daughter was in agreements about palliative care discussion and are still currently deciding whether they will or
will not pursue more chemotherapy. Will continue to update daughter throughout stay. Currently planning on having patient follow-up with palliative care consult at her facility after discharge.
Formal palliative care consult placed.
DVT prophylaxis Eliquis
CODE STATUS DNR
Diet: IDDSI 4
Anticipated Discharge: Today
Subjective/Interval History
-
Date of Service: January 05, 2024
No acute events overnight
Objective Data
-
Labs:
Laboratory Results
01/05/24
05:21
WBC 22.3 H
Hgb 8.8 L
Hct 25.9 L
Plt Count 236 D
Sodium 143
Potassium 3.6
Chloride 107
Carbon Dioxide 25
BUN 13
Creatinine 0.6
Glucose 145 H
Calcium 8.1 L
Total Bilirubin 0.7
AST 25
ALT 46 H
Alkaline Phosphatase 99
Vital Signs:
Vital Signs
Temp Pulse Resp BP Pulse Ox
97.9 F 82 20 127/75 97
01/05/24 07:55 01/05/24 07:55 01/05/24 07:55 01/05/24 07:55 01/05/24 07:55
I&O
01/04/24 01/05/24 01/06/24
06:59 06:59 06:59
Intake Total 240 / 240 170 / 170
Balance 240 / 240 170 / 170
Review of Systems
-
History Source: Patient
Constitutional: Reports No Symptoms
EENT: Reports Other (Mouth pain/pain on swallowing)
Respiratory: Reports Cough
Cardiac: Reports No Symptoms
Abdomen/GI: Reports No Symptoms
Physical Exam
-
General: Appears Chronically Ill
Respiratory: Clear to Auscultation
Cardiac: S1/S2 and Irregular Rhythm
GI: Soft, Nontender and Nondistended
Musculoskeletal: No Edema
Skin: Warm and Dry
Neuro: Awake, Alert, Oriented and AO x 3
Psych: Calm and Intact Judgement/Insight
Data Reviewed
-
Labs: Labs Reviewed by me and Discussed with Physician
--- NOTE | 2024-01-05 10:29 | W.DCSUMMARY ---
Addendum entered and electronically signed by Salvador Layton MD 01/05/24 23:12:
Read, reviewed, and agree. See same day progress note for additional details. Poor Prog Pall care at facility.
Uzair Layton MD
Original Note:
Documented by User: Jose Vallejo DO, Resident 01/05/24 17:07
Discharge Summary
Discharge Data
Date of Admission: 12/25/23
Date of Discharge: 01/05/24
-
Pending Results: No
Hospital Course
Discharging Physician : Calin Vallejo
Disposition : [facility]
Primary care physician : Dr. Rach Diaz
Principal Discharge diagnosis : Septic shock
Chronic Discharge diagnosis : Acute hypoxemic respiratory failure, neutropenic fever, atrial fibrillation, acute kidney injury, metabolic acidosis, adrenal insufficiency due to adenoma, lung carcinoma, leukopenia, thrombocytopenia, diabetes
mellitus, hypertension, hyperlipidemia, acute on chronic anemia, leukocytosis, hypokalemia, hyponatremia, hypernatremia, hyperglycemia, acute diarrhea, acute cough, pancytopenia, elevated LFTs, lactic acidosis, stage I sacral ulcer, gastroesophageal
reflux disease, history of CVA
Hospital Course : 83-year-old female past medical history of lung carcinoma on recent chemotherapy, atrial fibrillation presents to [place] emergency department presents from [facility] facility unresponsive with concerns of sepsis. She
follows oncology with [facility]. On ED presentation her blood pressure was 80/45 temperature 104.5 heart rate 161. White blood cell count 3.3 ANC 0.2 lactic acid 7.2. Urinalysis was remarkable for UTI patient was started on vancomycin
cefepime and admitted to the ICU for further management. During her time in the ICU patient required pressors, stress dose steroids and IV fluids. Cardiology was consulted for her rapid A-fib and she was rate controlled on IV amiodarone. She
received anticoagulation with heparin and eventually she was transitioned to oral Eliquis. During her stay she was noted to have pancytopenia which was likely due to chemotherapy. Over time her blood counts continued to improve, eventually
normalizing. She did require 1 unit of packed red blood cells when her hemoglobin was 7. Patient continued to gradually improve, she had many metabolic abnormalities, please see chronic discharge diagnoses for complete list. Eventually IV
antibiotics were transitioned to cefdinir by infectious disease. Patient completed her courses of IV and oral antibiotics. Patient was noted to have a cough, speech and swallow was consulted who performed a swallowing exam on her. They started
her on a high IDDSI 4 diet which she will continue at her long-term care facility. During her stay we had conversation with patient regarding palliative care, they were unaware that chemotherapy was responsible for her acute decompensation. We did
get a formal palliative care consult but we had the conversation regarding whether she should pursue or forego further chemotherapy. Patient states that she does not want to be sick however she does not want to . They did not make a final
decision regarding whether they will pursue chemotherapy or not, we recommended they follow-up with their oncologist at [facility]. At the time of discharge patient's performance status does forbid further chemo, however we will leave her PICC line
in place if she they do decide they would like to pursue further rounds of chemotherapy. Patient will be discharged to her long-term care facility at [facility]. Patient will follow-up with her primary care physician within 1 week of
discharge and her oncologist at [facility]. Patient was discharged on oral amiodarone per cardiology to control her A-fib. She was also discharged with Magic mouthwash to help with sore mouth.
Important imaging findings :
12/25/23 chest xray, impression:
Suspected retrocardiac opacities representing either left lung atelectasis or pneumonia in the proper clinical context. These would be better evaluated on lateral view.
12/27/23 chest xray, impression:
The right upper extremity PICC extends into the right internal jugular vein with tip excluded by collimation.
Findings of right perihilar pneumonia, unchanged.
12/27/23 chest xray, impression:
Mild right perihilar pneumonia, not significantly changed when compared with the prior study
12/27/23 chest xray, impression:
Right PICC line with tip at the level of the right subclavian vein.
Procedure findings :
12/27/23 PICC line insertion
12/29/23 Speech modified barium swallow, findings:
There are large anterior vertebral body endplate osteophytes at C4-5, C5-6 and C6-7 causing impingement on the posterior wall of the cervical esophagus..
Thin liquid barium by spoon: Transient aspiration on first of 2 trials, airway aspiration on second of 2 trials
Thin liquid barium by cup: No penetration or airway aspiration on the first of 2 trials transient aspiration on the second of 2 trials
Thin liquid barium by cup with chin tuck: Supraglottic penetration no airway aspiration
Free [place] consistency barium by spoon and consecutive sips by cup: No penetration or airway aspiration
Free [place] consistency barium single sip by cup: Transient penetration no airway aspiration
Honey consistency and pudding consistency barium by spoon: No penetration or airway aspiration.
Discharge Plan
-
Patient Disposition: [facility]/SNF
Discharge Diagnosis/Procedures: acute hypoxic respiratory failure/severe sepsis /neutropenic fever
Condition: Good
Diet: Other diet
Additional Diets: IDDSI 4 (puree) solids and mildly thick liquids
medications crushed in puree
supervision/assistance with PO intake
Aspiration precautions
Activity: As tolerated
Driving Restrictions: As prior to admission
Bathing Restrictions: None
Activity Restrictions/Additional Instructions:
please follow up at the [facility] with Dr. Diaz within one week of discharge
Please continue your palliative care discussion with your oncologist and palliative care at [facility]
Please follow up with your oncologist at [place]
Referrals:
Rach Diaz MD, Resident [Family Practice Resident Year1] - in less than 1 week
UNKNOWN - PT NOT,INTERVIEWE [Family Provider] -
Additional Discharge Medication Instructions: please start taking amiodarone 200 by mouth daily
please use magic mouth wash rinse and spit for mouth pain
Prescriptions:
New
lidocaine HCl [Lidocaine Viscous] 2 % Solution
5 ml PO QIDPRN PRN (Reason: pain) Qty: 100 3RF
amiodarone 200 mg Tablet
200 mg PO DAILY Qty: 90 0RF
Continued
metformin 500 MG tablet
500 mg PO BID
atorvastatin 80 MG tablet
40 mg PO HS
acetaminophen 325 MG tablet
650 mg PO Q4HPRN PRN (Reason: mild pain/fever>100.4)
metoprolol succinate 25 MG tablet extended release 24 hr
25 mg PO DAILY
lacosamide [Vimpat] 150 MG tablet
150 mg PO BID
nitroglycerin [Nitrostat] 0.4 mg Tablet, Sublingual
0.4 mg SUBLINGUAL [id number] PRN (Reason: chest pain)
hydrocortisone 10 mg Tablet
10 mg PO BID
(DME) [employer]oft Eyelid Cleansing Pads Pad
MISCELLANEOUS
Rx Instructions:
apply topical to both eyes
sodium chloride 0.65 % Aerosol,[place]
1 spray INTRANASAL Q4HPRN PRN (Reason: congestion)
hydralazine 25 mg tablet
50 mg PO Q8H
famotidine [Pepcid] 20 mg Tablet
20 mg PO BID
magnesium hydroxide [Milk of Magnesia] 400 mg/5 mL Suspension
2,400 mg PO DAILYPRN PRN (Reason: constipation lasting more then 3 days)
bisacodyl [Dulcolax (bisacodyl)] 10 mg Suppository
10 mg IL [id number] PRN (Reason: if no bm aftr mom)
ferrous sulfate 325 mg (65 mg iron) Tablet
325 mg PO MOWEFR@0830
Coricidin HBP Cold and Flu 2-325 mg Tablet
2 tab PO Q6H
magnesium oxide 400 mg magnesium Tablet
400 mg PO MOWEFR@0830
Senna Plus 8.6-50 mg Capsule
2 tab-cap PO Q48H@1830
prednisone 10 mg Tablet
30 mg PO UD
Rx Instructions:
give 30mg daily 12/25/23-12/27/23, then 20mg daily on 12/28/23-12/30/23 then 10mg daily on 12/31/23-01/04/24
ondansetron HCl 8 mg Tablet
8 mg PO TIDPRN PRN (Reason: nausea)
dexamethasone 4 mg Tablet
4 mg PO UD
Rx Instructions:
give on 01/08/24 before and after chemo
cranberry 400 mg Capsule
400 mg PO DAILY
folic acid 1 mg Tablet
1 mg PO DAILY
phenol-phenolate sodium Lozenge
1 mónica MUCOUS MEMBRANE Q2HPRN PRN (Reason: cough)
cholecalciferol (vitamin D3) 1,250 mcg (50,000 unit) Tablet
1,250 mcg PO WE
Rx Instructions:
every Monday of each month
Eliquis 2.5 mg Tablet
2.5 mg PO BID
guaifenesin [Mucinex] 600 mg Tablet Extended Release 12hr
600 mg PO TID
Gemtesa 75 mg Tablet
75 mg PO QPM
ipratropium-albuterol 0.5 mg-3 mg(2.5 mg base)/3 mL Solution For Nebulization
3 ml INHALATION R Q6HPRN PRN (Reason: sob)
Discharge Orders:
Discharge Patient (As Directed); Ordered 01/05/24
Ordered By: Jose Vallejo
Discharge Date and Time
Discharge Date/Time: 01/05/24 17:05
Print Language: GUAMANIAN

Documented by User: Salvador Layton MD 01/05/24 23:08
Discharge Summary
Discharge Data
Date of Admission: 12/25/23
Date of Discharge: 01/05/24
Discharge Plan
-
Patient Disposition: [facility]/SNF
Discharge Diagnosis/Procedures: acute hypoxic respiratory failure/severe sepsis /neutropenic fever
Condition: Good
Diet: Other diet
Additional Diets: IDDSI 4 (puree) solids and mildly thick liquids
medications crushed in puree
supervision/assistance with PO intake
Aspiration precautions
Activity: As tolerated
Driving Restrictions: As prior to admission
Bathing Restrictions: None
Activity Restrictions/Additional Instructions:
please follow up at the [facility] with Dr. Diaz within one week of discharge
Please continue your palliative care discussion with your oncologist and palliative care at [facility]
Please follow up with your oncologist at [place]
Referrals:
Rach Diaz MD, Resident [Family Practice Resident Year1] - in less than 1 week
UNKNOWN - PT NOT,INTERVIEWE [Family Provider] -
Additional Discharge Medication Instructions: please start taking amiodarone 200 by mouth daily
please use magic mouth wash rinse and spit for mouth pain
Prescriptions:
New
lidocaine HCl [Lidocaine Viscous] 2 % Solution
5 ml PO QIDPRN PRN (Reason: pain) Qty: 100 3RF
amiodarone 200 mg Tablet
200 mg PO DAILY Qty: 90 0RF
Continued
metformin 500 MG tablet
500 mg PO BID
atorvastatin 80 MG tablet
40 mg PO HS
acetaminophen 325 MG tablet
650 mg PO Q4HPRN PRN (Reason: mild pain/fever>100.4)
metoprolol succinate 25 MG tablet extended release 24 hr
25 mg PO DAILY
lacosamide [Vimpat] 150 MG tablet
150 mg PO BID
nitroglycerin [Nitrostat] 0.4 mg Tablet, Sublingual
0.4 mg SUBLINGUAL [id number] PRN (Reason: chest pain)
hydrocortisone 10 mg Tablet
10 mg PO BID
(DME) [employer]oft Eyelid Cleansing Pads Pad
MISCELLANEOUS
Rx Instructions:
apply topical to both eyes
sodium chloride 0.65 % Aerosol,[place]
1 spray INTRANASAL Q4HPRN PRN (Reason: congestion)
hydralazine 25 mg tablet
50 mg PO Q8H
famotidine [Pepcid] 20 mg Tablet
20 mg PO BID
magnesium hydroxide [Milk of Magnesia] 400 mg/5 mL Suspension
2,400 mg PO DAILYPRN PRN (Reason: constipation lasting more then 3 days)
bisacodyl [Dulcolax (bisacodyl)] 10 mg Suppository
10 mg IL [id number] PRN (Reason: if no bm aftr mom)
ferrous sulfate 325 mg (65 mg iron) Tablet
325 mg PO MOWEFR@0830
Coricidin HBP Cold and Flu 2-325 mg Tablet
2 tab PO Q6H
magnesium oxide 400 mg magnesium Tablet
400 mg PO MOWEFR@0830
Senna Plus 8.6-50 mg Capsule
2 tab-cap PO Q48H@1830
prednisone 10 mg Tablet
30 mg PO UD
Rx Instructions:
give 30mg daily 12/25/23-12/27/23, then 20mg daily on 12/28/23-12/30/23 then 10mg daily on 12/31/23-01/04/24
ondansetron HCl 8 mg Tablet
8 mg PO TIDPRN PRN (Reason: nausea)
dexamethasone 4 mg Tablet
4 mg PO UD
Rx Instructions:
give on 01/08/24 before and after chemo
cranberry 400 mg Capsule
400 mg PO DAILY
folic acid 1 mg Tablet
1 mg PO DAILY
phenol-phenolate sodium Lozenge
1 mónica MUCOUS MEMBRANE Q2HPRN PRN (Reason: cough)
cholecalciferol (vitamin D3) 1,250 mcg (50,000 unit) Tablet
1,250 mcg PO WE
Rx Instructions:
every Monday of each month
Eliquis 2.5 mg Tablet
2.5 mg PO BID
guaifenesin [Mucinex] 600 mg Tablet Extended Release 12hr
600 mg PO TID
Gemtesa 75 mg Tablet
75 mg PO QPM
ipratropium-albuterol 0.5 mg-3 mg(2.5 mg base)/3 mL Solution For Nebulization
3 ml INHALATION R Q6HPRN PRN (Reason: sob)
Discharge Orders:
Discharge Patient (As Directed); Ordered 01/05/24
Ordered By: Jose Vallejo
Discharge Date and Time
Discharge Date/Time: 01/05/24 17:05
Print Language: GUAMANIAN
--- NOTE | 2024-01-05 10:39 | CM ---
Addendum entered by Marcela Rodriguez 01/05/24 11:55:
CM spoke with patients daughter, discussed transport time. Reviewed IMM on phone. Daughter requesting call from nurse, will relay message.
Original Note:
CM reviewed chart, reviewed with Resident, clear for discharge today. Patient scheduled for 3:30 p.m. ambulance transport, update to Jamari in admissions at [facility]. CM left voicemail for patients daughter with transport time, to review IMM. CM
will continue to follow for all discharge planning needs.
Plan; return to [facility], 3:30 p.m. [facility]
Report: [phone]
[2024-01-05 11:55] LABS: Glucose - Point of Care 169 mg/dl (70-99)
[2024-01-05 12:00] VITALS: BP 112/70
[2024-01-05] MEDS: NOVOLOG FLEXPEN-MODERATE RESISTANCE SC (14:42)
[2024-01-05 15:00] VITALS: BP 114/62
== END 2024-01-05 17:05 | DRG 871 ==
LOC: 4 WEST ACU 15:33
PROVIDERS: Internal Medicine; Internal Medicine Cardiovascular Disease; Nurse Practitioner Gerontology; Radiology Diagnostic Radiology; Radiology Vascular & Interventional Radiology; Student in an Organized Health Care Education/Training Program; ADMITTING PHYSICIAN Family Medicine; CONSULT PHYSICIAN Student in an Organized Health Care Education/Training Program; EMERGENCY PHYSICIAN Emergency Medicine; OTHER PHYSICIAN Internal Medicine Hematology & Oncology; OTHER PHYSICIAN Internal Medicine Infectious Disease; OTHER PHYSICIAN Specialist
PROC: 02WY33Z Revision of Infusion Device in Great Vessel, Percutaneous Approach (ICD-10-PCS; 2023-12-27)
PROC: 05H633Z Insertion of Infusion Device into Left Subclavian Vein, Percutaneous Approach (ICD-10-PCS; 2023-12-27)
PROC: 30233N1 Transfusion of Nonautologous Red Blood Cells into Peripheral Vein, Percutaneous Approach (ICD-10-PCS; 2024-01-02)
DX: A41.1 Sepsis due to other specified staphylococcus (principal); D61.810 Antineoplastic chemotherapy induced pancytopenia; J96.01 Acute respiratory failure with hypoxia; R65.21 Severe sepsis with septic shock; J18.9 Pneumonia, unspecified organism; N17.9 Acute kidney failure, unspecified; E87.20 Acidosis, unspecified; E27.40 Unspecified adrenocortical insufficiency; C34.90 Malignant neoplasm of unspecified part of unspecified bronchus or lung; E87.1 Hypo-osmolality and hyponatremia; E87.0 Hyperosmolality and hypernatremia; N39.0 Urinary tract infection, site not specified; Z66 Do not resuscitate; Z51.5 Encounter for palliative care; D75.838 Other thrombocytosis; E78.00 Pure hypercholesterolemia, unspecified; F03.90 Unspecified dementia, unspecified severity, without behavioral disturbance, psychotic disturbance, mood disturbance, and anxiety; I10 Essential (primary) hypertension; I25.10 Atherosclerotic heart disease of native coronary artery without angina pectoris; I35.0 Nonrheumatic aortic (valve) stenosis; I48.0 Paroxysmal atrial fibrillation; G40.909 Epilepsy, unspecified, not intractable, without status epilepticus; L89.151 Pressure ulcer of sacral region, stage 1; D63.0 Anemia in neoplastic disease; E87.5 Hyperkalemia; R50.81 Fever presenting with conditions classified elsewhere; D35.00 Benign neoplasm of unspecified adrenal gland; E11.65 Type 2 diabetes mellitus with hyperglycemia; R19.7 Diarrhea, unspecified; K21.9 Gastro-esophageal reflux disease without esophagitis; N32.81 Overactive bladder; T45.1X5A Adverse effect of antineoplastic and immunosuppressive drugs, initial encounter; Z11.52 Encounter for screening for COVID-19; I25.2 Old myocardial infarction; Z79.01 Long term (current) use of anticoagulants; Z79.84 Long term (current) use of oral hypoglycemic drugs; Z87.891 Personal history of nicotine dependence; Z86.73 Personal history of transient ischemic attack (TIA), and cerebral infarction without residual deficits; Z79.899 Other long term (current) drug therapy
CPT/HCPCS: 36584; 36600; 51702; 71045; 71046; 74230; 80048; 80053; 80069; 80202; 81003; 81015; 82533; 82570; 82805; 82962; 83036; 83605; 83880; 84295; 84300; 85014; 85018; 85025; 85027; 85610; 85730; 86850; 86900; 86901; 86920; 87040; 87045; 87046; 87086; 87205; 87324; 87427; 87449; 87502; 87641; 87811; 92526; 92610; 92611; 93005; 93306; 94640; 96365; 96375; 97162; 97166; 97530; 97535; 99291; J7030; P9016

== ENCOUNTER → 2024-01-12 10:58 | Outpatient (REF) | payer MEDICARE, BC, SELFPAY ==
[2024-01-12 12:20] LABS: ALT (SGPT) 25 U/L (0-35); AST (SGOT) 23 U/L (14-36); Albumin 2.9 g/dl (3.5-5.0); Alkaline Phosphatase 94 U/L (38-126); Blood Urea Nitrogen 21 mg/dl (7-17); Calcium 8.7 mg/dl (8.4-10.2); Carbon Dioxide 28 mmol/L (22-30); Chloride 104 mmol/L (98-107); Glucose 218 mg/dl (70-99); Magnesium 1.3 mg/dl (1.6-2.3); Potassium 4.6 mmol/L (3.5-5.1); Sodium 142 mmol/L (135-145); Total Bilirubin 0.4 mg/dl (0.2-1.3); Total Protein 5.6 g/dl (6.3-8.2); eGFR > 60.00
[2024-01-12 12:29] LABS: NT-proBNP 6610 pg/ml
[2024-01-12 12:38] LABS: Glycohemoglobin (HgbA1c) 7.5 % (4.0-5.6)
[2024-01-12 12:44] LABS: % Basophils 0.1 % (0-2); % Immature Granulocytes 0.9 % (0-0.5); % Lymphocytes 9.3 % (20.5-51.1); % Monocytes 5.2 % (1.7-9.3); % Neutrophils 84.5 % (42.2-75.2); Absolute Immature Granulocytes 0.2 10^3/uL (0-0.05); Absolute Lymphocytes 1.5 10^3/uL (1.2-3.4); Absolute Monocytes 0.8 10^3/uL (0.1-0.6); Absolute Neutrophils 13.4 10^3/uL (1.4-6.5); Hematocrit 30.8 % (37.0-47.0); Hemoglobin 9.8 g/dL (12.0-16.0); Mean Corp Hgb Conc. 31.8 g/dL (33.0-37.0); Mean Corpuscular Hgb 30.7 pg (27.0-31.0); Mean Corpuscular Volume 96.6 fL (81.0-99.0); Mean Platelet Volume 9.4 fL (7.4-10.4); Nucleated Red Blood Cells % 0 %; Platelet Count 361 10^3/uL (130-400); Red Blood Cell Count 3.19 10^6/uL (4.20-5.40); Red Cell Dist. Width 15.9 % (11.5-14.5); White Blood Cell Count 15.8 10^3/uL (4.8-10.8)
== END ==
LOC: OLABN 10:58
PROVIDERS: ATTENDING PHYSICIAN Internal Medicine Geriatric Medicine
DX: D64.9 Anemia, unspecified (principal); J18.9 Pneumonia, unspecified organism; E11.9 Type 2 diabetes mellitus without complications
CPT/HCPCS: 36415; 80053; 83036; 83735; 83880; 85025

== ENCOUNTER → 2024-01-15 09:04 | Outpatient (REF) | payer MEDICARE, BC, SELFPAY ==
[2024-01-15 12:36] LABS: Blood Urea Nitrogen 20 mg/dl (7-17); Calcium 8.5 mg/dl (8.4-10.2); Carbon Dioxide 33 mmol/L (22-30); Chloride 99 mmol/L (98-107); Glucose 135 mg/dl (70-99); Potassium 3.7 mmol/L (3.5-5.1); Sodium 136 mmol/L (135-145); eGFR > 60.00
[2024-01-15 14:36] LABS: Glycohemoglobin (HgbA1c) 7.5 % (4.0-5.6)
== END ==
LOC: OLABN 09:04
PROVIDERS: ATTENDING PHYSICIAN Internal Medicine Geriatric Medicine
DX: Z00.00 Encounter for general adult medical examination without abnormal findings (principal); Z79.84 Long term (current) use of oral hypoglycemic drugs
CPT/HCPCS: 36415; 80048; 83036

== ENCOUNTER → 2024-01-19 09:01 | Outpatient (REF) | payer MEDICARE, BC, SELFPAY ==
[2024-01-19 10:22] LABS: % Basophils 0.3 % (0-2); % Eosinophils 3.3 % (0-6); % Immature Granulocytes 1.1 % (0-0.5); % Lymphocytes 28.8 % (20.5-51.1); % Monocytes 11.2 % (1.7-9.3); % Neutrophils 55.3 % (42.2-75.2); Absolute Eosinophils 0.3 10^3/uL (0-0.7); Absolute Immature Granulocytes 0.1 10^3/uL (0-0.05); Absolute Lymphocytes 2.3 10^3/uL (1.2-3.4); Absolute Monocytes 0.9 10^3/uL (0.1-0.6); Absolute Neutrophils 4.4 10^3/uL (1.4-6.5); Hematocrit 26.6 % (37.0-47.0); Mean Corp Hgb Conc. 33.8 g/dL (33.0-37.0); Mean Corpuscular Volume 91.7 fL (81.0-99.0); Mean Platelet Volume 10.3 fL (7.4-10.4); Nucleated Red Blood Cells % 0 %; Platelet Count 106 10^3/uL (130-400); Red Cell Dist. Width 16.8 % (11.5-14.5); White Blood Cell Count 7.9 10^3/uL (4.8-10.8)
[2024-01-19 10:45] LABS: NT-proBNP 3260 pg/ml
== END ==
LOC: OLABN 09:01
PROVIDERS: ATTENDING PHYSICIAN Internal Medicine Geriatric Medicine
DX: I10 Essential (primary) hypertension (principal); D64.9 Anemia, unspecified; J18.9 Pneumonia, unspecified organism
CPT/HCPCS: 36415; 83880; 85025